=== PATIENT | male | born 1965 | race American Indian/Alaskan Native ===

== ENCOUNTER 2017-05-16 19:00 | Emergency (ER) | payer BC ==
[2017-05-16 19:01] VITALS: BMI 47.3
[2017-05-16 19:25] VITALS: BP 198/90; PULSE 51; RESP 18; TEMP 98.1; O2SAT 95
== END 2017-05-16 21:31 | disposition left against medical advice (07) ==
LOC: ED 19:00
DX: Z02.89 Encounter for other administrative examinations (principal); M79.89 Other specified soft tissue disorders

== ENCOUNTER 2017-12-20 15:19 | Inpatient (IN) | payer BC ==
[2017-12-20 15:20] VITALS: BMI 53.8
[2017-12-20 17:00] LABS: BASO # 0.01 K/mm3 (0.0-2.0); BASO % 0.2 % (0.0-3.0); EOS # 0.1 (0.0-0.7); EOS % 1.3 % (1.5-5.0); GRAN # 2.2 (1.4-6.5); GRAN % 41.6 % (50.0-68.0); HEMOGLOBIN 11.4 g/dL (14.0-18.0); LYMPH # 2.4 (1.2-3.4); LYMPH % 44.8 % (22.0-35.0); MEAN CELL VOLUME 97.9 fl (80.0-105.0); MEAN CORPUSCULAR HGB CONC 34.8 g/dl (31.0-37.0); MEAN PLATELET VOLUME 10.1 fl (7.0-11.0); MONO # 0.6 (0.1-0.6); MONO % 12.1 % (1.0-6.0); RBC 3.35 10^6/uL (3.5-6.1); RED CELL DISTRIBUTION WIDTH 12.7 % (11.5-14.5); WHITE BLOOD COUNT 5.3 10^3/ul (4.5-11.0)
[2017-12-20 17:11] LABS: INR 1.09 (0.93-1.08); PARTIAL THROMBOPLASTIN TIME 33.5 Seconds (25.1-36.5); PROTHROMBIN TIME 12.4 SECONDS (9.4-12.5)
[2017-12-20 18:01] LABS: ALB/GLOB RATIO 0.9 (1.1-1.8); ALBUMIN 3.5 g/dL (3.0-4.8); CALCIUM 9.6 mg/dL (8.4-10.5)
[2017-12-20 18:11] LABS: TROPONIN I 0.06 ng/mL
[2017-12-20 18:13] LABS: CK-MB 1.8 ng/mL (0.0-3.6)
--- NOTE | 2017-12-20 18:35 | RAD ---
HISTORY: Shortness of breath. COMPARISON: 04/19/2016 FINDINGS: LUNGS: No active pulmonary disease. PLEURA: No significant pleural effusion identified, no pneumothorax apparent. CARDIOVASCULAR: Cardiomegaly. No evidence of acute, significant cardiovascular disease. OSSEOUS STRUCTURES: No significant abnormalities. VISUALIZED UPPER ABDOMEN: Normal. OTHER FINDINGS: None. IMPRESSION: No active pulmonary disease. Cardiomegaly a new finding compared to the prior study.
--- NOTE | 2017-12-20 18:40 | ED PDOC ---
Arrival/HPI - General Chief Complaint: Shortness Of Breath Time Seen by Provider: 12/20/17 15:55 Historian: Patient - History of Present Illness Narrative History of Present Illness (Text): 12/20/17 19:44 Patient is a 52 yo male past medical history of DM, htn, cad, presents to ED from PMD office with history of dsypnea with exertion, swelling to legs and abdomen for the past 2-3 weeks. Patient reports several weeks ago developing cough, congestion, sore throat. State he was treated for "strep throat" but still has congestion and cough, now with increased swelling to legs and abdomen. Patient sent from Dr. Falcon office for evaluation and admission. Symptom Onset: Gradual Past Medical History - Infectious Disease Hx of Infectious Diseases: None - Tetanus Immunization Tetanus Immunization: Unknown - Cardiac Hx Congestive Heart Failure: Yes Hx AR: Yes Hx Hypertension: Yes - Pulmonary Hx Respiratory Disorders: Yes Hx Respiratory Tract Infection: Yes - Neurological Hx Alzheimer's Disease: No HX Cerebrovascular Accident: No Hx Dementia: No Hx Dizziness: No Hx Meningitis: No Hx Parkinson's Disease: No Hx Seizures: No Hx Transient Ischemic Attacks (TIA): No - HEENT Hx HEENT Disorder: Yes (reading glasses) Hx Cataracts: No Hx Difficulty Chewing: No Hx Epistaxis: No Hx Glaucoma: No Hx Macular Degeneration: No - Renal Hx Renal Disorder: No Hx Dialysis: No Hx Kidney Stones: No Hx Neurogenic Bladder: No Hx Renal Cancer: No - Endocrine/Metabolic Hx Endocrine Disorders: Yes Hx Diabetes Mellitus Type 2: Yes - Hematological/Oncological Hx Blood Transfusions: Yes Hx Blood Transfusion Reaction: No - Integumentary Hx Dermatological Disorder: No Hx Basal Cell Carcinoma: No Hx Eczema: No Hx Melanoma: No Hx Psoriasis: No Hx Squamous Cell Carcinoma: No Other/Comment: scar r knee and from welding accidents on arms legs and torso - Musculoskeletal/Rheumatological Hx Falls: No - Gastrointestinal Hx Gastrointestinal Disorders: Yes (obese) Hx Colostomy: No Hx Crohn's Disease: No Hx Diverticulitis: No Hx Gall Bladder Disease: No Hx Gastroesophageal Reflux: No Hx Pancreatitis: No - Genitourinary/Gynecological Hx Genitourinary Disorders: No Hx Hematuria: No Hx Incontinence: No Hx Prostate Problems: No Hx Sexually Transmitted Diseases: No Hx Urinary Tract Infection: No - Psychiatric Hx Emotional Abuse: No Hx Physical Abuse: No Hx Substance Use: No - Surgical History Hx Cardiac Catheterization: Yes Hx Coronary Stent: Yes (X1) Hx Orthopedic Surgery: Yes (right knee replacement) - Anesthesia Hx Anesthesia Reactions: No Hx Malignant Hyperthermia: No - Suicidal Assessment Feels Threatened In Home Enviroment: No Family/Social History Family/Social History: Unknown Family HX Smoking Status: Never Smoked Hx Alcohol Use: No Hx Substance Use: No Hx Substance Use Treatment: No Allergies/Home Meds Allergies/Adverse Reactions: Allergies aspirin Allergy (Verified 12/20/17 15:35) ANAPHYLAXIS Home Medications: Home Meds Medication Instructions Recorded Confirmed Clonidine HCl [Catapres] 0.1 mg PO DAILY 01/10/16 12/14/17 Clopidogrel [Plavix] 75 mg PO DAILY 01/10/16 12/14/17 Colchicine 0.6 mg PO TID PRN 01/10/16 12/14/17 Febuxostat [Uloric] 40 mg PO DAILY 01/10/16 12/14/17 Furosemide [Lasix] 40 mg PO BID 01/10/16 12/14/17 Insulin Aspart [Novolog] 30 units SC TID 01/10/16 12/14/17 Insulin Detemir [Levemir Flextouch] 60 units SC BID 01/10/16 12/14/17 Multivit-Min/FA/Lycopen/Lutein 1 tab PO DAILY 01/10/16 12/14/17 [Centrum Silver Tablet] Nebivolol [Bystolic] 10 mg PO DAILY 01/10/16 12/14/17 [place]y-3/Dha/Epa/Fish Oil [Fish Oil 1 cap PO DAILY 01/10/16 12/14/17 [place]y-3 Softgel] Potassium Chloride [Klor-Con 10] 10 meq PO DAILY 01/10/16 12/14/17 Pramlintide Acetate [Symlinpen 60] 60 units SC DAILY 01/10/16 12/14/17 metOLazone [Zaroxolyn] 5 mg PO DAILY 01/10/16 12/14/17 Review of Systems - Review of Systems Constitutional: Fatigue. absent: Fevers Eyes: absent: Vision Changes ENT: absent: Hearing Changes Respiratory: SOB, Cough. absent: Sputum, Wheezing Cardiovascular: Edema, PORTILLO. absent: Chest Pain, Palpitations, Calf Pain, Orthopnea, Syncope Gastrointestinal: Appetite Changes. absent: Abdominal Pain, Nausea, Hematochezia, Hematemesis Genitourinary Male: absent: Dysuria, Frequency Musculoskeletal: absent: Back Pain Skin: absent: Rash Neurological: absent: Headache, Focal Weakness Endocrine: absent: Polyuria Physical Exam Vital Signs Reviewed: Yes Vital Signs Temp Pulse Resp BP Pulse Ox 12/20/17 22:00 83 12/20/17 21:02 62 162/105 H 12/20/17 18:41 75 18 196/90 H 97 12/20/17 18:00 18 12/20/17 15:35 97.4 F L 71 18 197/98 H 96 Temperature: Afebrile Blood Pressure: Hypertensive Appearance: Positive for: Uncomfortable Pain Distress: Mild Mental Status: Positive for: Alert and Oriented X 3 Finger Stick Blood Glucose: 77 - Systems Exam Head: Present: Atraumatic Pupils: Present: PERRL Mouth: Present: Moist Mucous Membranes Pharnyx: No: ERYTHEMA Nose (Internal): Present: Normal Inspection Neck: Present: Normal Range of Motion, JVD Respiratory/Chest: Present: Clear to Auscultation. No: Respiratory Distress, Wheezes, Tachypneic Cardiovascular: Present: Regular Rate and Rhythm, Murmurs Abdomen: Present: Distention. No: Peritoneal Signs Rectal: No: Gross Blood Back: No: CVA Tenderness Upper Extremity: No: Cyanosis Lower Extremity: Present: Edema, Neurovascularly Intact. No: CALF TENDERNESS Neurological: Present: Motor Func Grossly Intact, Normal Sensory Function Skin: Present: Warm Psychiatric: Present: Alert, Normal Insight, Normal Concentration Medical Decision Making ED Course and Treatment: Patient sent from PMD office noted to have leg edema, sob with exertion. EKG with no acute changes. Report Date : 12/20/2017 18:33:27 Procedure: Chest xray Dictator : Ángel Botello MD IMPRESSION: No active pulmonary disease. Cardiomegaly a new finding compared to the prior study. Patient took extra lasix prior to arrival. Seen by nurse clinical Dr. Spring in ED. On re-exam, at rest, he is breathing comfortably, denies abdominal or chest pain. Eats without difficulty, no nausea or vomiting. Clonidine ordered for HTN. Dr. Falcon updated with patient's status. Patient to be admitted to Dr. Vick Vallecillo's service as hospitalist service capped at this point. Reassessment Condition: Re-examined - Lab Interpretations Lab Results: 12/20/17 16:55 12/20/17 17:00 Lab Results 12/20/17 17:15: Influenza Typ A,B (EIA) Negative for flu a/b 12/20/17 17:00: Sodium 140, Potassium 3.6, Chloride 99, Carbon Dioxide 33, Anion Gap 12, BUN 54 H, Creatinine 1.8 H, Est GFR ( Amer) 48, Est GFR ( Non-Af Amer) 40, Random Glucose 75, Calcium 9.6, Total Bilirubin 0.7, AST 56, ALT 40, Alkaline Phosphatase 91, Lactate Dehydrogenase 795 H, Total Creatine Kinase 271 H, CK-MB (CK-2) 1.8, CK-MB (CK-2) % Cancelled, Troponin I 0.06, NT- Pro-B Natriuret Pep 1460 H, Total Protein 7.3, Albumin 3.5, Globulin 3.8, Albumin/Globulin Ratio 0.9 L 12/20/17 17:00: PT 12.4, INR 1.09 H, APTT 33.5 12/20/17 16:55: WBC 5.3, RBC 3.35 L, Hgb 11.4 L, Hct 32.8 L, MCV 97.9, MCH 34.0 , MCHC 34.8, RDW 12.7, Plt Count 197, MPV 10.1, Gran % 41.6 L, Lymph % (Auto) 44.8 H, [place] % (Auto) 12.1 H, Eos % (Auto) 1.3 L, Baso % (Auto) 0.2, Gran # 2.20 , Lymph # 2.4, [place] # 0.6, Eos # 0.1, Baso # 0.01 12/20/17 16:20: POC Glucose (mg/dL) 77 - RAD Interpretation Radiology Orders: 12/20/17 16:13 CHEST PORTABLE [RAD] Stat - EKG Interpretation EKG Interpretation (Text): 12/20/17 19:53 EKG at 16:09 normal sinus rhythm rate of [address] elevations Interpreted by ED Physician: Yes Type: 12 lead EKG - Medication Orders Current Medication Orders: Clonidine HCl (Catapres) 0.1 mg PO BID DANNY Clopidogrel Bisulfate (Plavix) 75 mg PO DAILY DANNY Furosemide (Lasix) 40 mg IVP DAILY DANNY Insulin Human Regular (Humulin R High) 0 units SC ACHS DANNY PRN Reason: Protocol Last Admin: 12/20/17 21:57 Dose: Not Given Non-Admin Reason: Blood Sugar Parameter Nebivolol [Bystolic] (10 Mg) 10 mg PO DAILY DANNY Potassium Chloride (Klor-Con 10) 10 meq PO DAILY DNANY Discontinued Medications Clonidine HCl (Catapres) 0.1 mg PO ONCE STA Stop: 12/20/17 19:28 Last Admin: 12/20/17 21:02 Dose: 0.1 mg MAR Pulse and Blood Pressure Document 12/20/17 21:02 HI (Rec: 12/20/17 21:02 [place] [id number]) Pulse Pulse Rate (60-90) 62 Blood Pressure Blood Pressure (100/60-150/90) 162/105 Furosemide (Lasix) 40 mg IVP ONCE ONE Stop: 12/20/17 20:00 Last Admin: 12/20/17 21:02 Dose: 40 mg MAR Blood Pressure Document 12/20/17 21:02 HI (Rec: 12/20/17 21:03 [place] [id number]) Blood Pressure Blood Pressure (100/60-150/90) 162/105 IVP Administration Document 12/20/17 21:02 HI (Rec: 12/20/17 21:03 [id number] Charges for Administration # of IVP Administrations 1 Disposition/Present on Arrival - Present on Arrival Any Indicators Present on Arrival: Yes History of DVT/PE: No History of Uncontrolled Diabetes: Yes Urinary Catheter: No History of Decub. Ulcer: No History Surgical Site Infection Following: None - Disposition Have Diagnosis and Disposition been Completed?: Yes Diagnosis: Edema, CHF (congestive heart failure) Disposition: HOSPITALIZED Disposition Time: 19:00 Patient Plan: Admission, Telemetry Patient Problems: Current Active Problems Problem Status Onset CHF (congestive heart failure) Acute Edema Acute Condition: FAIR
[2017-12-20] MEDS ORDERED: Insulin Reg-HIGH-Coverage SC SCH (22:00)
--- NOTE | 2017-12-20 23:40 | CARD ---
APPROVED REPORT EKG Measurement Heart [id number] <Conclusion> Normal sinus rhythm Possible Anterior infarct, age undetermined Abnormal ECG
--- NOTE | 2017-12-21 00:07 | CON ---
CARDIOLOGY CONSULTATION DATE: 12/20/2017 HISTORY: The patient is a 52-year-old male who was sent here from his PMD's office for progressive pedal edema. PAST MEDICAL HISTORY: The patient's past medical history is notable for hypertension, diabetes mellitus, obesity, and hypercholesterolemia. He has a history of a cardiomyopathy, which on recent cardiac evaluation is improved. His ejection fraction went from 40% up to 50%. His last stress test and echocardiogram confirmed, which was performed a few days ago. SOCIAL HISTORY: The patient does not smoke. REVIEW OF SYSTEMS: A 14-point review of systems is reviewed in detail. He does complain of shortness of breath. Negative angina. Review of his diet, the patient has cut down on his calories; however, his salt intake is still high. PHYSICAL EXAMINATION: VITAL SIGNS: Blood pressure is 190 systolic and heart rate in the 70s. NECK: Negative JVD. LUNGS: Decreased breath sounds bilaterally. HEART: Reveal S1 and S2. EXTREMITIES: 1 to 2+ edema. DIAGNOSTIC DATA: EKG shows no acute changes. LABORATORY DATE: The creatinine is pending. Chest x-ray shows no CHF. IMPRESSION: 1. Accelerated hypertension. 2. History of cardiomyopathy, which is improved. 3. Diabetes mellitus. 4. Hypertension. 5. Hypercholesterolemia. 6. Obesity. 7. Pedal edema. 8. Likely renal insufficiency. PLAN: Given these findings, we will start the patient on low-salt diet. I have discussed with him about low-salt intake. Awaiting for his BUN and creatinine to come back. We will begin IV Lasix. Tarik Spring MD
[2017-12-21] MEDS ORDERED: Potassium Chloride 10 mEq ER Tab PO SCH (10:00)
[2017-12-21] MEDS: Insulin Reg-HIGH-Coverage SC SCH ×3 (12:58→22:30)
--- NOTE | 2017-12-21 13:33 | US ---
PROCEDURE: Ultrasound of the Kidneys HISTORY: SUSAN COMPARISON: 03/03/2013 abdominal ultrasound. TECHNIQUE: Sonogram of the kidneys. FINDINGS: RIGHT KIDNEY: Measures: 6.8 x 11.1 cm. Normal in size, contour and echogenicity. No stone, solid mass lesion or hydronephrosis visualized. LEFT KIDNEY: Measures: 7.8 x 12.3 cm. Normal in size, contour and echogenicity. No stone, solid mass lesion or hydronephrosis visualized. OTHER FINDINGS: None. IMPRESSION: Unremarkable renal sonogram.
--- NOTE | 2017-12-21 13:34 | US ---
PROCEDURE: Urinary bladder ultrasound HISTORY: SUSAN COMPARISON: 03/03/2013 ultrasound urinary bladder TECHNIQUE: Standard protocol for this study/examination. FINDINGS: Urinary bladder assessment: Prevoid volume: 1286 ml Postvoid residual: 67.3 rib ml Intrinsic, mural, perivesical abnormalities: None Ureteral jets: Not visualized bilaterally. Incidental finding(s): Small volume prostate. Transabdominal measurements correspond to a prostate volume 6.1 mL. IMPRESSION: Large capacitance bladder, small postvoid residual. No focal abnormalities.
--- NOTE | 2017-12-21 14:45 | CP.PCM.CON ---
History of Present Illness - History of Present Illness History of Present Illness: Initial Nephrology Consultation: Assessment: Stable Acute Kidney Injury (N17.9) ? etiology Diabetic chronic Kidney Disease (E11.22)/Hypertensive Chronic Kidney Disease ( I12.9) Chronic Kidney Disease (N18.2) Stage 2 with ? mg proteinuria (R80.9) possibly due to AKIs Anemia (D64.9), HTN (I12.9) morbid obesity, fluid overload moderate pulm HTN large capacitance urinary bladder Plan No acute need for renal replacement therapy at this time. Hypertension control with meds as ordered. Patient not on ACEI/ARB due to SUSAN Monitor Input/Output, daily weights and renal function with basic metabolic panel continue with lasix as per cardiology supplement electrolytes Check urine analysis, spot protein/creatinine and albumin/creatinine ratio, done renal/bladder sonogram. further work up depending upon urine studies Dose meds/antibiotics for reduced GFR. Avoid fleets enema/magnesium based laxatives. Avoid nephrotoxins/NSAIDs/ iodinated contrast (unless needed emergently) Glycemic control Further work up/management as per primary team weight loss Thanks for allowing me to participate in care of your patient. Will follow patient with you. Please call if any Qs Dr Miquel Vega Office: [phone] Chief Complaint; legs swelling HPI: Pt is a 52 M with hx of diabetes Mellitus (10 years), hypertension (many years) morbid obesity, episodes of SUSAN since 2002 with peaked cr 2.0 and baseline close to 1.1 presented with complaints of worsening leg swelling and abdomen distension over last few weeks. pt reports it over last few months. not aware about kidney issues in past Denies OTC/herbal meds or NSAIDs No recent iodinated contrast exposure. No obvious episodes of low BP. ROS: Cardiovascular: No chest pain. Pulmonary: No shortness of breath at present Gastrointestinal: denies abdominal pain No nausea. No vomiting. but c/o abdomen distension Genitourinary: No pain while urinating. Denies blood in urine. no symptoms of BPH All other negative Physical Examination: General Appearance: Comfortable, in no acute respiratory distress, co-operative . morbid obesity Vitals reviewed and noted as below Head; Atraumatic, normocephalic ENT: no ulcers no thrush. Tongue is midline. Oropharynx: no rash or ulcers. EYES: Pupils are equal, round and reactive to light accommodation. Eye muscles and extraocular movement intact. Sclera is anicteric. Neck; supple no lymphadenopathy, no thyromegaly or bruit Lungs: Normal respiratory rate/effort. Breath sounds bilateral equal and clear Heart: Normal rate. s1s2 normal. No rub or gallop. Extremities: 2-3+ edema. No varicose veins Neurological: Patient is alert, awake and oriented to person, place and time. No focal deficit. Strength bilateral appropriate and equal Skin: Warm and dry. Normal turgor. No rash. Palpitation: Normal elasticity for age Abdomen: Abdomen is soft. Bowel sounds +. There is no abdominal tenderness, no guarding/rigidity no organomegaly. abdomen wall edema + very distended hence exam limited Psych: normal insight and normal affect/mood MSK: no joint tenderness or swelling. Digits and nails normal, no deformity : kidney or bladder not palpable but exam limited due to obesity Labs/imaging reviewed. Past medical history, past surgical history, family history, social history, allergy reviewed and noted as below Family hx: no hx of CKD. Rest non-contributory echo moderate pulm HTN CPK 271 BNP 1400 renal sono WNL. bladder sono 1286 mL PVR minimal: large capacitance bladder Past Patient History - Infectious Disease Hx of Infectious Diseases: None - Tetanus Immunizations Tetanus Immunization: Unknown - Past Medical History & Family History Past Medical History?: Yes - Past Social History Smoking Status: Never Smoked - CARDIAC Hx Cardiac Disorders: Yes Hx Hypertension: Yes - PULMONARY Hx Respiratory Disorders: No - NEUROLOGICAL Hx Neurological Disorder: No - HEENT Hx HEENT Problems: No - RENAL Hx Chronic Kidney Disease: No - ENDOCRINE/METABOLIC Hx Endocrine Disorders: Yes Hx Diabetes Mellitus Type 2: Yes - HEMATOLOGICAL/ONCOLOGICAL Hx Blood Disorders: No - INTEGUMENTARY Hx Dermatological Problems: No - MUSCULOSKELETAL/RHEUMATOLOGICAL Hx Musculoskeletal Disorders: Yes Hx Arthritis: Yes Hx Falls: No - GASTROINTESTINAL Hx Gastrointestinal Disorders: No - GENITOURINARY/GYNECOLOGICAL Hx Genitourinary Disorders: No - PSYCHIATRIC Hx Psychophysiologic Disorder: No Hx Substance Use: No - SURGICAL HISTORY Hx Surgeries: Yes Hx Coronary Stent: Yes Other/Comment: Right knee replacement - ANESTHESIA Hx Anesthesia Reactions: No Hx Malignant Hyperthermia: No Meds Allergies/Adverse Reactions: Allergies Allergy/AdvReac Type Severity Reaction Status Date / Time aspirin Allergy ANAPHYLAXIS Verified 12/20/17 15:35 - Medications Medications: Current Medications Clonidine HCl (Catapres) 0.1 mg PO BID [facility] Last Admin: 12/21/17 10:37 Dose: 0.1 mg Clopidogrel Bisulfate (Plavix) 75 mg PO DAILY [facility] Last Admin: 12/21/17 10:38 Dose: 75 mg Furosemide (Lasix) 40 mg IVP BID [facility] Insulin Human Regular (Humulin R High) 0 units SC ACHS [facility] PRN Reason: Protocol Last Admin: 12/21/17 12:58 Dose: 7 units Nebivolol [Bystolic] (10 Mg) 10 mg PO DAILY [facility] Last Admin: 12/21/17 10:39 Dose: Not Given Potassium Chloride (Klor-Con 10) 10 meq PO DAILY [facility] Last Admin: 12/21/17 10:38 Dose: 10 meq Results - Vital Signs Recent Vital Signs: Last Vital Signs Temp 97.9 F 12/21/17 06:00 Pulse 69 12/21/17 10:37 Resp 20 12/21/17 06:00 BP 156/83 H 12/21/17 10:39 Pulse Ox 95 12/21/17 06:00 - Labs Result Diagrams: 12/20/17 16:55 12/20/17 17:00 Labs: Laboratory Results - last 24 hr 12/20/17 21:55 POC Glucose (mg/dL) 181 H
--- NOTE | 2017-12-21 15:07 | HP ---
HISTORY OF PRESENT ILLNESS: I was called to put him on my service from the emergency room. 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 He was treated for strep throat on an outpatient basis as well as congestion and cough, increasing swelling in the legs and he was sent to the emergency room by the physician with failed outpatient treatment. He has a past medical history of diabetes, hypertension,CAD. He is morbidly obese. He has respiratory infection, respiratory disorders. He wears reading glasses. Diabetes. He had blood transfusions in the past. He had scar of the right knee from a welding accident on arms, legs, and torso. He is morbidly obese. He had cardiac catheterization with coronary stent, right knee replacement. Hypertension in the family. SOCIAL HISTORY: Never smoked. No alcohol, no drugs. ALLERGIES: HE IS ALLERGIC TO ASPIRIN. MEDICATIONS: He take Catapres, Plavix, colchicine for gout, Uloric, Lasix, NovoLog for diabetes, Levemir, multivitamin, Bystolic for hypertension, omega-3 fatty oil, potassium, SymlinPen and Zaroxolyn. REVIEW OF SYSTEMS: He is fairly comfortable at this time. No apparent fevers, a little bit tired, no changes in vision or changes in hearing. He is a little short of breath, coughing. No wheezing. He has shortness of breath. He has dyspnea on exertion. He has edema of the legs. He has appetite changes, not hungry. No problems with urinating, no back pain, no apparent rashes or ulcers that are new. No headache or focal weakness. No problems with urinating. PHYSICAL EXAMINATION VITAL SIGNS: He has 97.4 temperature, 71 pulse, 18 respiratory rate, blood pressure 197/98, and O2 sat is 96% on room air. HEENT: Head is atraumatic, normocephalic. Extraocular muscles are intact. Pupils equally reactive to light. Throat is moist. NECK: Supple. HEART: Regular rate. LUNGS: Decreased breath sounds bilaterally, but clear to auscultation. ABDOMEN: Soft. Morbidly obese, nontender. Positive bowel sounds. No guarding, no rebound, no CVA tenderness. RECTAL: Was done in the ER, no gross blood. No CVA tenderness. EXTREMITIES: He has +4/4 pitting edema bilaterally the legs. NEUROLOGIC: Cranial nerves II through XII are grossly intact. Motor function is grossly intact. Alert and oriented x3. LYMPHATICS: Thyroid is difficult to palpate. He is very obese. LABORATORY DATA: He has 5.3 white count, 11.4 hemoglobin, 32.8 hematocrit with 197,000 platelets and 1.19 INR. He has 140 sodium, potassium 3.6, BUN 54, creatinine 1.8. elevated BUN and creatinine. Sugar is 181, calcium is 9.6. Total bilirubin is 0.7. AST is 56, ALT is 40, alkaline phosphatase is 91, and lactate dehydrogenase is 795. Troponin I 0.06. BNP was high was at 1460, and total protein is 7.3. Negative for the flu. He had a chest x-ray, which showed cardiomegaly, new findings compared to prior study. He has consult with Dr. Spring I called Renal to evaluate his kidney function. He is back on his medications, will be diuresed. Hopefully, get out of bed to chair. I will check his insulin and his labs and will continue with aggressive treatment and care for CHF. I also discussed weight loss reckoning he is morbidly obese and he is a diabetic, so we discussed the diet. acute CHF, edema, and dyspnea on exertion. Ángel Vallecillo DO MTD
[2017-12-21 17:07] LABS: URINE BILIRUBIN NEGATIVE (NEGATIVE); URINE BLOOD SMALL (NEGATIVE); URINE GLUCOSE (UA) 250 mg/dL (NEGATIVE); URINE LEUKOCYTE ESTERASE NEGATIVE Leu/uL (NEGATIVE); URINE NITRATE NEGATIVE (NEGATIVE); URINE PROTEIN 100 mg/dL (<30 mg/dL); URINE UROBILINOGEN 0.2 E.U./dL (<1 E.U./dL)
[2017-12-21 17:16] LABS: URINE APPEARANCE SL CLOUDY (CLEAR); URINE COLOR YELLOW (YELLOW)
[2017-12-21 17:34] LABS: CREATININE,RANDOM URINE 53 mg/dL; TOTAL PROTEIN,RANDOM URINE 252 mg/L
[2017-12-21 17:35] LABS: URINE EPITHELIAL CELLS 0 - 2 /hpf (0-5); URINE WBC 0 - 2 /hpf (0-6)
--- NOTE | 2017-12-21 19:08 | PN ---
DATE: 12/21/2017 CARDIOLOGY FOLLOWUP NOTE SUBJECTIVE: The patient's edema is slightly better with IV Lasix. OBJECTIVE: VITAL SIGNS: Blood pressure is 156/83, the heart rate is in the 60s. NECK: Negative JVD. LUNGS: Decreased breath sounds without rales. HEART: Reveals S1 and S2. EXTREMITIES: 1+ edema. LABORATORY: Hemoglobin is 11.4. Chemistries, BUN and creatinine are 54 and 1.8 with a GFR of 48. IMPRESSION: 1. Morbid obesity. 2. . 3. . 4. . 5. Hypertension. 6. Renal insufficiency. Given these findings, I have discussed with the patient about weight loss program. The patient wants to know about bariatric surgery. Tarik Spring MD
[2017-12-22 06:50] VITALS: BP 150/75; RESP 20; TEMP 97.7; O2SAT 93
[2017-12-22 07:10] LABS: HEMOGLOBIN 10.5 g/dL (14.0-18.0); MEAN CELL VOLUME 97.8 fl (80.0-105.0); MEAN CORPUSCULAR HEMOGLOBIN 32.5 pg (25.0-35.0); MEAN CORPUSCULAR HGB CONC 33.2 g/dl (31.0-37.0); MEAN PLATELET VOLUME 10.5 fl (7.0-11.0); RBC 3.23 10^6/uL (3.5-6.1); RED CELL DISTRIBUTION WIDTH 12.5 % (11.5-14.5); WHITE BLOOD COUNT 3.9 10^3/ul (4.5-11.0)
[2017-12-22 07:51] LABS: ALB/GLOB RATIO 0.9 (1.1-1.8); ALBUMIN 3.1 g/dL (3.0-4.8); CALCIUM 9.3 mg/dL (8.4-10.5)
[2017-12-22] MEDS: Insulin Reg-HIGH-Coverage SC SCH (08:16)
[2017-12-22] MEDS ORDERED: Potassium Chloride 20 mEq ER Tab PO SCH (09:55)
--- NOTE | 2017-12-22 10:15 | PN ---
DATE: SUBJECTIVE: I saw him walking in his room. He is still having swollen legs. He is morbidly obese. He is eating well. Dr. Spring bumped up the Lasix to 40 mg twice a day. PHYSICAL EXAMINATION: VITAL SIGNS: He has a 97.7 temp, 72 pulse, 150/75 blood pressure, 20 respiratory rate, 93% O2 sat on room air. HEENT: His head is atraumatic, normocephalic. HEART: His heart is regular rate. LUNGS: Decreased breath sounds, but clear. ABDOMEN: Soft, morbidly obese. EXTREMITIES: +2/4 pitting edema. Maybe some improvement with the Lasix; hopefully it will improve with twice a day. MEDICATIONS: He is currently on Catapres, insulin, potassium, Lasix twice a day, Bystolic and Plavix. LABORATORY DATA: He has a 138 sodium, potassium 3.6. BUN is down to 45, creatinine is down to 1.5, improving. GFR is 49, blood sugar is 191, calcium is 9.3, total bili is 0.7, AST is 43, ALT is 39, alk phos 77, total protein 6.6. White count 3.9, hemoglobin 10.5, hematocrit 31.6, platelets of 187. ASSESSMENT AND PLAN: He is improving. He probably needs another day of IV diuresis. As per Dr. Spring, his kidney functions are improving. He is here for diabetes, coronary artery disease, congestive heart failure with edema, hypertension, renal insufficiency, obesity. We will check his labs tomorrow, diurese him as per Dr. Spring and Dr. Vega. Ángel Vallecillo DO
[2017-12-22 11:17] VITALS: PULSE 68
--- NOTE | 2017-12-22 15:06 | CP.PCM.PN ---
Subjective - Date & Time of Evaluation Date of Evaluation: 12/22/17 Time of Evaluation: 10:00 - Subjective Subjective: Follow up Nephrology Consultation: Assessment: Stable Acute Kidney Injury (N17.9) ? etiology Diabetic chronic Kidney Disease (E11.22)/Hypertensive Chronic Kidney Disease ( I12.9) Chronic Kidney Disease (N18.2) Stage 2 with ? mg proteinuria (R80.9) possibly due to AKIs Anemia (D64.9), HTN (I12.9) morbid obesity, fluid overload moderate pulm HTN large capacitance urinary bladder Plan No acute need for renal replacement therapy at this time. Hypertension control with meds as ordered. Patient not on ACEI/ARB due to SUSAN Monitor Input/Output, daily weights and renal function with basic metabolic panel continue with lasix as per cardiology supplement electrolytes Dose meds/antibiotics for reduced GFR. Avoid fleets enema/magnesium based laxatives. Avoid nephrotoxins/NSAIDs/ iodinated contrast (unless needed emergently) Glycemic control Further work up/management as per primary team weight loss Thanks for allowing me to participate in care of your patient. Will follow patient with you. Please call if any Qs Dr Miquel Vega Office: [phone] Chief Complaint; legs swelling HPI: Pt is a 52 M with hx of diabetes Mellitus (10 years), hypertension (many years) morbid obesity, episodes of SUSAN since 2002 with peaked cr 2.0 and baseline close to 1.1 presented with complaints of worsening leg swelling and abdomen distension over last few weeks. pt reports it over last few months. not aware about kidney issues in past Denies OTC/herbal meds or NSAIDs No recent iodinated contrast exposure. No obvious episodes of low BP. ROS: Cardiovascular: No chest pain. Pulmonary: No shortness of breath at present Gastrointestinal: denies abdominal pain No nausea. No vomiting. but c/o abdomen distension Genitourinary: No pain while urinating. Denies blood in urine. no symptoms of BPH All other negative Physical Examination: General Appearance: Comfortable, in no acute respiratory distress, co-operative . morbid obesity Vitals reviewed and noted as below Head; Atraumatic, normocephalic ENT: no ulcers no thrush. Tongue is midline. Oropharynx: no rash or ulcers. EYES: Pupils are equal, round and reactive to light accommodation. Eye muscles and extraocular movement intact. Sclera is anicteric. Neck; supple no lymphadenopathy, no thyromegaly or bruit Lungs: Normal respiratory rate/effort. Breath sounds bilateral equal and clear Heart: Normal rate. s1s2 normal. No rub or gallop. Extremities: 2-3+ edema. No varicose veins Neurological: Patient is alert, awake and oriented to person, place and time. No focal deficit. Strength bilateral appropriate and equal Skin: Warm and dry. Normal turgor. No rash. Palpitation: Normal elasticity for age Abdomen: Abdomen is soft. Bowel sounds +. There is no abdominal tenderness, no guarding/rigidity no organomegaly. abdomen wall edema + very distended hence exam limited Psych: normal insight and normal affect/mood MSK: no joint tenderness or swelling. Digits and nails normal, no deformity : kidney or bladder not palpable but exam limited due to obesity Labs/imaging reviewed. Past medical history, past surgical history, family history, social history, allergy reviewed and noted as below Family hx: no hx of CKD. Rest non-contributory echo moderate pulm HTN CPK 271 BNP 1400 renal sono WNL. bladder sono 1286 mL PVR minimal: large capacitance bladder Objective - Vital Signs/Intake and Output Vital Signs (last 24 hours): Temp Pulse Resp BP Pulse Ox 97.7 F 68 20 150/75 93 L 12/22/17 06:00 12/22/17 10:00 12/22/17 06:00 12/22/17 06:00 12/22/17 06:00 Intake and Output: 12/22/17 12/22/17 06:59 18:59 Intake Total 980 Balance 980 - Labs Labs: 12/22/17 06:45 12/22/17 06:45 PT 12.4 SECONDS (9.4-12.5) 12/20/17 17:00 INR 1.09 (0.93-1.08) H 12/20/17 17:00 APTT 33.5 Seconds (25.1-36.5) 12/20/17 17:00
--- NOTE | 2017-12-22 16:17 | PN ---
CARDIOLOGY FOLLOWUP DATE OF SERVICE: 12/22/2017 SUBJECTIVE: The patient's breathing is improved. He is ambulating without symptoms. OBJECTIVE: VITAL SIGNS: On physical exam, blood pressure is 150/75, heart rate is in the 70s. NECK: Negative JVD. LUNGS: Without rales. HEART: With S1 and S2. EXTREMITIES: Marked decreased edema. LABORATORY DATA: BUN and creatinine are 45 and 1.5. The hemoglobin is 10.5. Glucose is 215. IMPRESSION: 1. Accelerated hypertension which is improved on low-salt diet and clonidine. 2. Improved cardiomyopathy. 3. Pedal edema, improved with low-salt diet and intravenous Lasix. 4. Anemia. 5. Morbid obesity. PLAN: Given these findings, I have discussed in detail with the patient and his about the need to reduce salt intake. I have discussed the need for weight loss which may include evaluation of Bariatric Surgery which the patient is agreeable to. The patient is discharged today with instructions and medications. Tarik Spring MD
--- NOTE | 2017-12-23 04:28 | DS ---
SUBJECTIVE: He is doing better. He is walking around. Dr. Spring has him on Lasix 40 mg b.i.d., also his clonidine will be increased to 0.1 mg b.i.d. He will be on iron, potassium, Bystolic, Plavix, and multivitamins. He understands that I was there and I gave instructions. PHYSICAL EXAMINATION: VITAL SIGNS: Temperature 97.7, pulse 72, blood pressure 150/75, respiratory rate 29, 92% O2 sat on room air. HEENT: Head atraumatic, normocephalic. HEART: Regular rate. LUNGS: Clear to auscultation. ABDOMEN: Morbidly obese, soft, nontender. EXTREMITIES: +2/4 pitting edema. LABORATORY DATA: White count 3.9, hemoglobin 10.5, hematocrit 31.6, platelets 187. Sodium 138, potassium of 3.6, BUN 45, creatinine 1.5, GFR is 49, blood sugar was 215, calcium is 9.3, total bili is 0.7, AST is 43, ALT is 39, alkaline phosphatase 77, total protein 6.6. PLAN: The plan is to discharge him. Watch a low-salt, low-sugar diet. He will follow up with Dr. Spring. He will be on Lasix 40 twice a day and clonidine twice a day. He understands that. Ángel Vallecillo DO
[2017-12-23] MEDS ORDERED: Multivitamin Therapeutic Tab PO SCH (08:00)
[2017-12-23 12:59] LABS: ALBUMIN (PEP) 2.8 g/dL (3.8-4.8); ALPHA-1-GLOBULIN (PEP) 0.3 g/dL (0.2-0.3)
== END 2017-12-22 13:36 | disposition home or self-care (01) | DRG 292 ==
LOC: ED 15:19 → ERH 20:11 → 3RSO 22:13 → ERH 22:26 → 3RSO 22:58
PROVIDERS: ADMIT Family Medicine; ATTEND Family Medicine
DX: I13.0 Hypertensive heart and chronic kidney disease with heart failure and stage 1 through stage 4 chronic kidney disease, or unspecified chronic kidney disease (principal); I50.9 Heart failure, unspecified; Z68.43 Body mass index [BMI] 50.0-59.9, adult; E11.22 Type 2 diabetes mellitus with diabetic chronic kidney disease; I27.20 Pulmonary hypertension, unspecified; E66.01 Morbid (severe) obesity due to excess calories; N18.2 Chronic kidney disease, stage 2 (mild); I25.10 Atherosclerotic heart disease of native coronary artery without angina pectoris; I42.9 Cardiomyopathy, unspecified; E78.00 Pure hypercholesterolemia, unspecified; D64.9 Anemia, unspecified; Z79.02 Long term (current) use of antithrombotics/antiplatelets; Z95.5 Presence of coronary angioplasty implant and graft; Z96.651 Presence of right artificial knee joint; Z88.6 Allergy status to analgesic agent

== ENCOUNTER 2018-03-09 06:50 | Inpatient (IN) | payer BC ==
[2018-03-09 06:59] VITALS: BMI 65.7
--- NOTE | 2018-03-09 07:29 | ED PDOC ---
Arrival/HPI - General Chief Complaint: Abnormal Skin Integrity Time Seen by Provider: 03/09/18 07:08 Historian: Patient - History of Present Illness Narrative History of Present Illness (Text): 03/09/18 07:22 A 52 year old male, whose past medical history includes diabetes, CHF, kidney insufficiency and frequent UTIs, presents to the emergency department complaining of a mass to his right lower abdomen. Patient reports the mass has been present for years but has been increasing in size over the past 4 months. Patient was seen by PMD and prescribed antibiotics to treat possible abdominal wall infection. Patient notes associated shortness of breath, decrease appetite and difficulty moving his bowels. Patient denies any fever, chills, nausea, vomiting, chest pain or any other complaints. PMD: Dr. Falcon Time/Duration: Other (4 months) Symptom Course: Worsening Past Medical History - Provider Review Nursing Documentation Reviewed: Yes - Infectious Disease Hx of Infectious Diseases: None - Tetanus Immunization Tetanus Immunization: Unknown - Cardiac Hx Cardiac Disorders: Yes Hx Hypertension: Yes - Pulmonary Hx Respiratory Disorders: No - Neurological Hx Neurological Disorder: No - HEENT Hx HEENT Disorder: No - Renal Hx Renal Disorder: No - Endocrine/Metabolic Hx Endocrine Disorders: Yes Hx Diabetes Mellitus Type 2: Yes - Hematological/Oncological Hx Blood Disorders: No - Integumentary Hx Dermatological Disorder: No - Musculoskeletal/Rheumatological Hx Musculoskeletal Disorders: Yes Hx Arthritis: Yes Hx Falls: No - Gastrointestinal Hx Gastrointestinal Disorders: No - Genitourinary/Gynecological Hx Genitourinary Disorders: No - Psychiatric Hx Psychophysiologic Disorder: No Hx Substance Use: No - Surgical History Hx Coronary Stent: Yes Other/Comment: Right knee replacement - Anesthesia Hx Anesthesia Reactions: No Hx Malignant Hyperthermia: No - Suicidal Assessment Feels Threatened In Home Enviroment: No Family/Social History - Physician Review Nursing Documentation Reviewed: Yes Family/Social History: No Known Family HX Smoking Status: Never Smoked Hx Alcohol Use: No Hx Substance Use: No Hx Substance Use Treatment: No Allergies/Home Meds Allergies/Adverse Reactions: Allergies aspirin Allergy (Verified 12/20/17 15:35) ANAPHYLAXIS Home Medications: Home Meds Medication Instructions Recorded Confirmed Clonidine HCl [Catapres] 0.1 mg PO BID 01/10/16 03/09/18 Clopidogrel [Plavix] 75 mg PO DAILY 01/10/16 03/09/18 Colchicine 0.6 mg PO TID PRN 01/10/16 03/09/18 Febuxostat [Uloric] 80 mg PO DAILY 01/10/16 03/09/18 Furosemide [Lasix] 40 mg PO BID 01/10/16 03/09/18 Insulin Aspart [Novolog] 48 units SC TID 01/10/16 03/09/18 Insulin Detemir [Levemir Flextouch] 80 units SC BID 01/10/16 03/09/18 Multivit-Min/FA/Lycopen/Lutein 1 tab PO DAILY 01/10/16 03/09/18 [Centrum Silver Tablet] Nebivolol [Bystolic] 10 mg PO DAILY 01/10/16 03/09/18 Jackson-3/Dha/Epa/Fish Oil [Fish Oil 1 cap PO DAILY 01/10/16 03/09/18 Jackson-3 Softgel] Potassium Chloride [Klor-Con 10] 10 meq PO DAILY 01/10/16 03/09/18 Pramlintide Acetate [Symlinpen 60] 60 units SC BID 01/10/16 03/09/18 metOLazone [Zaroxolyn] 5 mg PO DAILY 01/10/16 03/09/18 Cholecalciferol (Vitamin D3) 1,000 unit PO DAILY 03/09/18 03/09/18 [Vitamin D3] Review of Systems - Physician Review All systems were reviewed & negative as marked: Yes - Review of Systems Constitutional: absent: Fevers, Night Sweats Respiratory: SOB Cardiovascular: absent: Chest Pain Gastrointestinal: Appetite Changes, Other (right lower abdominal mass, difficulty moving bowels). absent: Nausea, Vomiting Physical Exam Vital Signs Reviewed: Yes Vital Signs Temp Pulse Resp BP Pulse Ox 03/09/18 14:42 98.6 F 68 18 132/80 98 03/09/18 14:30 98.2 F 76 18 163/73 H 97 03/09/18 13:00 162/92 H 03/09/18 11:14 97.7 F 68 18 168/93 H 98 03/09/18 09:00 72 18 161/98 H 98 03/09/18 06:59 98.2 F 68 18 158/91 H 96 Temperature: Afebrile Blood Pressure: Hypertensive Pulse: Regular Respiratory Rate: Normal Appearance: Positive for: Well-Appearing, Non-Toxic, Comfortable, Other ( Morbidly obese male) Pain Distress: None Mental Status: Positive for: Alert and Oriented X 3 - Systems Exam Head: Present: Atraumatic, Normocephalic Pupils: Present: PERRL Extroacular Muscles: Present: EOMI Conjunctiva: Present: Normal Mouth: Present: Moist Mucous Membranes Neck: Present: Normal Range of Motion Respiratory/Chest: Present: Clear to Auscultation, Good Air Exchange. No: Respiratory Distress, Accessory Muscle Use Cardiovascular: Present: Regular Rate and Rhythm, Normal S1, S2. No: Murmurs Abdomen: Present: Mass/Organomegaly (to right lower quadrant). No: Tenderness, Distention, Peritoneal Signs Back: Present: Normal Inspection Upper Extremity: Present: Normal Inspection. No: Cyanosis, Edema Lower Extremity: Present: Normal Inspection. No: Edema Neurological: Present: GCS=15, CN II-XII Intact, Speech Normal Skin: Present: Warm, Dry, Normal Color. No: Rashes Psychiatric: Present: Alert, Oriented x 3, Normal Insight, Normal Concentration Medical Decision Making ED Course and Treatment: 03/09/18 07:22 Impression: A 52 year old male with an enlarging mass to right lower abdomen over 4 months. Patient notes shortness of breath, decrease appetite and difficulty moving his bowels. Plan: -- Abdomen and pelvis CT -- Chest xray -- EKG -- Labs -- Blood and Urine culture -- Urinalysis -- Reassess and disposition Progress Notes: vice president of contracts paged, awaiting call back. 03/09/18 07:41 EKG shows NSR at [address]-segment elevations, normal intervals, normal axis. Interpreted by me. Report Date : 03/09/2018 08:02:54 Procedure: Chest xray Dictator : Preston Conn MD IMPRESSION: Mild cardiomegaly. Mild vascular congestion 03/09/18 08:28 Case discussed with the plant operations vice president, states he will evaluate patient at bedside. Report Date : 03/09/2018 11:20:12 PROCEDURE: CT Abdomen and Pelvis without intravenous contrast Dictator : Preston Conn MD IMPRESSION: No acute intra-abdominal findings - Lab Interpretations Microbiology Results: Microbiology Results 03/09/18 07:30 Blood-Venous Blood Culture - Preliminary NO GROWTH AFTER 4 DAYS 03/09/18 07:30 Blood-Venous Blood Culture - Preliminary NO GROWTH AFTER 4 DAYS Lab Results: 03/09/18 07:30 03/09/18 07:30 Lab Results 03/09/18 07:30: Sodium 143, Chloride 99, Potassium 3.2 L, Carbon Dioxide 40 H, Anion Gap 8 L, BUN 55 H, Creatinine 1.8 H, Est GFR ( Amer) 48, Est GFR ( Non-Af Amer) 40, Random Glucose 79, Calcium 9.7, Total Bilirubin 0.5, AST 39, ALT 33, Alkaline Phosphatase 86, Lactate Dehydrogenase 709 H, Total Creatine Kinase 193, Troponin I 0.06, NT-Pro-B Natriuret Pep 2260 H, Total Protein 7.3, Albumin 3.4, Globulin 3.8, Albumin/Globulin Ratio 0.9 L, Lipase 97 03/09/18 07:30: pO2 33, VBG pH 7.37, VBG pCO2 74.0 H*, VBG HCO3 42.8 H, VBG Total CO2 45.1 H, VBG O2 Sat (Calc) 75.5 H, VBG Base Excess 13.9 H, VBG Potassium 3.2 L, Sodium 143.0, Chloride 105.0, Glucose 79, Lactate 1.0, FiO2 21.0, Venous Blood Potassium 3.2 L 03/09/18 07:30: PT 14.0 H, INR 1.21 H 03/09/18 07:30: WBC 4.5, RBC 3.15 L, Hgb 10.5 L, Hct 30.3 L, MCV 96.2, MCH 33.3 , MCHC 34.7, RDW 12.9, Plt Count 205, MPV 10.2, Gran % 50.4, Lymph % (Auto) 38.5 H, [place]gett % (Auto) 9.8 H, Eos % (Auto) 1.3 L, Baso % (Auto) 0.0, Gran # 2.25 , Lymph # (Auto) 1.7, Daggett # (Auto) 0.4, Eos # (Auto) 0.1, Baso # (Auto) 0.00 I have reviewed the lab results: Yes - RAD Interpretation Radiology Orders: 03/09/18 07:22 ABD & PELVIS PO CONTRAST ONLY [CT] Stat CHEST PORTABLE [RAD] Stat - Medication Orders Current Medication Orders: Discontinued Medications Cholecalciferol (Vitamin D) 1,000 intlu PO DAILY [facility] Last Admin: 03/11/18 11:21 Dose: 1,000 intlu Clonidine HCl (Catapres) 0.1 mg PO BID [facility] Last Admin: 03/11/18 11:23 Dose: 0.1 mg MAR Pulse and Blood Pressure Document 03/11/18 11:23 JW (Rec: 03/11/18 11:23 JW [id number]) Pulse Pulse Rate (60-90) 67 Blood Pressure Blood Pressure (100/60-150/90) 172/91 Clopidogrel Bisulfate (Plavix) 75 mg PO DAILY [facility] Last Admin: 03/11/18 11:20 Dose: 75 mg Colchicine (Colocrys) 0.6 mg PO TID PRN PRN Reason: Pain, Mild (1-3) Docusate Sodium (Colace) 100 mg PO BID [facility] Last Admin: 03/11/18 11:19 Dose: 100 mg Enoxaparin Sodium (Lovenox) 40 mg SC DAILY [facility] PRN Reason: Protocol Last Admin: 03/10/18 09:31 Dose: 40 mg Subcutaneous Administrations Document 03/10/18 09:31 KE (Rec: 03/10/18 09:31 KE [id number]) Charges for Administration # of Subcutaneous Administrations 1 Furosemide (Lasix) 40 mg IVP STAT STA Stop: 03/09/18 12:33 Last Admin: 03/09/18 13:00 Dose: 40 mg MAR Blood Pressure Document 03/09/18 13:00 Ayse (Rec: 03/09/18 13:00 SHAWN [id number]) Blood Pressure Blood Pressure (100/60-150/90) 162/92 IVP Administration Document 03/09/18 13:00 SHAWN (Rec: 03/09/18 13:00 SHAWN [id number]) Charges for Administration # of IVP Administrations 1 Furosemide (Lasix) 40 mg IVP Q12 [facility] Last Admin: 03/10/18 02:10 Dose: Not Given Non-Admin Reason: Patient Refused Furosemide (Lasix) 40 mg PO BID [facility] Last Admin: 03/11/18 11:22 Dose: 40 mg MAR Blood Pressure Document 03/11/18 11:22 JW (Rec: 03/11/18 11:22 JW [id number]) Blood Pressure Blood Pressure (100/60-150/90) 172/91 Furosemide (Lasix) 40 mg IVP Q12 [facility] Furosemide (Lasix) 40 mg IVP 0600,1800 [facility] Last Admin: 03/11/18 06:37 Dose: Not Given Non-Admin Reason: BP Parameters Not Met MAR Blood Pressure Document 03/11/18 06:37 RM (Rec: 03/11/18 06:37 RM [facility] [place]-2AW) Blood Pressure Blood Pressure (100/60-150/90) 107/64 Heparin Sodium (Porcine) (Heparin) 5,000 units SC Q8 [facility] PRN Reason: Protocol Last Admin: 03/11/18 14:17 Dose: Insulin Detemir (Levemir) 70 unit SC BID [facility] Last Admin: 03/11/18 11:20 Dose: 70 unit [facility] Blood Glucose Document 03/11/18 11:20 (Rec: 03/11/18 11:20 [id number]-2AW) Blood Glucose Finger Stick Blood Glucose (70-120) 70 Subcutaneous Administrations Document 03/11/18 11:20 (Rec: 03/11/18 11:20 [facility]-2A) Charges for Administration # of Subcutaneous Administrations 1 Insulin Human Lispro (Humalog Low) 0 units SC ACHS [facility] PRN Reason: Protocol Last Admin: 03/11/18 14:17 Dose: Not Given Non-Admin Reason: Blood Sugar Parameter Insulin Human Lispro (Humalog) 30 units SC AC [facility] Last Admin: 03/11/18 11:07 Dose: Metolazone (Zaroxolyn) 5 mg PO DAILY [facility] Last Admin: 03/11/18 11:21 Dose: 5 mg Metoprolol Succinate (Toprol Xl) 100 mg PO BRK [facility] Last Admin: 03/11/18 11:22 Dose: 100 mg MAR Pulse and Blood Pressure Document 03/11/18 11:22 (Rec: 03/11/18 11:23 [facility]-2AW) Pulse Pulse Rate (60-90) 67 Blood Pressure Blood Pressure (100/60-150/90) 172/91 Multivitamins/Minerals (Therapeutic-M Tab) 1 tab PO 0800 [facility] Last Admin: 03/11/18 11:21 Dose: 1 tab Non-Formulary Medication (Febuxostat [Uloric]) 80 mg PO DAILY [facility] Last Admin: 03/11/18 11:07 Dose: Non-Formulary Medication (Multivit-Min/Fa/Lycopen/Lutein [Centrum Silver Tablet] ) 1 tab PO DAILY [facility] Last Admin: 03/11/18 11:07 Dose: Non-Formulary Medication (Jackson-3/Dha/Epa/Fish Oil [Fish Oil Jackson-3 Softgel]) 1 cap PO DAILY [facility] Last Admin: 03/11/18 11:07 Dose: Pantoprazole Sodium (Protonix Ec Tab) 40 mg PO 0600 [facility] Last Admin: 03/11/18 06:36 Dose: 40 mg Polyethylene Glycol (Miralax) 17 gm PO BID [facility] Last Admin: 03/11/18 11:20 Dose: 17 gm Potassium Chloride (K-Dur 20 Meq Er Tab) 40 meq PO STAT STA Stop: 03/09/18 12:59 Last Admin: 03/09/18 13:04 Dose: 40 meq Potassium Chloride (Klor-Con 10) 10 meq PO DAILY [facility] Last Admin: 03/11/18 11:20 Dose: 10 meq - Scribe Statement The provider has reviewed the documentation as recorded by the William Bernard Provider Scribe Attestation: All medical record entries made by the Maverickibchapis were at my direction and personally dictated by me. I have reviewed the chart and agree that the record accurately reflects my personal performance of the history, physical exam, medical decision making, and the department course for this patient. I have also personally directed, reviewed, and agree with the discharge instructions and disposition. Disposition/Present on Arrival - Present on Arrival Any Indicators Present on Arrival: No History of DVT/PE: No History of Uncontrolled Diabetes: No Urinary Catheter: No History of Decub. Ulcer: No History Surgical Site Infection Following: None - Disposition Have Diagnosis and Disposition been Completed?: Yes Diagnosis: Abdominal pain, CHF (congestive heart failure) Disposition: HOSPITALIZED Disposition Time: 03:00 Patient Plan: Admission Condition: STABLE
[2018-03-09] MEDS ORDERED: Iohexol 240 (50 ml) ONE (07:33)
--- NOTE | 2018-03-09 08:04 | RAD ---
HISTORY: ? CHF COMPARISON: 12/20/2017 FINDINGS: LUNGS: No active pulmonary disease. PLEURA: No significant pleural effusion identified, no pneumothorax apparent. CARDIOVASCULAR: Mild cardiomegaly. Mild vascular congestion OSSEOUS STRUCTURES: No significant abnormalities. VISUALIZED UPPER ABDOMEN: Normal. OTHER FINDINGS: None. IMPRESSION: Mild cardiomegaly. Mild vascular congestion
[2018-03-09 08:07] LABS: VENOUS BLOOD GAS BASE EXCESS 13.9 mmol/L (0.0-2.0); VENOUS BLOOD GAS PO2 33 mm/Hg (30-55); VENOUS BLOOD PH 7.37 (7.32-7.43)
[2018-03-09 08:11] LABS: EOS # 0.1 (0.0-0.7); EOS % 1.3 % (1.5-5.0); GRAN # 2.25 (1.4-6.5); GRAN % 50.4 % (50.0-68.0); HEMOGLOBIN 10.5 g/dL (14.0-18.0); LYMPH # 1.7 (1.2-3.4); LYMPH % 38.5 % (22.0-35.0); MEAN CELL VOLUME 96.2 fl (80.0-105.0); MEAN CORPUSCULAR HEMOGLOBIN 33.3 pg (25.0-35.0); MEAN CORPUSCULAR HGB CONC 34.7 g/dl (31.0-37.0); MEAN PLATELET VOLUME 10.2 fl (7.0-11.0); MONO # 0.4 (0.1-0.6); MONO % 9.8 % (1.0-6.0); RBC 3.15 10^6/uL (3.5-6.1); RED CELL DISTRIBUTION WIDTH 12.9 % (11.5-14.5); WHITE BLOOD COUNT 4.5 10^3/ul (4.5-11.0)
[2018-03-09 08:16] LABS: ALB/GLOB RATIO 0.9 (1.1-1.8); ALBUMIN 3.4 g/dL (3.0-4.8); CALCIUM 9.7 mg/dL (8.4-10.5)
[2018-03-09 08:19] LABS: INR 1.21 (0.93-1.08)
[2018-03-09 08:27] LABS: TROPONIN I 0.06 ng/mL
--- NOTE | 2018-03-09 09:28 | CP.PCM.CON ---
History of Present Illness - History of Present Illness History of Present Illness: Surgery Consult 49 yo man with PMHx CHF, CAD, DM, KENDALL, and gout, presents with complaints of abdominal discomfort and distension for 3 months. The pt states that he has developed R-sided abdominal distension and discomfort over the course of three months. It has gotten progressively worse. he describes some pressure and aching when he lies on his R side. There is some associated pain in his R inguinal region. He endorses some constipation and stool changes starting 3 mos ago as well. His stools are light-colored, yellow, and associated with some constipation and tenesmus. He has had fatigue and a poor appetite for 3 months. Denies hematemesis, nausea, vomiting, diarrhea, hematochezia, fever, chest pain. Denies h/o abd surgery. Pt take plavix for h/o cardiac stent. Pt reports drinking a bottle of liquor every weekend. Last colonoscopy was in [address] King and significant for two polyps. EGD also at that time demonstrated mild gastritis, after which pt was started on PPI. PMHx: CAD s/p stent placement, CAD, DM, KENDALL (not on CPAP), gout, osteoarthritis. Last Echo was Nov 2017. Last colonoscopy and EGD 2016. ALL: aspirin PSHx: R knee arthroplasty, L temporal a. bx (negative) FHx: father when pt was very young from cancer (unknown), mother has DM, sister has DM Meds: as per record. Pt takes Plavix and Lasix. Very rare NSAID/Tylenol use. Uses lidoderm patches for arthritis pain. Soc: drinks socially Fri through Sun (1 bottle of [employer]), no smoking or other drugs. Has not had alcohol in last 2 weeks. 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 Review of Systems - Constitutional Constitutional: Anorexia, Daytime Sleepiness, Fatigue, Weight Gain. absent: Chills, Excessive Sweating, Fever, Increased Appetite, Weight Loss - Cardiovascular Cardiovascular: Leg Edema. absent: Chest Pain, Dyspnea - Respiratory Respiratory: absent: Cough, Dyspnea - Gastrointestinal Gastrointestinal: Abdominal Pain, Bloating, Change in Bowel Habits, Constipation , Temesmus. absent: Diarrhea, Hematochezia, Melena, Nausea, Vomiting - Genitourinary Genitourinary: absent: Difficulty Urinating, Dysuria, Flank Pain, Urinary Frequency Past Patient History - Infectious Disease Hx of Infectious Diseases: None - Tetanus Immunizations Tetanus Immunization: Unknown - Past Medical History & Family History Past Medical History?: Yes - Past Social History Smoking Status: Never Smoked - CARDIAC Hx Cardiac Disorders: Yes Hx Hypertension: Yes - PULMONARY Hx Respiratory Disorders: No - NEUROLOGICAL Hx Neurological Disorder: No - HEENT Hx HEENT Problems: No - RENAL Hx Chronic Kidney Disease: No - ENDOCRINE/METABOLIC Hx Endocrine Disorders: Yes Hx Diabetes Mellitus Type 2: Yes - HEMATOLOGICAL/ONCOLOGICAL Hx Blood Disorders: No - INTEGUMENTARY Hx Dermatological Problems: No - MUSCULOSKELETAL/RHEUMATOLOGICAL Hx Musculoskeletal Disorders: Yes Hx Arthritis: Yes Hx Falls: No - GASTROINTESTINAL Hx Gastrointestinal Disorders: No - GENITOURINARY/GYNECOLOGICAL Hx Genitourinary Disorders: No - PSYCHIATRIC Hx Psychophysiologic Disorder: No Hx Substance Use: No - SURGICAL HISTORY Hx Coronary Stent: Yes Other/Comment: Right knee replacement - ANESTHESIA Hx Anesthesia Reactions: No Hx Malignant Hyperthermia: No Meds Allergies/Adverse Reactions: Allergies Allergy/AdvReac Type Severity Reaction Status Date / Time aspirin Allergy ANAPHYLAXIS Verified 12/20/17 15:35 Physical Exam - Constitutional Appears: No Acute Distress - Head Exam Head Exam: ATRAUMATIC, NORMAL INSPECTION, NORMOCEPHALIC - Eye Exam Eye Exam: Normal appearance, PERRL. absent: Scleral icterus Additional comments: No conjunctival palor - ENT Exam ENT Exam: Mucous Membranes Moist Additional comments: No sublingual jaundice. - Neck Exam Neck exam: Positive for: Normal Inspection. Negative for: Lymphadenopathy - Respiratory Exam Respiratory Exam: Clear to Auscultation Bilateral, NORMAL BREATHING PATTERN - Cardiovascular Exam Cardiovascular Exam: REGULAR RHYTHM, Systolic Murmur Additional comments: 3/6 systolic ejection murmur. - GI/Abdominal Exam Additional comments: Obese abdomen with striae. Abdomen is distended and asymmetrical, with umbilicus is L of midline. Absent bowel sounds over R abdomen. Bowel sounds present over L abdomen. No fluid wave. Abdomen soft, nontender, nondistended. No focal tenderness to palpation. No masses or abdominal wall defects noted. No splinting. Spleen and liver not palpable. - Rectal Exam Rectal Exam: NORMAL INSPECTION. absent: Black Stool, Bloody Stool, Hemorrhoids , Fecal Impaction Additional comments: No hemorrhoids or mass palpated. - Extremities Exam Additional comments: 2+ pitting edema over LEs bilaterally to the level of the knee. Compression hose in place. - Neurological Exam Neurological exam: Alert, Oriented x3 - Psychiatric Exam Psychiatric exam: Normal Affect, Normal Mood - Skin Skin Exam: Dry, Intact, Normal Color, Warm Results - Vital Signs Recent Vital Signs: Last Vital Signs Temp 98.2 F 03/09/18 06:59 Pulse 68 03/09/18 06:59 Resp 18 03/09/18 06:59 BP 158/91 H 03/09/18 06:59 Pulse Ox 96 03/09/18 06:59 - Labs Result Diagrams: 03/09/18 07:30 03/09/18 07:30 Labs: Laboratory Results - last 24 hr 03/09/18 03/09/18 03/09/18 07:30 07:30 07:30 WBC 4.5 RBC 3.15 L Hgb 10.5 L Hct 30.3 L MCV 96.2 MCH 33.3 MCHC 34.7 RDW 12.9 Plt Count 205 MPV 10.2 Gran % 50.4 Lymph % (Auto) 38.5 H Sherman % (Auto) 9.8 H Eos % (Auto) 1.3 L Baso % (Auto) 0.0 Gran # 2.25 Lymph # (Auto) 1.7 Sherman # (Auto) 0.4 Eos # (Auto) 0.1 Baso # (Auto) 0.00 PT 14.0 H INR 1.21 H pO2 33 VBG pH 7.37 VBG pCO2 74.0 H* VBG HCO3 42.8 H VBG Total CO2 45.1 H VBG O2 Sat (Calc) 75.5 H VBG Base Excess 13.9 H VBG Potassium 3.2 L Sodium 143.0 Chloride 105.0 Glucose 79 Lactate 1.0 FiO2 21.0 Potassium Carbon Dioxide Anion Gap BUN Creatinine Est GFR ( Amer) Est GFR (Non-Af Amer) Random Glucose Calcium Total Bilirubin AST ALT Alkaline Phosphatase Lactate Dehydrogenase Total Creatine Kinase Troponin I NT-Pro-B Natriuret Pep Total Protein Albumin Globulin Albumin/Globulin Ratio Lipase Venous Blood Potassium 3.2 L 03/09/18 07:30 WBC RBC Hgb Hct MCV MCH MCHC RDW Plt Count MPV Gran % Lymph % (Auto) Sherman % (Auto) Eos % (Auto) Baso % (Auto) Gran # Lymph # (Auto) Sherman # (Auto) Eos # (Auto) Baso # (Auto) PT INR pO2 VBG pH VBG pCO2 VBG HCO3 VBG Total CO2 VBG O2 Sat (Calc) VBG Base Excess VBG Potassium Sodium 143 Chloride 99 Glucose Lactate FiO2 Potassium 3.2 L Carbon Dioxide 40 H Anion Gap 8 L BUN 55 H Creatinine 1.8 H Est GFR ( Amer) 48 Est GFR (Non-Af Amer) 40 Random Glucose 79 Calcium 9.7 Total Bilirubin 0.5 AST 39 ALT 33 Alkaline Phosphatase 86 Lactate Dehydrogenase 709 H Total Creatine Kinase 193 Troponin I 0.06 NT-Pro-B Natriuret Pep 2260 H Total Protein 7.3 Albumin 3.4 Globulin 3.8 Albumin/Globulin Ratio 0.9 L Lipase 97 Venous Blood Potassium Assessment & Plan - Assessment and Plan (Free Text) Assessment: 52 yo man w PMHx CAD and DM presents with 3 month hx of R-sided abdominal pain, acholic stools, constipation, fatigue, and reduced appetite in setting of acute kidney injury, leg swelling, and hypokalemia. Symptoms possibly related to chronic constipation and swelling 2/2 CHF. No jaundice, fluid wave, or elevation of LFTs suggestive of liver etiology. No abdominal wall defect or findings suggesting ventral hernia. Recent screening colonoscopy and EGD revealed no malignancy. CT shows no acute findings. Plan: NO acute surgical intervention at this time Surgical Attending to see today REgular diet Cardiac elijah Herbert
--- NOTE | 2018-03-09 11:21 | CT ---
PROCEDURE: CT Abdomen and Pelvis without intravenous contrast HISTORY: Right Sided Abdominal Pain COMPARISON: None. TECHNIQUE: Without contrast. Contrast Dose: Radiation dose: Total exam DLP = Total exam DLP = 1083 mGy-cm. This CT exam was performed using one or more of the following dose reduction techniques: Automated exposure control, adjustment of the mA and/or kV according to patient size, and/or use of iterative reconstruction technique. FINDINGS: LOWER THORAX: Unremarkable. LIVER: Unremarkable. No gross lesion or ductal dilatation. GALLBLADDER AND BILE DUCTS: Unremarkable. PANCREAS: Unremarkable. No gross lesion or ductal dilatation. SPLEEN: Unremarkable. ADRENALS: Unremarkable. No mass. KIDNEYS AND URETERS: Unremarkable. No hydronephrosis. No solid mass. VASCULATURE: Unremarkable. No aortic aneurysm. BOWEL: Unremarkable. No obstruction. No gross mural thickening. APPENDIX: Unremarkable. Normal appendix. PERITONEUM: Unremarkable. No free fluid. No free air. LYMPH NODES: Unremarkable. No enlarged lymph nodes. Mildly enlarged inguinal lymph nodes BLADDER: Unremarkable. REPRODUCTIVE: Unremarkable. BONES: No acute fracture. OTHER FINDINGS: None. IMPRESSION: No acute intra-abdominal findings
[2018-03-09] MEDS ORDERED: Potassium Chloride 20 mEq ER Tab PO STA (12:58)
--- NOTE | 2018-03-09 13:27 | CP.PCM.HP ---
<Sri Cuellar - Last Filed: 03/09/18 14:58> History of Present Illness - History of Present Illness History of Present Illness: This patient is a 52 year old male with a PMHx of CHF, CKD (Stage III), recurrent UTI's, CAD s/p stent placement, DM, KENDALL (not on CPAP), gout and osteoarthritis. Patient was sent by his Supervisor [employer] (Dr. Spring) for evaluation of right lateral pain/discomfort. Patient states he has had these symptoms since November. He is unable to describe the quality of the pain but rates it a 8.5-9/10 and states that it is non-radiating. The pain is worsened by torso sidebending and hip flexion. It is also worsened with laying on the right side. Patient does complain of being constipated. Patient last bowel movement was yesterday which he describes as normal in consistency but light in color. He denies any urinary symptoms. Patient also complains of dyspnea on exertion which he states has been getting progressively worse since November of this year. He also states his b/l leg edema has also been getting progressively worse. He is compliant with his medications but not his CPAP. ROS: Positives: R-sided abdominal distension, swelling, pain and discomfort. Right lateral torso pain, fatigue, reduced appetite, 2-pillow orthopnea, dyspnea on exertion. Negatives: Fever, chills, chest pain, palpitations, nausea, vomiting, diarrhea, urinary symptoms, CVA tenderness. PMHx: CAD s/p stent placement, CAD, DM, KENDALL (not on CPAP), gout, osteoarthritis. Last Echo was Nov 2017. Last colonoscopy and EGD 2016. ALL: aspirin PSHx: R knee arthroplasty, L temporal a. bx (negative) FHx: father when pt was very young from cancer (unknown), mother has DM, sister has DM Meds: Reviewed Soc: drinks socially Fri through Sun (1 bottle of [employer]), no smoking or other drugs. Has not had alcohol in last 2 weeks. 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 PMD: Dr. Falcon Supervisor [employer]: Dr. Spring. Present on Admission - Present on Admission Any Indicators Present on Admission: No Review of Systems - Review of Systems All systems: reviewed and no additional remarkable complaints except Review of Systems: As per HPI Past Patient History - Infectious Disease Hx of Infectious Diseases: None - Tetanus Immunizations Tetanus Immunization: Unknown - Past Medical History & Family History Past Medical History?: Yes - Past Social History Smoking Status: Never Smoked - CARDIAC Hx Cardiac Disorders: Yes Hx Hypertension: Yes - PULMONARY Hx Respiratory Disorders: No - NEUROLOGICAL Hx Neurological Disorder: No - HEENT Hx HEENT Problems: No - RENAL Hx Chronic Kidney Disease: No - ENDOCRINE/METABOLIC Hx Endocrine Disorders: Yes Hx Diabetes Mellitus Type 2: Yes - HEMATOLOGICAL/ONCOLOGICAL Hx Blood Disorders: No - INTEGUMENTARY Hx Dermatological Problems: No - MUSCULOSKELETAL/RHEUMATOLOGICAL Hx Musculoskeletal Disorders: Yes Hx Arthritis: Yes Hx Falls: No - GASTROINTESTINAL Hx Gastrointestinal Disorders: No - GENITOURINARY/GYNECOLOGICAL Hx Genitourinary Disorders: No - PSYCHIATRIC Hx Psychophysiologic Disorder: No Hx Substance Use: No - SURGICAL HISTORY Hx Coronary Stent: Yes Other/Comment: Right knee replacement - ANESTHESIA Hx Anesthesia Reactions: No Hx Malignant Hyperthermia: No Meds Allergies/Adverse Reactions: Allergies Allergy/AdvReac Type Severity Reaction Status Date / Time aspirin Allergy ANAPHYLAXIS Verified 12/20/17 15:35 Physical Exam - Constitutional Appears: Non-toxic, No Acute Distress - Head Exam Head Exam: ATRAUMATIC, NORMAL INSPECTION, NORMOCEPHALIC - Eye Exam Eye Exam: EOMI, Normal appearance - ENT Exam ENT Exam: Mucous Membranes Moist - Neck Exam Neck exam: Positive for: Normal Inspection - Respiratory Exam Respiratory Exam: Decreased Breath Sounds, Clear to Auscultation Bilateral. absent: Rales Additional comments: Conversational dyspnea - Cardiovascular Exam Cardiovascular Exam: RRR, +S1, +S2. absent: Diastolic murmur, Systolic Murmur Additional comments: faint heart sounds (likely due to body habitus) - GI/Abdominal Exam GI & Abdominal Exam: Distended, Firm, Hypoactive Bowel Sounds, Tenderness (RUQ/ RLQ). absent: Bruit, Guarding, Hernia, Organomegaly, Pulsatile Mass (R>L ), Rebound Additional comments: Obese abdomen with striae. Abdomen is distended and asymmetrical, with umbilicus is L of midline. No fluid wave. Abdomen soft, nontender, nondistended. No masses or abdominal wall defects noted. No splinting. Spleen and liver not palpable. - Extremities Exam Extremities exam: Positive for: pedal edema (+2 B/L ) - Back Exam Back exam: absent: CVA tenderness (L), CVA tenderness (R) - Neurological Exam Neurological exam: Alert, Oriented x3 - Psychiatric Exam Psychiatric exam: Normal Affect, Normal Mood - Skin Skin Exam: Dry, Intact, Normal Color, Warm Results - Vital Signs Recent Vital Signs: Last Vital Signs Temp 97.7 F 03/09/18 11:14 Pulse 68 03/09/18 11:14 Resp 18 03/09/18 11:14 BP 162/92 H 03/09/18 13:00 Pulse Ox 98 03/09/18 11:14 - Labs Result Diagrams: 03/09/18 07:30 03/09/18 07:30 - EKG Data EKG shows normal: Sinus rhythm Rate: Normal Assessment & Plan - Assessment and Plan (Free Text) Assessment: 52 year old male with a PMHx of CHF, CKD (Stage III), recurrent UTI's, CAD s/p stent placement, DM, KENDALL (not on CPAP), gout and osteoarthritis presents for evaluation and treatment of of Right sided abdominal/torso pain/discomfort. Patient also found to be in CHF exacerbation with elevated BNP, mild pulmonary congestion, and b/l leg edema. Plan: Right Torso/Abdominal Pain/Discomfort Colonoscopy 2017 - two polyps EGD 2017 - Mild Gastritis DDx: Constipation 2/2 to diabetic gastroparesis vs fat distribution vs mixed presentation CT Abd/Pelvis (Adm): NEGATIVE for any acute intraadboinal pathology. On review mild ascites and mild pericardial effusion cannot be ruled out. Miralax 17 BID Colace 100 BID Consider GI Consult. CHF Exacerbation : Revieved Stat dose of Lasix 40 IV in ED ECHO (11/2017): EF-50%, LVH, mild hypokenisis, mild dilated LA/RA, mild TR, Mod. Pulm HTN. Stress Test (11/2017) - Normal Patient states he has been compliant with his Lasix 40 BID We will start Lasix 40 IV BID while monitoring kidney function. Hypokalemia Potassium 3.2 on Admission Replaced with 40meQ KCL in ED Proteinuria Urine Cr Urine Alb Consider Nephro Consult. Hx of CAD Cont. Home Meds Home Plavix 75 Hx of CKD (Stage III) Cr 1.8 on Admission Continue home Meds: Vitamin D 1000 Daily Febuxostat Uloric (Not in formulary) Hx of HTN Home Nebivolol (Not in formulary) Replace with 100mg Toprol Daily Metolazone 5mg PO Daily Clonidine HCL 0.1mg BID DANNY Hx of Diabetes Home meds not in formulary Start: Levemir 70 BID, Humalog 30 USC AC, Low ISS Hx of Gout Colchicine PRN DVT Proph: Lovenox 40mg GI Proph: Protonix 40 Daily Multivitamins/Multiminerals Patient discussed with Attending Sri Cuellar - PGY1 <Viola Bolton B - Last Filed: 03/11/18 15:58> Results - Vital Signs Recent Vital Signs: Last Vital Signs Temp 97.9 F 03/11/18 00:01 Pulse 67 03/11/18 11:23 Resp 18 03/11/18 06:00 BP 172/91 H 03/11/18 11:23 Pulse Ox 94 L 03/11/18 06:00 - Labs Result Diagrams: 03/11/18 06:00 03/11/18 06:00 Labs: Laboratory Results - last 24 hr 03/10/18 03/11/18 03/11/18 21:09 06:00 06:00 WBC 4.5 RBC 3.18 L Hgb 10.3 L Hct 30.5 L MCV 95.9 MCH 32.4 MCHC 33.8 RDW 12.7 Plt Count 206 MPV 10.4 Gran % 44.3 L Lymph % (Auto) 41.0 H Henderson % (Auto) 12.9 H Eos % (Auto) 1.6 Baso % (Auto) 0.2 Gran # 2.00 Lymph # (Auto) 1.9 Henderson # (Auto) 0.6 Eos # (Auto) 0.1 Baso # (Auto) 0.01 Sodium 139 Potassium 4.0 Chloride 95 L Carbon Dioxide 39 H Anion Gap 9 L BUN 54 H Creatinine 1.7 H Est GFR ( Amer) 51 Est GFR (Non-Af Amer) 42 POC Glucose (mg/dL) 121 H Random Glucose 71 Calcium 8.7 Total Bilirubin 0.9 AST 45 ALT 27 Alkaline Phosphatase 65 Total Protein 7.0 Albumin 3.2 Globulin 3.9 Albumin/Globulin Ratio 0.8 L 03/11/18 03/11/18 09:04 12:04 WBC RBC Hgb Hct MCV MCH MCHC RDW Plt Count MPV Gran % Lymph % (Auto) Henderson % (Auto) Eos % (Auto) Baso % (Auto) Gran # Lymph # (Auto) Henderson # (Auto) Eos # (Auto) Baso # (Auto) Sodium Potassium Chloride Carbon Dioxide Anion Gap BUN Creatinine Est GFR ( Amer) Est GFR (Non-Af Amer) POC Glucose (mg/dL) 214 H 155 H Random Glucose Calcium Total Bilirubin AST ALT Alkaline Phosphatase Total Protein Albumin Globulin Albumin/Globulin Ratio Attending/Attestation - Attestation I have personally seen and examined this patient.: Yes I have fully participated in the care of the patient.: Yes I have reviewed all pertinent clinical information: Yes Notes (Text): I have seen and examined the patient at bedside. Agree with the above note dictated by the resident. Vitals, labs and imaging reviewed personally by me. Discussed the plan in detail with the patient and the resident. All questions answered. Upon discharge patient will follow up with Dr Trent. Dr Viola Bolton
[2018-03-09 15:08] LABS: URINE BILIRUBIN NEGATIVE (NEGATIVE); URINE BLOOD SMALL (NEGATIVE); URINE GLUCOSE (UA) NEGATIVE (NEGATIVE); URINE LEUKOCYTE ESTERASE NEGATIVE Leu/uL (NEGATIVE); URINE PROTEIN 100 mg/dL (<30 mg/dL); URINE UROBILINOGEN 0.2 E.U./dL (<1 E.U./dL)
[2018-03-09 15:09] LABS: URINE APPEARANCE CLEAR (CLEAR); URINE COLOR YELLOW (YELLOW)
[2018-03-09 15:17] LABS: URINE BACTERIA NEG (NEG); URINE EPITHELIAL CELLS 0 - 2 /hpf (0-5); URINE WBC 0 - 2 /hpf (0-6)
[2018-03-09] MEDS ORDERED: Pneumococcal 23-Valent Vaccine IM ONE (16:31)
--- NOTE | 2018-03-09 16:37 | CARD ---
APPROVED REPORT EKG Measurement Heart [id number] <Conclusion> Normal sinus rhythm PRWP NSSTW changes Prolonged QTc Artifact present.
[2018-03-09] MEDS: Insulin Lispro (humaLOG) LOW Coverage SC SCH ×2 (17:30→22:07)
[2018-03-09] MEDS: Insulin Lispro 1 UNITS/0.01 ML SC SCH (17:30)
[2018-03-09] MEDS: Insulin Detemir 100 units/ml Vial (Levemir) SC SCH (17:39)
[2018-03-09] MEDS: POLYETHYLENE GLYCOL 3350 17 GM/Dose PACKET PO SCH (17:51)
[2018-03-09] MEDS ORDERED: INSULIN DETEMIR 70 UNIT SC SCH (18:00)
[2018-03-09 20:28] LABS: CREATININE,RANDOM URINE 53 mg/dL; TOTAL PROTEIN,RANDOM URINE 340 mg/L
[2018-03-10] MEDS: Pantoprazole 40 mg EC Tab PO SCH (05:17)
[2018-03-10 07:00] LABS: BASO # 0.02 K/mm3 (0.0-2.0); BASO % 0.4 % (0.0-3.0); EOS # 0.1 (0.0-0.7); EOS % 1.3 % (1.5-5.0); GRAN # 1.99 (1.4-6.5); GRAN % 44.5 % (50.0-68.0); HEMOGLOBIN 10.9 g/dL (14.0-18.0); MEAN CELL VOLUME 96.4 fl (80.0-105.0); MEAN CORPUSCULAR HEMOGLOBIN 32.5 pg (25.0-35.0); MEAN CORPUSCULAR HGB CONC 33.7 g/dl (31.0-37.0); MEAN PLATELET VOLUME 10.4 fl (7.0-11.0); MONO # 0.4 (0.1-0.6); MONO % 9.8 % (1.0-6.0); RBC 3.35 10^6/uL (3.5-6.1); RED CELL DISTRIBUTION WIDTH 12.9 % (11.5-14.5); WHITE BLOOD COUNT 4.5 10^3/ul (4.5-11.0)
[2018-03-10 07:01] LABS: ALB/GLOB RATIO 0.9 (1.1-1.8); ALBUMIN 3.5 g/dL (3.0-4.8); CALCIUM 9.6 mg/dL (8.4-10.5)
[2018-03-10] MEDS: Insulin Lispro (humaLOG) LOW Coverage SC SCH ×4 (07:44→22:13)
--- NOTE | 2018-03-10 07:44 | CP.PCM.PN ---
<ElanaNampa - Last Filed: 03/10/18 07:51> Subjective - Date & Time of Evaluation Date of Evaluation: 03/10/18 Time of Evaluation: 07:42 - Subjective Subjective: Surgery Progress Note Patient seen and examined at bedside. Per nursing no acute events occurred overnight. Patient continues to reports some abdominal discomfort. Patient denies any chest pain, shortness of breath, fevers, chills, nausea, vomiting, syncopal episodes, or any other complaints. Objective - Vital Signs/Intake and Output Vital Signs (last 24 hours): Temp Pulse Resp BP Pulse Ox 97.6 F 68 20 153/78 H 96 03/10/18 06:00 03/10/18 06:00 03/10/18 06:00 03/10/18 06:00 03/10/18 06:00 Intake and Output: 03/10/18 03/10/18 06:59 18:59 Intake Total 480 Output Total 1000 Balance -520 - Medications Medications: Current Medications Cholecalciferol (Vitamin D) 1,000 intlu PO DAILY [facility] Clonidine HCl (Catapres) 0.1 mg PO BID [facility] Last Admin: 03/09/18 17:50 Dose: 0.1 mg Clopidogrel Bisulfate (Plavix) 75 mg PO DAILY [facility] Colchicine (Colocrys) 0.6 mg PO TID PRN PRN Reason: Pain, Mild (1-3) Docusate Sodium (Colace) 100 mg PO BID [facility] Last Admin: 03/09/18 17:50 Dose: 100 mg Enoxaparin Sodium (Lovenox) 40 mg SC DAILY [facility] PRN Reason: Protocol Furosemide (Lasix) 40 mg PO BID [facility] Furosemide (Lasix) 40 mg IVP 0600,1800 [facility] Last Admin: 03/10/18 05:17 Dose: 40 mg Insulin Detemir (Levemir) 70 unit SC BID [facility] Last Admin: 03/09/18 17:39 Dose: Not Given Insulin Human Lispro (Humalog Low) 0 units SC ACHS [facility] PRN Reason: Protocol Last Admin: 03/09/18 22:07 Dose: Not Given Insulin Human Lispro (Humalog) 30 units SC AC [facility] Last Admin: 03/09/18 17:30 Dose: Not Given Metolazone (Zaroxolyn) 5 mg PO DAILY [facility] Metoprolol Succinate (Toprol Xl) 100 mg PO BRK [facility] Multivitamins/Minerals (Therapeutic-M Tab) 1 tab PO 0800 [facility] Non-Formulary Medication (Febuxostat [Uloric]) 80 mg PO DAILY [facility] Non-Formulary Medication (Multivit-Min/Fa/Lycopen/Lutein [Centrum Silver Tablet] ) 1 tab PO DAILY [facility] Non-Formulary Medication ([place]-3/Dha/Epa/Fish Oil [Fish Oil [place]-3 Softgel]) 1 cap PO DAILY [facility] Pantoprazole Sodium (Protonix Ec Tab) 40 mg PO 0600 [facility] Last Admin: 03/10/18 05:17 Dose: 40 mg Polyethylene Glycol (Miralax) 17 gm PO BID [facility] Last Admin: 03/09/18 17:51 Dose: 17 gm Potassium Chloride (Klor-Con 10) 10 meq PO DAILY [facility] - Labs Labs: 03/10/18 06:00 03/10/18 06:00 PT 14.0 SECONDS (9.4-12.5) H 03/09/18 07:30 INR 1.21 (0.93-1.08) H 03/09/18 07:30 - Head Exam Head Exam: ATRAUMATIC, NORMAL INSPECTION, NORMOCEPHALIC - Eye Exam Eye Exam: EOMI, Normal appearance - ENT Exam ENT Exam: Mucous Membranes Moist - Respiratory Exam Respiratory Exam: Clear to Ausculation Bilateral, NORMAL BREATHING PATTERN - Cardiovascular Exam Cardiovascular Exam: REGULAR RHYTHM - GI/Abdominal Exam GI & Abdominal Exam: Distended, Normal Bowel Sounds. absent: Firm, Guarding - Extremities Exam Extremities Exam: Full ROM, Pedal Edema. absent: Joint Swelling - Back Exam Back Exam: absent: CVA tenderness (R), paraspinal tenderness - Neurological Exam Neurological Exam: Alert, Awake - Psychiatric Exam Psychiatric exam: Normal Affect, Normal Mood - Skin Skin Exam: Dry, Intact Assessment and Plan - Assessment and Plan (Free Text) Assessment: 52 yo man w PMHx CAD and DM presents with 3 month hx of R-sided abdominal pain, acholic stools, constipation, fatigue, and reduced appetite in setting of acute kidney injury, leg swelling, and hypokalemia. Plan: -Ab/ct negative. Upon review, possible ascites cannot be ruled out -Continue Miralax -Continue Colace -Will discuss with Dr. Herbert <Analilia Narayanan - Last Filed: 03/10/18 08:47> Objective - Vital Signs/Intake and Output Vital Signs (last 24 hours): Temp Pulse Resp BP Pulse Ox 97.6 F 69 20 153/78 H 96 03/10/18 06:00 03/10/18 08:03 03/10/18 06:00 03/10/18 08:03 03/10/18 06:00 Intake and Output: 03/10/18 03/10/18 06:59 18:59 Intake Total 480 Output Total 1000 Balance -520 - Medications Medications: Current Medications Cholecalciferol (Vitamin D) 1,000 intlu PO DAILY [facility] Clonidine HCl (Catapres) 0.1 mg PO BID [facility] Last Admin: 03/09/18 17:50 Dose: 0.1 mg Clopidogrel Bisulfate (Plavix) 75 mg PO DAILY [facility] Colchicine (Colocrys) 0.6 mg PO TID PRN PRN Reason: Pain, Mild (1-3) Docusate Sodium (Colace) 100 mg PO BID [facility] Last Admin: 03/09/18 17:50 Dose: 100 mg Enoxaparin Sodium (Lovenox) 40 mg SC DAILY [facility] PRN Reason: Protocol Furosemide (Lasix) 40 mg PO BID [facility] Furosemide (Lasix) 40 mg IVP 0600,1800 [facility] Last Admin: 03/10/18 05:17 Dose: 40 mg Insulin Detemir (Levemir) 70 unit SC BID [facility] Last Admin: 03/09/18 17:39 Dose: Not Given Insulin Human Lispro (Humalog Low) 0 units SC ACHS [facility] PRN Reason: Protocol Last Admin: 03/10/18 07:44 Dose: Not Given Insulin Human Lispro (Humalog) 30 units SC AC [facility] Last Admin: 03/10/18 08:04 Dose: 30 units Metolazone (Zaroxolyn) 5 mg PO DAILY [facility] Metoprolol Succinate (Toprol Xl) 100 mg PO BRK [facility] Last Admin: 03/10/18 08:03 Dose: 100 mg Multivitamins/Minerals (Therapeutic-M Tab) 1 tab PO 0800 [facility] Last Admin: 03/10/18 08:04 Dose: 1 tab Non-Formulary Medication (Febuxostat [Uloric]) 80 mg PO DAILY [facility] Non-Formulary Medication (Multivit-Min/Fa/Lycopen/Lutein [Centrum Silver Tablet] ) 1 tab PO DAILY [facility] Non-Formulary Medication ([place]-3/Dha/Epa/Fish Oil [Fish Oil [place]-3 Softgel]) 1 cap PO DAILY [facility] Pantoprazole Sodium (Protonix Ec Tab) 40 mg PO 0600 [facility] Last Admin: 03/10/18 05:17 Dose: 40 mg Polyethylene Glycol (Miralax) 17 gm PO BID [facility] Last Admin: 03/09/18 17:51 Dose: 17 gm Potassium Chloride (Klor-Con 10) 10 meq PO DAILY [facility] - Labs Labs: 03/10/18 06:00 03/10/18 06:00 PT 14.0 SECONDS (9.4-12.5) H 03/09/18 07:30 INR 1.21 (0.93-1.08) H 03/09/18 07:30 Assessment and Plan - Assessment and Plan (Free Text) Plan: CT: no acute findings. -No emergent surgical intervention needed at this time. -Abdominal wall swelling possibly 2/2 fluid retention 2/2 CHF -Recommend weight loss and exercise -We will sign off. VIRIDIANA Herbert
[2018-03-10] MEDS: Metoprolol Succinate 100 mg XL Tab PO SCH (08:03)
[2018-03-10] MEDS: Multivitamin With Minerals Tab PO SCH (08:04)
[2018-03-10] MEDS: Insulin Lispro 1 UNITS/0.01 ML SC SCH ×3 (08:04→16:34)
[2018-03-10] MEDS: metOLazone 5 MG TAB PO SCH (09:30)
[2018-03-10] MEDS: Cholecalciferol 1,000 INTLU TAB PO SCH (09:30)
[2018-03-10] MEDS: Potassium Chloride 10 mEq ER Tab PO SCH (09:30)
[2018-03-10] MEDS: POLYETHYLENE GLYCOL 3350 17 GM/Dose PACKET PO SCH ×2 (09:31→17:22)
[2018-03-10] MEDS: Insulin Detemir 100 units/ml Vial (Levemir) SC SCH ×2 (09:31→17:22)
[2018-03-10] MEDS: Non Formulary Medication (Multivit-Min/Fa/Lycopen/Lutein [Centrum Silver Tablet] 1 TAB) PO SCH (09:34)
[2018-03-10] MEDS: DHA PO SCH (09:35)
[2018-03-10] MEDS: EPA PO SCH (09:35)
[2018-03-10] MEDS: FISH OIL PO SCH (09:35)
[2018-03-10] MEDS: OMEGA PO SCH (09:35)
[2018-03-10] MEDS ORDERED: Enoxaparin 40 mg Syringe SC SCH (10:00)
[2018-03-10] MEDS ORDERED: Non Formulary Medication (Cholecalciferol (Vitamin D3) [Vitamin D3] 1,000 UNIT) PO SCH (10:00)
--- NOTE | 2018-03-10 15:55 | CP.PCM.PN ---
<Thomas Sim - Last Filed: 03/10/18 15:45> Subjective - Date & Time of Evaluation Date of Evaluation: 03/10/18 Time of Evaluation: 09:30 - Subjective Subjective: IM Progress Note for Hospitalist Service Patient seen and examined at bedside. No acute issues overnight. Reports still has discomfort associated with abdominal fullness/sensation of fluid. Denies nausea, emesis, chest pain, shortness of breath at rest. Does report last BM was yesterday morning (03/09/18). Still making copious urine with BID Lasix. Objective - Vital Signs/Intake and Output Vital Signs (last 24 hours): Temp Pulse Resp BP Pulse Ox 98 F 61 18 158/79 H 96 03/10/18 12:00 03/10/18 12:00 03/10/18 12:00 03/10/18 12:00 03/10/18 06:00 Intake and Output: 03/10/18 03/10/18 06:59 18:59 Intake Total 480 840 Output Total 1000 Balance -520 840 - Medications Medications: Current Medications Cholecalciferol (Vitamin D) 1,000 intlu PO DAILY [facility] Last Admin: 03/10/18 09:30 Dose: 1,000 intlu Clonidine HCl (Catapres) 0.1 mg PO BID [facility] Last Admin: 03/10/18 09:30 Dose: 0.1 mg Clopidogrel Bisulfate (Plavix) 75 mg PO DAILY [facility] Last Admin: 03/10/18 09:30 Dose: 75 mg Colchicine (Colocrys) 0.6 mg PO TID PRN PRN Reason: Pain, Mild (1-3) Docusate Sodium (Colace) 100 mg PO BID [facility] Last Admin: 03/10/18 09:30 Dose: 100 mg Enoxaparin Sodium (Lovenox) 40 mg SC DAILY [facility] PRN Reason: Protocol Last Admin: 03/10/18 09:31 Dose: 40 mg Furosemide (Lasix) 40 mg PO BID [facility] Furosemide (Lasix) 40 mg IVP 0600,1800 [facility] Last Admin: 03/10/18 05:17 Dose: 40 mg Insulin Detemir (Levemir) 70 unit SC BID [facility] Last Admin: 03/10/18 09:31 Dose: 70 unit Insulin Human Lispro (Humalog Low) 0 units SC ACHS [facility] PRN Reason: Protocol Last Admin: 03/10/18 11:31 Dose: Not Given Insulin Human Lispro (Humalog) 30 units SC AC [facility] Last Admin: 03/10/18 12:30 Dose: Not Given Metolazone (Zaroxolyn) 5 mg PO DAILY [facility] Last Admin: 03/10/18 09:30 Dose: 5 mg Metoprolol Succinate (Toprol Xl) 100 mg PO BRK [facility] Last Admin: 03/10/18 08:03 Dose: 100 mg Multivitamins/Minerals (Therapeutic-M Tab) 1 tab PO 0800 [facility] Last Admin: 03/10/18 08:04 Dose: 1 tab Non-Formulary Medication (Febuxostat [Uloric]) 80 mg PO DAILY [facility] Last Admin: 03/10/18 09:34 Dose: Not Given Non-Formulary Medication (Multivit-Min/Fa/Lycopen/Lutein [Centrum Silver Tablet] ) 1 tab PO DAILY [facility] Last Admin: 03/10/18 09:34 Dose: Not Given Non-Formulary Medication ([place]-3/Dha/Epa/Fish Oil [Fish Oil [place]-3 Softgel]) 1 cap PO DAILY [facility] Last Admin: 03/10/18 09:35 Dose: Not Given Pantoprazole Sodium (Protonix Ec Tab) 40 mg PO 0600 [facility] Last Admin: 03/10/18 05:17 Dose: 40 mg Polyethylene Glycol (Miralax) 17 gm PO BID [facility] Last Admin: 03/10/18 09:31 Dose: 17 gm Potassium Chloride (Klor-Con 10) 10 meq PO DAILY [facility] Last Admin: 03/10/18 09:30 Dose: 10 meq - Labs Labs: 03/10/18 06:00 03/10/18 06:00 PT 14.0 SECONDS (9.4-12.5) H 03/09/18 07:30 INR 1.21 (0.93-1.08) H 03/09/18 07:30 - Additional Findings Additional findings: - Constitutional Appears: Non-toxic, No Acute Distress - Head Exam Head Exam: ATRAUMATIC, NORMAL INSPECTION, NORMOCEPHALIC - Eye Exam Eye Exam: EOMI, Normal appearance. Absent: Scleral icterus, Conjunctival injection - ENT Exam ENT Exam: Mucous Membranes Moist - Neck Exam Neck exam: Positive for: Normal Inspection, Bull neck - Respiratory Exam Respiratory Exam: Decreased Breath Sounds (likely 2/2 habitus), but otherwise Clear to Auscultation Bilateral. absent: Rales/Ronchi/Wheezes - Cardiovascular Exam Cardiovascular Exam: RRR, +S1, +S2. absent: Diastolic murmur, Systolic Murmur, JVD - GI/Abdominal Exam GI & Abdominal Exam: Distended, Firm but not Rigid, Hypoactive Bowel Sounds. absent: Guarding, Hernia, Rebound Additional comments: Less asymmetrical, with umbilicus mildly L of midline. +fluid wave. unable to assess for organomegaly or pulsatile masses due to abd distension, palpation results in pitting indentations similar to those from pitting edema in an extremity Skin changes around epigastric region, appear chronic Dilated vessels along lower aspect of abdomen, not consistent in appearance with caput medusae - Extremities Exam Extremities exam: Positive for: pedal edema (+1-2 B/L from foot to bottom 2/3rd of [place]), surgical scar running vertically along R knee - Back Exam Back exam: absent: CVA tenderness (L), CVA tenderness (R) - Neurological Exam Neurological exam: Alert, Oriented x4, following all commands, moving all extremities spontaneously - Psychiatric Exam Psychiatric exam: Normal Affect, Normal Mood - Skin Skin Exam: Dry, Intact (except as documented in extremities exam), Normal Color , Warm Assessment and Plan - Assessment and Plan (Free Text) Assessment: 52 year old male with a PMHx of CHF, CKD (Stage III), recurrent UTI's, CAD s/p stent placement, DM, KENDALL (not on CPAP), gout and osteoarthritis presents for evaluation and treatment of of Right sided abdominal/torso pain/discomfort. Plan: 1) Right Torso/Abdominal Pain/Discomfort -ascites vs abdominal wall edema vs abdominal abscess vs constipation -Colonoscopy 2017 - two polyps, EGD 2017 - Mild Gastritis, -CT Abd/Pelvis (Adm): NEGATIVE for any acute intra-adbominal pathology, no abscess noted, mild ascites and mild pericardial effusion cannot be ruled out. -continue Miralax 17 BID, Colace 100 BID -GI consuted (Dr. Hodge), appreciate all recs -Liver/spleen scan to rule out cirrhosis missed on CT 2) Suspected CHF Exacerbation -elevated BNP at 2260, but no rales appreciated on exam -Revieved Stat dose of Lasix 40 IV in ED, continue IV 40mg BID Lasix -ECHO (11/2017): EF-50%, LVH, mild hypokenisis, mild dilated LA/RA, mild TR, Mod. Pulm HTN with RVSP 48 -Stress Test (11/2017) - Normal -As per Cardio, not CHF, more likely abdominal wall edema vs abscess from med injections into abdomen 3) Hypokalemia -resolved -Potassium 3.2 on Admission, 3.9 today 4) Hx of CAD -Cont Home Meds, home Plavix 5) Hx of CKD (Stage III) -Cr 1.8 on Admission, unchanged today -Proteinuria on admission, likely 2/2 CKD (DM vs HTN, possible multifactorial) -Continue home Vitamin D, Febuxostat Uloric 6) Hx of HTN -continue home metolazone and clonidine, toprol to cover for home nebivolol 7) Hx of Diabetes -continue Levemir 70 BID, Humalog 30 [facility] AC, Low ISS 8) Hx of Gout Colchicine PRN Dispo: Tele, pending GI consult, pending Liver/spleen scan, continuing IV diuresis BID FEN: HHD Access: Peripheral IV Consults: Cardio, GI Ppx: Protonix for GI, Heparin for DVT Pt seen, reviewed, and discussed with attending, Dr. Bolton. <Viola Bolton - Last Filed: 03/11/18 16:00> Objective - Vital Signs/Intake and Output Vital Signs (last 24 hours): Temp Pulse Resp BP Pulse Ox 97.9 F 67 18 172/91 H 94 L 03/11/18 00:01 03/11/18 11:23 03/11/18 06:00 03/11/18 11:23 03/11/18 06:00 - Medications Medications: Current Medications Cholecalciferol (Vitamin D) 1,000 intlu PO DAILY [facility] Last Admin: 03/11/18 11:21 Dose: 1,000 intlu Clonidine HCl (Catapres) 0.1 mg PO BID [facility] Last Admin: 03/11/18 11:23 Dose: 0.1 mg Clopidogrel Bisulfate (Plavix) 75 mg PO DAILY [facility] Last Admin: 03/11/18 11:20 Dose: 75 mg Colchicine (Colocrys) 0.6 mg PO TID PRN PRN Reason: Pain, Mild (1-3) Docusate Sodium (Colace) 100 mg PO BID [facility] Last Admin: 03/11/18 11:19 Dose: 100 mg Furosemide (Lasix) 40 mg PO BID [facility] Last Admin: 03/11/18 11:22 Dose: 40 mg Heparin Sodium (Porcine) (Heparin) 5,000 units SC Q8 [facility] PRN Reason: Protocol Last Admin: 03/11/18 14:17 Dose: Not Given Insulin Detemir (Levemir) 70 unit SC BID [facility] Last Admin: 03/11/18 11:20 Dose: 70 unit Insulin Human Lispro (Humalog Low) 0 units SC ACHS [facility] PRN Reason: Protocol Last Admin: 03/11/18 14:17 Dose: Not Given Insulin Human Lispro (Humalog) 30 units SC AC [facility] Last Admin: 03/11/18 11:07 Dose: Not Given Metolazone (Zaroxolyn) 5 mg PO DAILY [facility] Last Admin: 03/11/18 11:21 Dose: 5 mg Metoprolol Succinate (Toprol Xl) 100 mg PO BRK [facility] Last Admin: 03/11/18 11:22 Dose: 100 mg Multivitamins/Minerals (Therapeutic-M Tab) 1 tab PO 0800 [facility] Last Admin: 03/11/18 11:21 Dose: 1 tab Non-Formulary Medication (Febuxostat [Uloric]) 80 mg PO DAILY [facility] Last Admin: 03/11/18 11:07 Dose: Not Given Non-Formulary Medication (Multivit-Min/Fa/Lycopen/Lutein [Centrum Silver Tablet] ) 1 tab PO DAILY [facility] Last Admin: 03/11/18 11:07 Dose: Not Given Non-Formulary Medication ([place]-3/Dha/Epa/Fish Oil [Fish Oil [place]-3 Softgel]) 1 cap PO DAILY [facility] Last Admin: 03/11/18 11:07 Dose: Not Given Pantoprazole Sodium (Protonix Ec Tab) 40 mg PO 0600 [facility] Last Admin: 03/11/18 06:36 Dose: 40 mg Polyethylene Glycol (Miralax) 17 gm PO BID [facility] Last Admin: 03/11/18 11:20 Dose: 17 gm Potassium Chloride (Klor-Con 10) 10 meq PO DAILY [facility] Last Admin: 03/11/18 11:20 Dose: 10 meq - Labs Labs: 03/11/18 06:00 03/11/18 06:00 PT 14.0 SECONDS (9.4-12.5) H 03/09/18 07:30 INR 1.21 (0.93-1.08) H 03/09/18 07:30 Attending/Attestation - Attestation I have personally seen and examined this patient.: Yes I have fully participated in the care of the patient.: Yes I have reviewed all pertinent clinical information, including history, physical exam and plan: Yes Notes (Text): I have seen and examined the patient at bedside. Agree with the above note dictated by the resident. Vitals, labs and imaging reviewed personally by me. Discussed the plan in detail with the patient and the resident. All questions answered. CKD is stable. Continue home meds. Upon discharge patient will follow up with Dr Trent. Dr Viola Bolton
--- NOTE | 2018-03-10 20:55 | CON ---
DATE: 03/10/2018 HISTORY OF PRESENT ILLNESS: The patient is a 52-year-old morbidly obese patient with diabetes mellitus, hypertension, and documented pulmonary hypertension with complaint of induration of the right abdominal wall. In addition, he suffers from pedal edema as well as with dyspnea. No chest pain noted. These symptoms are chronic. PHYSICAL EXAMINATION: VITAL SIGNS: Stable. NECK: Negative JVD. LUNGS: Without rales. HEART: Reveals S1, S2. EXTREMITIES: 1+ edema. EKG is unremarkable. LABORATORY DATA: Hemoglobin is 10.9. Chemistries: BUN and creatinine 52 and 1.8. IMPRESSION: 1. Pulmonary retention. 2. No evidence for abscess in the abdominal wall. 3. Mild left ventricular hypokinesis. 4. Diabetes mellitus. 5. Hypertension. 6. Morbid obesity. PLAN: Given these findings, we will continue the patient on Lasix. If no abscess, no antibiotics will be necessary. We will follow as an outpatient. <Tarik Spring MD>
[2018-03-11 00:54] VITALS: TEMP 97.9
[2018-03-11] MEDS: Pantoprazole 40 mg EC Tab PO SCH (06:36)
[2018-03-11 07:10] LABS: BASO # 0.01 K/mm3 (0.0-2.0); BASO % 0.2 % (0.0-3.0); EOS # 0.1 (0.0-0.7); EOS % 1.6 % (1.5-5.0); GRAN % 44.3 % (50.0-68.0); HEMOGLOBIN 10.3 g/dL (14.0-18.0); LYMPH # 1.9 (1.2-3.4); MEAN CELL VOLUME 95.9 fl (80.0-105.0); MEAN CORPUSCULAR HEMOGLOBIN 32.4 pg (25.0-35.0); MEAN CORPUSCULAR HGB CONC 33.8 g/dl (31.0-37.0); MEAN PLATELET VOLUME 10.4 fl (7.0-11.0); MONO # 0.6 (0.1-0.6); MONO % 12.9 % (1.0-6.0); RBC 3.18 10^6/uL (3.5-6.1); RED CELL DISTRIBUTION WIDTH 12.7 % (11.5-14.5); WHITE BLOOD COUNT 4.5 10^3/ul (4.5-11.0)
[2018-03-11 08:03] LABS: ALB/GLOB RATIO 0.8 (1.1-1.8); ALBUMIN 3.2 g/dL (3.0-4.8); CALCIUM 8.7 mg/dL (8.4-10.5)
[2018-03-11 09:07] VITALS: PULSE 67; RESP 18; O2SAT 94
[2018-03-11] MEDS: Non Formulary Medication (Multivit-Min/Fa/Lycopen/Lutein [Centrum Silver Tablet] 1 TAB) PO SCH (11:07)
[2018-03-11] MEDS: FISH OIL PO SCH (11:07)
[2018-03-11] MEDS: Insulin Lispro (humaLOG) LOW Coverage SC SCH ×2 (11:07→14:17)
[2018-03-11] MEDS: Insulin Lispro 1 UNITS/0.01 ML SC SCH (11:07)
[2018-03-11] MEDS: DHA PO SCH (11:07)
[2018-03-11] MEDS: EPA PO SCH (11:07)
[2018-03-11] MEDS: OMEGA PO SCH (11:07)
[2018-03-11] MEDS: POLYETHYLENE GLYCOL 3350 17 GM/Dose PACKET PO SCH (11:20)
[2018-03-11] MEDS: Potassium Chloride 10 mEq ER Tab PO SCH (11:20)
[2018-03-11] MEDS: Insulin Detemir 100 units/ml Vial (Levemir) SC SCH (11:20)
[2018-03-11] MEDS: metOLazone 5 MG TAB PO SCH (11:21)
[2018-03-11] MEDS: Multivitamin With Minerals Tab PO SCH (11:21)
[2018-03-11] MEDS: Cholecalciferol 1,000 INTLU TAB PO SCH (11:21)
--- NOTE | 2018-03-11 11:21 | PN ---
DATE: 03/11/2018 SUBJECTIVE: SUBJECTIVE: The patient is asymptomatic. PHYSICAL EXAMINATION: VITAL SIGNS: Blood pressure 107/64, heart rate is in the 60s. NECK: Negative JVD. LUNGS: Without rales. HEART: S1 and S2. EXTREMITIES: Chronic edema. LABORATORY DATA: Hemoglobin is 10.3, BUN and creatinine is 64 and 1.7, glucose 214. IMPRESSION: 1. Pulmonary hypertension. 2. Mild left ventricular hypokinesis. 3. Diabetes mellitus. 4. Hypertension. 5. Morbid obesity. Given these findings, his CT scan was negative for any abdominal pathology. The patient is for liver and spleen scan. If negative, the patient can be discharged. Tarik Spring MD
[2018-03-11] MEDS: Metoprolol Succinate 100 mg XL Tab PO SCH (11:22)
[2018-03-11 11:24] VITALS: BP 172/91
--- NOTE | 2018-03-11 17:25 | NM ---
PROCEDURE: Liver-spleen scan with/vascular flow HISTORY: assess for cirrhosis COMPARISON: Comparison is made to the previous CT dated 03/09/2018. TECHNIQUE: 5 millicurie of technetium 99 sulfur colloid was injected intravenously. AP, posterior, bilateral anterior oblique and bilateral lateral views of the abdomen were obtained. FINDINGS: The liver is normal in size demonstrate homogeneous radiotracer uptake. The uptake of the spleen in the posterior view is less than the liver. There is no scintigraphic evidence of colloid shaft. IMPRESSION: No scintigraphic evidence of advanced cirrhosis or evidence of significant portal hypertension or significant colloid shift.
--- NOTE | 2018-03-11 18:06 | CP.PCM.DIS ---
<Sri Cuellar - Last Filed: 03/11/18 17:57> Provider - Provider Date of Admission: 03/09/18 12:33 Attending physician: Viola Bolton MD Primary care physician: Ravindra Falcon MD Consults: Surgery - Dr. Herbert Cardiology - Dr. Spring GI - Dr. Hodge Time Spent in preparation of Discharge (in minutes): 45 Diagnosis - Discharge Diagnosis (1) Abdominal pain Status: Acute (2) Hip pain Status: Acute Hospital Course - Lab Results Lab Results: Micro Results 03/09/18 14:45 Urine,Clean Catch Urine Culture - Final No Growth (<1,000 CFU/ML) Most Recent Lab Values WBC 4.5 10^3/ul (4.5-11.0) 03/11/18 06:00 RBC 3.18 10^6/uL (3.5-6.1) L 03/11/18 06:00 Hgb 10.3 g/dL (14.0-18.0) L 03/11/18 06:00 Hct 30.5 % (42.0-52.0) L 03/11/18 06:00 MCV 95.9 fl (80.0-105.0) 03/11/18 06:00 MCH 32.4 pg (25.0-35.0) 03/11/18 06:00 MCHC 33.8 g/dl (31.0-37.0) 03/11/18 06:00 RDW 12.7 % (11.5-14.5) 03/11/18 06:00 Plt Count 206 10^3/uL (120.0-450.0) 03/11/18 06:00 MPV 10.4 fl (7.0-11.0) 03/11/18 06:00 Gran % 44.3 % (50.0-68.0) L 03/11/18 06:00 Lymph % (Auto) 41.0 % (22.0-35.0) H 03/11/18 06:00 [place] % (Auto) 12.9 % (1.0-6.0) H 03/11/18 06:00 Eos % (Auto) 1.6 % (1.5-5.0) 03/11/18 06:00 Baso % (Auto) 0.2 % (0.0-3.0) 03/11/18 06:00 Gran # 2.00 (1.4-6.5) 03/11/18 06:00 Lymph # (Auto) 1.9 (1.2-3.4) 03/11/18 06:00 [place] # (Auto) 0.6 (0.1-0.6) 03/11/18 06:00 Eos # (Auto) 0.1 (0.0-0.7) 03/11/18 06:00 Baso # (Auto) 0.01 K/mm3 (0.0-2.0) 03/11/18 06:00 PT 14.0 SECONDS (9.4-12.5) H 03/09/18 07:30 INR 1.21 (0.93-1.08) H 03/09/18 07:30 pO2 33 mm/Hg (30-55) 03/09/18 07:30 VBG pH 7.37 (7.32-7.43) 03/09/18 07:30 VBG pCO2 74.0 (40-60) H* 03/09/18 07:30 VBG HCO3 42.8 mmol/l (21-28) H 03/09/18 07:30 VBG Total CO2 45.1 mmol.L (22-28) H 03/09/18 07:30 VBG O2 Sat (Calc) 75.5 % (40-65) H 03/09/18 07:30 VBG Base Excess 13.9 mmol/L (0.0-2.0) H 03/09/18 07:30 VBG Potassium 3.2 mmol/L (3.6-5.2) L 03/09/18 07:30 Sodium 143.0 mmol/L (132-148) 03/09/18 07:30 Chloride 105.0 mmol/L (98-107) 03/09/18 07:30 Glucose 79 mg/dl (75-110) 03/09/18 07:30 Lactate 1.0 mmol/L (0.7-2.1) 03/09/18 07:30 FiO2 21.0 % 03/09/18 07:30 Sodium 139 mmol/L (132-148) 03/11/18 06:00 Potassium 4.0 mmol/L (3.6-5.0) 03/11/18 06:00 Chloride 95 mmol/L (98-107) L 03/11/18 06:00 Carbon Dioxide 39 mmol/L (21-33) H 03/11/18 06:00 Anion Gap 9 (10-20) L 03/11/18 06:00 BUN 54 mg/dL (7-21) H 03/11/18 06:00 Creatinine 1.7 mg/dl (0.8-1.5) H 03/11/18 06:00 Est GFR ( Amer) 51 03/11/18 06:00 Est GFR (Non-Af Amer) 42 03/11/18 06:00 POC Glucose (mg/dL) 155 mg/dL (65-110) H 03/11/18 12:04 Random Glucose 71 mg/dL (70-110) 03/11/18 06:00 Calcium 8.7 mg/dL (8.4-10.5) 03/11/18 06:00 Magnesium 2.1 mg/dL (1.7-2.2) 03/09/18 14:00 Total Bilirubin 0.9 mg/dL (0.2-1.3) 03/11/18 06:00 AST 45 U/L (17-59) 03/11/18 06:00 ALT 27 U/L (7-56) 03/11/18 06:00 Alkaline Phosphatase 65 U/L (38-126) 03/11/18 06:00 Lactate Dehydrogenase 709 U/L (333-699) H 03/09/18 07:30 Total Creatine Kinase 193 U/L (35-230) 03/09/18 07:30 Troponin I 0.06 ng/mL 03/09/18 07:30 NT-Pro-B Natriuret Pep 2260 pg/mL (0-450) H 03/09/18 07:30 Total Protein 7.0 g/dL (5.8-8.3) 03/11/18 06:00 Albumin 3.2 g/dL (3.0-4.8) 03/11/18 06:00 Globulin 3.9 gm/dL 03/11/18 06:00 Albumin/Globulin Ratio 0.8 (1.1-1.8) L 03/11/18 06:00 Lipase 97 U/L (23-300) 03/09/18 07:30 Venous Blood Potassium 3.2 mmol/L (3.6-5.2) L 03/09/18 07:30 Urine Color Yellow (YELLOW) 03/09/18 14:45 Urine Appearance Clear (CLEAR) 03/09/18 14:45 Urine pH 6.0 (4.7-8.0) 03/09/18 14:45 Ur Specific [place] 1.020 (1.005-1.035) 03/09/18 14:45 Urine Protein 100 mg/dL (<30 mg/dL) H 03/09/18 14:45 Urine Glucose (UA) Negative mg/dL (NEGATIVE) 03/09/18 14:45 Urine Ketones Negative mg/dL (NEGATIVE) 03/09/18 14:45 Urine Blood Small (NEGATIVE) H 03/09/18 14:45 Urine Nitrate Negative (NEGATIVE) 03/09/18 14:45 Urine Bilirubin Negative (NEGATIVE) 03/09/18 14:45 Urine Urobilinogen 0.2 E.U./dL (<1 E.U./dL) 03/09/18 14:45 Ur Leukocyte Esterase Negative Mir[place]/uL (NEGATIVE) 03/09/18 14:45 Urine RBC 1 - 3 /hpf (0-2) 03/09/18 14:45 Urine WBC 0 - 2 /hpf (0-6) 03/09/18 14:45 Ur Epithelial Cells 0 - 2 /hpf (0-5) 03/09/18 14:45 Urine Bacteria Neg (NEG) 03/09/18 14:45 Ur Random Creatinine 53 mg/dL 03/09/18 19:47 U Random Total Protein 340 mg/L 03/09/18 19:47 - Hospital Course Hospital Course: This patient is a 52 year old male with a PMHx of CHF, CKD (Stage III), recurrent UTI's, CAD s/p stent placement, DM, KENDALL (not on CPAP), gout and osteoarthritis. Patient was sent by his Work Manager (Dr. Spring) for evaluation of right lateral torso/abdomen pain/discomfort. Patient states he has had these symptoms since November. CT scan on admission was negative for any acute intrabdominal pathology. UA showed 100 Protein and small blood likely 2/2 DM vs HTN vs multifactorial. Surgery was consulted on the case. Patient also presented with dyspnea on exertion and elevated BNP. Patient was diuresed. Cardiology was consulted on the case and stated that patient was not likely in CHF exacerbation. Symptoms were most likely from adbominal wall edema vs abscess from med injection site into the abdomen. GI was also consulted on the case. Liver/Spleen scan returned negative. Hospital course complicated by hypokalemia which was replenished. Patient is to follow up with his PMD, Work Manager, and GI Physician (Dr. King) at his scheduled appointments. Patient is agreeable to plan. Patient discussed with Attending Sri Cuellar, PGY-1 Discharge Exam - Head Exam Head Exam: ATRAUMATIC, NORMAL INSPECTION, NORMOCEPHALIC - Additional Findings Additional findings: - Constitutional Appears: Non-toxic, No Acute Distress - Head Exam Head Exam: ATRAUMATIC, NORMAL INSPECTION, NORMOCEPHALIC - Eye Exam Eye Exam: EOMI, Normal appearance. Absent: Scleral icterus, Conjunctival injection - ENT Exam ENT Exam: Mucous Membranes Moist - Neck Exam Neck exam: Positive for: Normal Inspection, Bull neck - Respiratory Exam Respiratory Exam: Decreased Breath Sounds (likely 2/2 habitus), but otherwise Clear to Auscultation Bilateral. absent: Rales/Ronchi/Wheezes - Cardiovascular Exam Cardiovascular Exam: RRR, +S1, +S2. absent: Diastolic murmur, Systolic Murmur, JVD - GI/Abdominal Exam GI & Abdominal Exam: Distended, Firm but not Rigid, Hypoactive Bowel Sounds. absent: Guarding, Hernia, Rebound Additional comments: Less asymmetrical, with umbilicus mildly L of midline. +fluid wave. unable to assess for organomegaly or pulsatile masses due to abd distension, palpation results in pitting indentations similar to those from pitting edema in an extremity Skin changes around epigastric region, appear chronic Dilated vessels along lower aspect of abdomen, not consistent in appearance with caput medusae - Extremities Exam Extremities exam: Positive for: pedal edema (+1-2 B/L from foot to bottom 2/3rd of [place]), surgical scar running vertically along R knee - Back Exam Back exam: absent: CVA tenderness (L), CVA tenderness (R) - Neurological Exam Neurological exam: Alert, Oriented x4, following all commands, moving all extremities spontaneously - Psychiatric Exam Psychiatric exam: Normal Affect, Normal Mood - Skin Skin Exam: Dry, Intact (except as documented in extremities exam), Normal Color , Warm Discharge Plan - Follow Up Plan Condition: STABLE Disposition: HOME/ ROUTINE Instructions: Heart Failure, Adult (DC) Additional Instructions: Please follow up with your primary medical physician Please follow up with Work Manager (Dr. Spring) Please follow up with Dr. King at your scheduled appointment day. If symptoms return or worsen, please return to the [facility] Referrals: Ravindra Falcon MD [Primary Care Provider] - Sunday King MD [Staff Provider] - Tarik Spring MD [Staff Provider] - <Viola Bolton - Last Filed: 03/12/18 14:05> Provider - Provider Date of Admission: 03/09/18 12:33 Attending physician: Viola Bolton MD Primary care physician: Ravindra Falcon MD Hospital Course - Lab Results Lab Results: Micro Results 03/09/18 14:45 Urine,Clean Catch Urine Culture - Final No Growth (<1,000 CFU/ML) Most Recent Lab Values WBC 4.5 10^3/ul (4.5-11.0) 03/11/18 06:00 RBC 3.18 10^6/uL (3.5-6.1) L 03/11/18 06:00 Hgb 10.3 g/dL (14.0-18.0) L 03/11/18 06:00 Hct 30.5 % (42.0-52.0) L 03/11/18 06:00 MCV 95.9 fl (80.0-105.0) 03/11/18 06:00 MCH 32.4 pg (25.0-35.0) 03/11/18 06:00 MCHC 33.8 g/dl (31.0-37.0) 03/11/18 06:00 RDW 12.7 % (11.5-14.5) 03/11/18 06:00 Plt Count 206 10^3/uL (120.0-450.0) 03/11/18 06:00 MPV 10.4 fl (7.0-11.0) 03/11/18 06:00 Gran % 44.3 % (50.0-68.0) L 03/11/18 06:00 Lymph % (Auto) 41.0 % (22.0-35.0) H 03/11/18 06:00 [place] % (Auto) 12.9 % (1.0-6.0) H 03/11/18 06:00 Eos % (Auto) 1.6 % (1.5-5.0) 03/11/18 06:00 Baso % (Auto) 0.2 % (0.0-3.0) 03/11/18 06:00 Gran # 2.00 (1.4-6.5) 03/11/18 06:00 Lymph # (Auto) 1.9 (1.2-3.4) 03/11/18 06:00 [place] # (Auto) 0.6 (0.1-0.6) 03/11/18 06:00 Eos # (Auto) 0.1 (0.0-0.7) 03/11/18 06:00 Baso # (Auto) 0.01 K/mm3 (0.0-2.0) 03/11/18 06:00 PT 14.0 SECONDS (9.4-12.5) H 03/09/18 07:30 INR 1.21 (0.93-1.08) H 03/09/18 07:30 pO2 33 mm/Hg (30-55) 03/09/18 07:30 VBG pH 7.37 (7.32-7.43) 03/09/18 07:30 VBG pCO2 74.0 (40-60) H* 03/09/18 07:30 VBG HCO3 42.8 mmol/l (21-28) H 03/09/18 07:30 VBG Total CO2 45.1 mmol.L (22-28) H 03/09/18 07:30 VBG O2 Sat (Calc) 75.5 % (40-65) H 03/09/18 07:30 VBG Base Excess 13.9 mmol/L (0.0-2.0) H 03/09/18 07:30 VBG Potassium 3.2 mmol/L (3.6-5.2) L 03/09/18 07:30 Sodium 143.0 mmol/L (132-148) 03/09/18 07:30 Chloride 105.0 mmol/L (98-107) 03/09/18 07:30 Glucose 79 mg/dl (75-110) 03/09/18 07:30 Lactate 1.0 mmol/L (0.7-2.1) 03/09/18 07:30 FiO2 21.0 % 03/09/18 07:30 Sodium 139 mmol/L (132-148) 03/11/18 06:00 Potassium 4.0 mmol/L (3.6-5.0) 03/11/18 06:00 Chloride 95 mmol/L (98-107) L 03/11/18 06:00 Carbon Dioxide 39 mmol/L (21-33) H 03/11/18 06:00 Anion Gap 9 (10-20) L 03/11/18 06:00 BUN 54 mg/dL (7-21) H 03/11/18 06:00 Creatinine 1.7 mg/dl (0.8-1.5) H 03/11/18 06:00 Est GFR ( Amer) 51 03/11/18 06:00 Est GFR (Non-Af Amer) 42 03/11/18 06:00 POC Glucose (mg/dL) 155 mg/dL (65-110) H 03/11/18 12:04 Random Glucose 71 mg/dL (70-110) 03/11/18 06:00 Calcium 8.7 mg/dL (8.4-10.5) 03/11/18 06:00 Magnesium 2.1 mg/dL (1.7-2.2) 03/09/18 14:00 Total Bilirubin 0.9 mg/dL (0.2-1.3) 03/11/18 06:00 AST 45 U/L (17-59) 03/11/18 06:00 ALT 27 U/L (7-56) 03/11/18 06:00 Alkaline Phosphatase 65 U/L (38-126) 03/11/18 06:00 Lactate Dehydrogenase 709 U/L (333-699) H 03/09/18 07:30 Total Creatine Kinase 193 U/L (35-230) 03/09/18 07:30 Troponin I 0.06 ng/mL 03/09/18 07:30 NT-Pro-B Natriuret Pep 2260 pg/mL (0-450) H 03/09/18 07:30 Total Protein 7.0 g/dL (5.8-8.3) 03/11/18 06:00 Albumin 3.2 g/dL (3.0-4.8) 03/11/18 06:00 Globulin 3.9 gm/dL 03/11/18 06:00 Albumin/Globulin Ratio 0.8 (1.1-1.8) L 03/11/18 06:00 Lipase 97 U/L (23-300) 03/09/18 07:30 Venous Blood Potassium 3.2 mmol/L (3.6-5.2) L 03/09/18 07:30 Urine Color Yellow (YELLOW) 03/09/18 14:45 Urine Appearance Clear (CLEAR) 03/09/18 14:45 Urine pH 6.0 (4.7-8.0) 03/09/18 14:45 Ur Specific [place] 1.020 (1.005-1.035) 03/09/18 14:45 Urine Protein 100 mg/dL (<30 mg/dL) H 03/09/18 14:45 Urine Glucose (UA) Negative mg/dL (NEGATIVE) 03/09/18 14:45 Urine Ketones Negative mg/dL (NEGATIVE) 03/09/18 14:45 Urine Blood Small (NEGATIVE) H 03/09/18 14:45 Urine Nitrate Negative (NEGATIVE) 03/09/18 14:45 Urine Bilirubin Negative (NEGATIVE) 03/09/18 14:45 Urine Urobilinogen 0.2 E.U./dL (<1 E.U./dL) 03/09/18 14:45 Ur Leukocyte Esterase Negative [place]/uL (NEGATIVE) 03/09/18 14:45 Urine RBC 1 - 3 /hpf (0-2) 03/09/18 14:45 Urine WBC 0 - 2 /hpf (0-6) 03/09/18 14:45 Ur Epithelial Cells 0 - 2 /hpf (0-5) 03/09/18 14:45 Urine Bacteria Neg (NEG) 03/09/18 14:45 Ur Random Creatinine 53 mg/dL 03/09/18 19:47 U Random Total Protein 340 mg/L 03/09/18 19:47 Attending/Attestation - Attestation I have personally seen and examined this patient.: Yes I have fully participated in the care of the patient.: Yes I have reviewed all pertinent clinical information, including history, physical exam and plan: Yes Notes (Text): I have seen and examined the patient at bedside. Agree with the above note dictated by the resident. Vitals, labs and imaging reviewed personally by me. Discussed the plan in detail with the patient and the resident. All questions answered. CKD is stable. Continue home meds. Liver spleen scan normal. Upon discharge patient will follow up with Dr Trent and Dr King. Dr Viola Bolton
== END 2018-03-11 14:30 | disposition home or self-care (01) | DRG 392 ==
LOC: ED 06:50 → ERH 12:33 → 3RSO 14:52 → 3RNO 03-11 01:05
PROVIDERS: ADMIT Internal Medicine; ATTEND Hospitalist
DX: R10.9 Unspecified abdominal pain (principal); I13.0 Hypertensive heart and chronic kidney disease with heart failure and stage 1 through stage 4 chronic kidney disease, or unspecified chronic kidney disease; Z68.44 Body mass index [BMI] 60.0-69.9, adult; M25.559 Pain in unspecified hip; E11.22 Type 2 diabetes mellitus with diabetic chronic kidney disease; I50.9 Heart failure, unspecified; N18.3 Chronic kidney disease, stage 3 (moderate); K29.70 Gastritis, unspecified, without bleeding; E66.01 Morbid (severe) obesity due to excess calories; E87.6 Hypokalemia; G47.33 Obstructive sleep apnea (adult) (pediatric); I25.10 Atherosclerotic heart disease of native coronary artery without angina pectoris; I27.20 Pulmonary hypertension, unspecified; K59.00 Constipation, unspecified; Z79.02 Long term (current) use of antithrombotics/antiplatelets; Z79.4 Long term (current) use of insulin; Z87.440 Personal history of urinary (tract) infections; Z95.5 Presence of coronary angioplasty implant and graft; Z96.651 Presence of right artificial knee joint; M19.90 Unspecified osteoarthritis, unspecified site; Z88.6 Allergy status to analgesic agent; Z87.892 Personal history of anaphylaxis; R40.2412 Glasgow coma scale score 13-15, at arrival to emergency department; Z83.3 Family history of diabetes mellitus; M10.9 Gout, unspecified

== ENCOUNTER 2018-07-13 15:58 | Inpatient (IN) | payer BC ==
--- NOTE | 2018-07-13 16:30 | ED PDOC ---
Arrival/HPI - General Time Seen by Provider: 07/13/18 16:20 Historian: Patient - History of Present Illness Narrative History of Present Illness (Text): 07/13/18 16:22 52 y/o male, pmh including htn/dm/chf/gout, allergic to aspirin but taking plavix now, send in by PMD Dr. Falcon and request Dr. Tarik Spring for routine consult during admission, c/o leg swelling/cough and exertional shortness of breath x 1 week. Pt. stated that he has chronic gouty arthritis, been having it flared up on the lt. upper extremity for the past few days, associated with swelling and feels like his usual gout flared up, no fever or chills, no night sweat. Pt. stated that he has been having leg swelling with pedal edema, exertional shortness of breath and leg swelling, feels like his usual CHF, been consistent with his lasix, no chest pain or palpitation, no numbness or tingling , no other medical or psychological complaints. Past Medical History - Provider Review Nursing Documentation Reviewed: Yes - Infectious Disease Hx of Infectious Diseases: None - Tetanus Immunization Tetanus Immunization: Unknown - Cardiac Hx Cardiac Disorders: Yes Hx Hypertension: Yes - Pulmonary Hx Respiratory Disorders: No - Neurological Hx Neurological Disorder: No - HEENT Hx HEENT Disorder: No - Renal Hx Renal Disorder: No - Endocrine/Metabolic Hx Endocrine Disorders: Yes Hx Diabetes Mellitus Type 2: Yes - Hematological/Oncological Hx Blood Disorders: No - Integumentary Hx Dermatological Disorder: No - Musculoskeletal/Rheumatological Hx Musculoskeletal Disorders: Yes Hx Arthritis: Yes Hx Falls: No - Gastrointestinal Hx Gastrointestinal Disorders: No - Genitourinary/Gynecological Hx Genitourinary Disorders: No - Psychiatric Hx Psychophysiologic Disorder: No Hx Substance Use: No - Surgical History Hx Coronary Stent: Yes Other/Comment: Right knee replacement - Anesthesia Hx Anesthesia Reactions: No Hx Malignant Hyperthermia: No - Suicidal Assessment Feels Threatened In Home Enviroment: No Family/Social History - Physician Review Nursing Documentation Reviewed: Yes Family/Social History: Unknown Family HX Smoking Status: Never Smoked Hx Alcohol Use: No Hx Substance Use: No Hx Substance Use Treatment: No Allergies/Home Meds Allergies/Adverse Reactions: Allergies aspirin Allergy (Verified 12/20/17 15:35) ANAPHYLAXIS Home Medications: Home Meds Medication Instructions Recorded Confirmed Clonidine HCl [Catapres] 0.1 mg PO BID 01/10/16 07/13/18 Clopidogrel [Plavix] 75 mg PO DAILY 01/10/16 07/13/18 Colchicine 0.6 mg PO TID PRN 01/10/16 07/13/18 Febuxostat [Uloric] 80 mg PO DAILY 01/10/16 07/13/18 Furosemide [Lasix] 40 mg PO BID 01/10/16 07/13/18 Insulin Aspart [Novolog] 48 units SC TID 01/10/16 07/13/18 Insulin Detemir [Levemir Flextouch] 80 units SC BID 01/10/16 07/13/18 Multivit-Min/FA/Lycopen/Lutein 1 tab PO DAILY 01/10/16 07/13/18 [Centrum Silver Tablet] Nebivolol [Bystolic] 10 mg PO DAILY 01/10/16 07/13/18 [place]-3/Dha/Epa/Fish Oil [Fish Oil 1 cap PO DAILY 01/10/16 07/13/18 [place]-3 Softgel] Potassium Chloride [Klor-Con 10] 10 meq PO DAILY 01/10/16 07/13/18 Pramlintide Acetate [Symlinpen 60] 60 units SC BID 01/10/16 07/13/18 metOLazone [Zaroxolyn] 5 mg PO DAILY 01/10/16 07/13/18 Cholecalciferol (Vitamin D3) 1,000 unit PO DAILY 03/09/18 07/13/18 [Vitamin D3] Desloratadine [Clarinex] 5 mg PO DAILY 07/13/18 07/13/18 Pramlintide Acetate [Symlinpen] 60 unit SC DAILY 07/13/18 07/13/18 Review of Systems - Review of Systems Constitutional: absent: Fatigue, Fevers Eyes: absent: Vision Changes ENT: absent: Hearing Changes Respiratory: SOB, Cough Cardiovascular: Edema. absent: Chest Pain Gastrointestinal: absent: Abdominal Pain, Nausea, Vomiting Musculoskeletal: Arthralgias. absent: Back Pain, Neck Pain, Joint Swelling, Myalgias Skin: absent: Rash, Pruritis, Skin Lesions Neurological: absent: Headache, Dizziness Psychiatric: absent: Anxiety, Depression, Suicidal Ideation Physical Exam Vital Signs Reviewed: Yes Vital Signs Temp Pulse Resp BP Pulse Ox 07/13/18 18:56 64 18 132/82 98 08/16/18 16:42 18 98 07/13/18 16:37 98 F 62 18 178/78 H 98 Temperature: Afebrile Blood Pressure: Hypertensive Pulse: Regular Respiratory Rate: Normal Appearance: Positive for: Well-Appearing, Non-Toxic, Comfortable Pain Distress: Moderate Mental Status: Positive for: Alert and Oriented X 3 - Systems Exam Head: Present: Atraumatic, Normocephalic Pupils: Present: PERRL Extroacular Muscles: Present: EOMI Conjunctiva: Present: Normal Mouth: Present: Moist Mucous Membranes Neck: Present: Normal Range of Motion Respiratory/Chest: Present: Clear to Auscultation, Good Air Exchange. No: Respiratory Distress, Accessory Muscle Use Cardiovascular: Present: Regular Rate and Rhythm, Normal S1, S2, Other (2+ pedal edema noted on the bilateral lower extremities with no cellulitis or ulcers. ). No: Murmurs Abdomen: No: Tenderness, Distention, Peritoneal Signs Back: Present: Normal Inspection. No: CVA Tenderness, Midline Tenderness Upper Extremity: Present: Normal Inspection, Normal ROM, NORMAL PULSES, Neurovascularly Intact, Capillary Refill < 2s, Other (LUE: mild swelling to the lt. forearm region with no bony tenderness or deformity, FROM without limitation , sensation intact, motor 5/5, +radial pulse, capillary refill< 2 seconds, neurovascular intact. ). No: Cyanosis, Edema, Erythema, Deformity Lower Extremity: Present: Normal Inspection. No: Edema Neurological: Present: GCS=15, CN II-XII Intact, Speech Normal Skin: Present: Warm, Dry, Normal Color. No: Rashes Psychiatric: Present: Alert, Oriented x 3, Normal Insight, Normal Concentration Medical Decision Making ED Course and Treatment: 07/13/18 16:35 Differential: CHF vs. pneumonia vs. DVT vs. Gouty arthiritis -labs/uric acid/troponin/bnp/ua -LUE and bilateral LE venuous doppler -CXR -Percocet/oxygen -Observe and reassess 07/13/18 18:01 -EKG: NSR @ 65 BPM, no ST elevation or depression, no T wave inversion, compared with previous ekg. -Chest xray: +cardiomegally with mild pulmonary congestion, no infiltrate or consolidation -Bilateral LE and LUE Venuous doppler: as per preliminary report, no acute DVT -Labs show no acute findings compared with previous labs including: Hgb 10.8 from 10.3, Potassium 3.5 from 4.0 (potassium chloride 20meq po ordered), BUN 49 from 54, Creatine 2.1 from 1.7, GFR 40 from 51. -Troponin is 0.07 from 0.06, no chest pain and took his plavix earlier -BNP is 6740 from 2260 -All labs and radiology results discussed with the patient, recommend admission with Dr. Spring on routine consult which he agreed. -I discussed the case with Dr. Vick Pop, hospitalist sporting goods salesperson, discussed about the case/labs/radiology results, agreed on the admission and would admit the patient to her service for continue medical care. -Dr. Warren agreed on the treatment and admission plan, he would put in the admission order. - Lab Interpretations Lab Results: 07/14/18 05:20 07/14/18 05:20 Lab Results 07/14/18 10:58: POC Glucose (mg/dL) 158 H 07/14/18 09:54: Urine Osmolality 518, Ur Random Sodium 36 07/14/18 09:54: Urine Color Yellow, Urine Appearance Turbid, Urine pH 5.5, Ur Specific [place] 1.025, Urine Protein >=300 H, Urine Glucose (UA) 100 H, Urine Ketones Negative, Urine Blood Moderate H, Urine Nitrate Negative, Urine Bilirubin Negative, Urine Urobilinogen 0.2, Ur Leukocyte Esterase Negative, Urine RBC 10 - 15, Urine WBC 0 - 2, Hyaline Casts 0 - 2, Fine Granular Casts 0 - 2 07/14/18 08:00: Hemoglobin A1c 9.6 H D 07/14/18 08:00: Complement C3 168.0 H, Complement C4 37.5 07/14/18 08:00: Troponin I 0.09 D 07/14/18 07:28: POC Glucose (mg/dL) 137 H 07/14/18 06:30: Hep Bs Antibody Negative 07/14/18 06:30: Hep Bs Antigen Negative, Hep B Core IgM Ab Negative, Hepatitis C Antibody Reactive 07/14/18 06:30: Iron 47, TIBC 263, % Saturation 18 L, HIV 1&2 Antibody Screen Negative 07/14/18 05:20: Sodium 139, Potassium 3.6, Chloride 98, Carbon Dioxide 35 H, Anion Gap 9 L, BUN 47 H, Creatinine 2.1 H, Est GFR ( Amer) 40, Est GFR ( Non-Af Amer) 33, Random Glucose 130 H, Calcium 9.0, Phosphorus 4.6 H, Magnesium 2.3 H, Total Bilirubin 0.3, AST 34, ALT 28, Alkaline Phosphatase 92, Total Protein 7.0, Albumin 3.3, Globulin 3.7, Albumin/Globulin Ratio 0.9 L 07/14/18 05:20: WBC 5.1, RBC 3.38 L, Hgb 11.1 L, Hct 32.5 L, MCV 96.2, MCH 32.8 , MCHC 34.2, RDW 13.0, Plt Count 278, MPV 10.7, Gran % 54.5, Lymph % (Auto) 32.2 , [place] % (Auto) 12.1 H, Eos % (Auto) 1.0 L, Baso % (Auto) 0.2, Gran # 2.80, Lymph # (Auto) 1.7, [place] # (Auto) 0.6, Eos # (Auto) 0.1, Baso # (Auto) 0.01 07/14/18 01:08: Sodium 138, Potassium 3.8, Chloride 97 L, Carbon Dioxide 36 H, Troponin I 0.07 07/14/18 01:08: Free T4 1.27, TSH 3rd Generation 3.95 07/13/18 21:49: POC Glucose (mg/dL) 73 07/13/18 17:17: Sodium 139, Potassium 3.5 L, Chloride 97 L, Carbon Dioxide 36 H , Anion Gap 10, BUN 49 H, Creatinine 2.1 H, Est GFR ( Amer) 40, Est GFR ( Non-Af Amer) 33, Random Glucose 106, Uric Acid 8.5, Calcium 9.2, Magnesium 2.3 H , Total Bilirubin 0.2, AST 32, ALT 22, Alkaline Phosphatase 103, Lactate Dehydrogenase 671, Total Creatine Kinase 198, Troponin I 0.07, NT-Pro-B Natriuret Pep 6740 H, Total Protein 7.2, Albumin 3.4, Globulin 3.8, Albumin/ Globulin Ratio 0.9 L 07/13/18 17:17: WBC 6.1 D, RBC 3.24 L, Hgb 10.8 L, Hct 30.9 L, MCV 95.4, MCH 33.3, MCHC 35.0, RDW 12.8, Plt Count 268, MPV 10.5, Gran % 58.6, Lymph % (Auto) 29.5, [place] % (Auto) 10.4 H, Eos % (Auto) 1.3 L, Baso % (Auto) 0.2, Gran # 3.60, Lymph # (Auto) 1.8, [place] # (Auto) 0.6, Eos # (Auto) 0.1, Baso # (Auto) 0.01 I have reviewed the lab results: Yes - RAD Interpretation Radiology Orders: 07/13/18 16:38 CHEST PORTABLE [RAD] Stat DUPLEX LOWER EXTRM VEIN BILAT [US] Stat DUPLEX UPPER EXTRM VEIN LEFT [US] Stat 07/13/18 19:37 ABDOMEN COMPLETE [US] Stat 07/14/18 05:00 CHEST PORTABLE [RAD] Routine 07/14/18 07:30 RENAL DUPLEX COMPLETE [US] Urgent 07/14/18 10:10 BLADDER ONLY/RESIDUAL URINE [US] Routine Bilateral LE and LUE Venuous doppler: as per preliminary report, no acute DVT Chest xray: no active disease except cardiomegally with pulmonary vascular congestion. Under Baster: Radiologist - EKG Interpretation EKG Interpretation (Text): 07/13/18 16:36 -EKG: NSR @ 65 BPM, no ST elevation or depression, no T wave inversion, compared with previous ekg. Interpreted by ED Physician: Yes Type: 12 lead EKG Comparison: Com.w/previous EKG - Medication Orders Current Medication Orders: Clonidine HCl (Catapres) 0.1 mg PO BID DANNY Last Admin: 07/15/18 09:27 Dose: 0.1 mg MAR Pulse and Blood Pressure Document 07/15/18 09:27 LM (Rec: 07/15/18 09:27 LM [id number]) Pulse Pulse Rate (60-90) 74 Blood Pressure Blood Pressure (100/60-150/90) 138/59 Clopidogrel Bisulfate (Plavix) 75 mg PO DAILY [facility] Last Admin: 07/15/18 09:26 Dose: 75 mg Colchicine (Colocrys) 0.6 mg PO TID PRN PRN Reason: Pain, Mild (1-3) Last Admin: 07/14/18 01:33 Dose: 0.6 mg Dextrose (Dextrose 50% Inj) 0 ml IV STAT PRN; Protocol PRN Reason: Hypoglycemia Protocol Ferrous Gluconate (Fergon) 324 mg PO TID [facility] Last Admin: 07/15/18 09:27 Dose: 324 mg Furosemide (Lasix) 80 mg IVP BID [facility] Last Admin: 07/15/18 09:26 Dose: 80 mg MAR Blood Pressure Document 07/15/18 09:26 LM (Rec: 07/15/18 09:26 LM [id number]) Blood Pressure Blood Pressure (100/60-150/90) 138/59 IVP Administration Document 07/15/18 09:26 LM (Rec: 07/15/18 09:26 LM [id number]) Charges for Administration # of IVP Administrations 1 Dextrose (Dextrose 5% In Water 1000 Ml) 1,000 mls @ 0 mls/hr IV .Q0M PRN; Protocol; Per Protocol PRN Reason: Hypoglycemia Protocol Insulin Detemir (Levemir) 50 unit SC BID [facility] Last Admin: 07/15/18 09:11 Dose: Not Given Non-Admin Reason: Blood Sugar Parameter MAR Blood Glucose Document 07/15/18 09:11 LM (Rec: 07/15/18 09:11 LM [id number]) Blood Glucose Finger Stick Blood Glucose (70-120) 83 Insulin Human Lispro (Humalog High) 0 units SC [facility] PRN Reason: Protocol Last Admin: 07/15/18 08:29 Dose: Not Given Non-Admin Reason: Blood Sugar Parameter MAR Blood Glucose Document 07/15/18 08:29 LM (Rec: 07/15/18 08:29 LM [id number]) Blood Glucose Finger Stick Blood Glucose (70-120) 83 Insulin Human Lispro (Humalog) 20 units SC AC [facility] Last Admin: 07/15/18 08:29 Dose: Not Given Non-Admin Reason: Blood Sugar Parameter MAR Blood Glucose Document 07/15/18 08:29 LM (Rec: 07/15/18 08:29 LM [id number]) Blood Glucose Finger Stick Blood Glucose (70-120) 83 Metolazone (Zaroxolyn) 5 mg PO BID [facility] Stop: 07/17/18 18:01 Last Admin: 07/15/18 09:27 Dose: 5 mg Metoprolol Tartrate (Lopressor) 25 mg PO BID [facility] Last Admin: 07/15/18 09:27 Dose: 25 mg MAR Pulse and Blood Pressure Document 07/15/18 09:27 LM (Rec: 07/15/18 09:27 LM [id number]) Pulse Pulse Rate (60-90) 74 Blood Pressure Blood Pressure (100/60-150/90) 138/59 Non-Formulary Medication (Desloratadine [Clarinex]) 5 mg PO DAILY [facility] Last Admin: 07/15/18 09:28 Dose: Non-Formulary Medication (Febuxostat [Uloric]) 80 mg PO DAILY [facility] Last Admin: 07/15/18 09:28 Dose: Non-Formulary Medication (Nebivolol [Bystolic]) 10 mg PO DAILY [facility] Last Admin: 07/14/18 10:53 Dose: Prednisone (Prednisone Tab) 30 mg PO DAILY [facility] Last Admin: 07/15/18 09:27 Dose: 30 mg Vitamin B Complex/Vit C/Folic Acid (Nephro-Juan) 1 tab PO 0800 [facility] Last Admin: 07/15/18 09:26 Dose: 1 tab Discontinued Medications Furosemide (Lasix) 40 mg IVP STAT STA Stop: 07/13/18 17:53 Last Admin: 07/13/18 18:56 Dose: 40 mg MAR Blood Pressure Document 07/13/18 18:56 [facility] (Rec: 07/13/18 18:56 SHAWN [id number]) Blood Pressure Blood Pressure (100/60-150/90) 132/82 IVP Administration Document 07/13/18 18:56 SHAWN (Rec: 07/13/18 18:56 SHAWN [id number]) Charges for Administration # of IVP Administrations 1 Furosemide (Lasix) 40 mg IVP DAILY [facility] Last Admin: 07/14/18 09:20 Dose: 40 mg MAR Blood Pressure Document 07/14/18 09:20 ROBBK (Rec: 07/14/18 09:21 ROBBK [id number]) Blood Pressure Blood Pressure (100/60-150/90) 142/86 IVP Administration Document 07/14/18 09:20 ROBBK (Rec: 07/14/18 09:21 ROBBK [id number]) Charges for Administration # of IVP Administrations 1 Furosemide (Lasix) 40 mg IVP TID [facility] Last Admin: 07/14/18 13:47 Dose: 40 mg MAR Blood Pressure Document 07/14/18 13:47 ROBBK (Rec: 07/14/18 13:47 ROBBK [id number]) Blood Pressure Blood Pressure (100/60-150/90) 137/83 IVP Administration Document 07/14/18 13:47 ROBBK (Rec: 07/14/18 13:47 ROBBK [id number]) Charges for Administration # of IVP Administrations 1 Insulin Detemir (Levemir) 80 unit SC BID [facility] Last Admin: 07/14/18 10:59 Dose: 80 units Subcutaneous Administrations Document 07/14/18 10:59 ROBBK (Rec: 07/14/18 10:59 ROBBK [facility] [id number]) Injection Site MAR Injection Site Left Abdomen Charges for Administration # of Subcutaneous Administrations 1 Insulin Human Lispro (Humalog) 48 units SC AC [facility] Last Admin: 07/14/18 09:20 Dose: 48 units Subcutaneous Administrations Document 07/14/18 09:20 ROBBK (Rec: 07/14/18 09:20 ROBBK [facility] [id number]) Charges for Administration # of Subcutaneous Administrations 1 Metolazone (Zaroxolyn) 5 mg PO DAILY [facility] Last Admin: 07/14/18 09:20 Dose: 5 mg Oxycodone/Acetaminophen (Percocet 5/325 Mg Tab) 1 tab PO STAT STA Stop: 07/13/18 16:41 Last Admin: 07/13/18 17:06 Dose: 1 tab MAR Pain Assessment Document 07/13/18 17:06 SHAWN (Rec: 07/13/18 17:06 SHAWN [id number]) Pain Reassessment Is this a pain reassessment? No Sleep Is patient sleeping during reassessment? No Presence of Pain Presence of Pain Yes Pain Scale Used Pain Scale Used Numeric Description Description Intermittent Intensity of Pain at present 4 Re-Assess: MALIHA Pain Assessment Document 07/13/18 18:06 SHAWN (Rec: 07/13/18 19:42 MARLYSAyse [id number]) Pain Reassessment Is this a pain reassessment? Yes Sleep Is patient sleeping during reassessment? No Presence of Pain Presence of Pain No Potassium Chloride (K-Dur 20 Meq Er Tab) 20 meq PO STAT STA Stop: 07/13/18 18:47 Last Admin: 07/13/18 18:56 Dose: 20 meq Potassium Chloride (K-Dur 20 Meq Er Tab) 20 meq PO ONCE ONE Stop: 07/14/18 15:22 Last Admin: 07/14/18 15:36 Dose: 20 meq Potassium Chloride (Potassium Chloride Oral Soln) 40 meq PO ONCE ONE Stop: 07/15/18 08:45 Last Admin: 07/15/18 09:26 Dose: 40 meq - PA / INTELLIGENCE AGENT / Resident Statement MD/DO has reviewed & agrees with the documentation as recorded. Disposition/Present on Arrival - Present on Arrival Any Indicators Present on Arrival: No History of DVT/PE: No History of Uncontrolled Diabetes: No Urinary Catheter: No History of Decub. Ulcer: No History Surgical Site Infection Following: None - Disposition Have Diagnosis and Disposition been Completed?: Yes Diagnosis: Chronic anemia, Hypokalemia, CHF (congestive heart failure), Gouty arthritis, CKD (chronic kidney disease) Disposition: HOSPITALIZED Disposition Time: 17:27 Patient Plan: Admission, Observation, Telemetry Patient Problems: Current Active Problems Problem Status Onset CHF (congestive heart failure) Acute CKD (chronic kidney disease) Acute Chronic anemia Acute Gouty arthritis Acute Hypokalemia Acute Condition: STABLE
[2018-07-13] MEDS ORDERED: Oxycodone/Acetaminophen 5/325 mg Tab PO STA (16:40)
[2018-07-13 17:23] LABS: BASO # 0.01 K/mm3 (0.0-2.0); BASO % 0.2 % (0.0-3.0); EOS # 0.1 (0.0-0.7); EOS % 1.3 % (1.5-5.0); GRAN # 3.6 (1.4-6.5); GRAN % 58.6 % (50.0-68.0); HEMOGLOBIN 10.8 g/dL (14.0-18.0); LYMPH # 1.8 (1.2-3.4); LYMPH % 29.5 % (22.0-35.0); MEAN CELL VOLUME 95.4 fl (80.0-105.0); MEAN CORPUSCULAR HEMOGLOBIN 33.3 pg (25.0-35.0); MEAN PLATELET VOLUME 10.5 fl (7.0-11.0); MONO # 0.6 (0.1-0.6); MONO % 10.4 % (1.0-6.0); RBC 3.24 10^6/uL (3.5-6.1); RED CELL DISTRIBUTION WIDTH 12.8 % (11.5-14.5); WHITE BLOOD COUNT 6.1 10^3/ul (4.5-11.0)
[2018-07-13 17:39] LABS: ALB/GLOB RATIO 0.9 (1.1-1.8); ALBUMIN 3.4 g/dL (3.0-4.8); CALCIUM 9.2 mg/dL (8.4-10.5); URIC ACID 8.5 mg/dL (3.5-8.5)
[2018-07-13 17:50] LABS: TROPONIN I 0.07 ng/mL
[2018-07-13] MEDS ORDERED: Potassium Chloride 20 mEq ER Tab PO STA (18:46)
--- NOTE | 2018-07-14 00:08 | CP.PCM.HP ---
<Rivera Ayalae - Last Filed: 07/14/18 06:02> History of Present Illness - History of Present Illness History of Present Illness: Srinath Ayala PGY2 - History and Physical for Dr. Bolton CC: Fluid accumulation, shortness of breath, gout flare of left wrist/hand HPI: 52 year old AA male with past medical history of CHF, CKD (Stage III), recurrent UTI's, CAD s/p stent placement, DM, KENDALL (not on CPAP), gout and osteoarthritis and edema of the lower extremities and abdomen who presents to [facility] via private vehicle from primary care physician's office for perpetual fluid accumulation of his lower extremities and abdomen. Patient indicates that for the past year he has been slowly gaining weight and accumulating fluid in his legs bilaterally and abdomen. He indicates that he has probably gained 40- 50 pounds over the past year. He indicates that he has been evaluated by a sec reporting consultant with an abdominal/pelvis CT which showed no intra abdominal pathology. Patient has also experienced shortness of braeath for at least the past week to two weeks which he accredits to his fluid accumulation. He indicates some chest discomfort with exertion but feels his problems stem from all the fluid he has put on. Patient has previously been evaluated by his Cardioglogist Dr. Spring in 03/10/2018 and found to have pulmonary congestion/ pulmonary hypertension. Patient also expresses issues with his chronic gouty arthritis for which his entire left arm had been swollen 2 days prior to admission. He reports only mild swelling of his left wrist, dorsal of left hand and first joints. He reports pain with movement and warmth to touch. He denies any numbness, tingling, limtied range of motion with his left hand. Patient was evaluated in the ED and found to have elevated BNP and given one dose of lasix 40mg IV. He was also found to have elevated Cr from previous admission. 12 point ROS other than mentioned in HPI is benign. PMHx: CAD s/p stent placement, CAD, DM, KENDALL (not on CPAP), gout, osteoarthritis. Last Echo was Nov 2017. Last colonoscopy and EGD 2016. ALL: aspirin PSHx: R knee arthroplasty, L temporal a. bx (negative), left shoulder surgery FHx: father when pt was very young from cancer (unknown), mother has DM, sister has DM Meds: Reviewed Soc: drinks socially Fri through Sun (1 bottle of Job Avelar), no smoking or other drugs. Has not had alcohol in last 2 weeks. 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 Spring Present on Admission - Present on Admission Any Indicators Present on Admission: No Review of Systems - Review of Systems All systems: reviewed and no additional remarkable complaints except (as mentioned in HPI) Past Patient History - Infectious Disease Hx of Infectious Diseases: None - Tetanus Immunizations Tetanus Immunization: Unknown - Past Medical History & Family History Past Medical History?: Yes - Past Social History Smoking Status: Never Smoked Alcohol: None Drugs: Denies - CARDIAC Hx Cardiac Disorders: Yes Hx Hypertension: Yes - PULMONARY Hx Respiratory Disorders: No - NEUROLOGICAL Hx Neurological Disorder: No - HEENT Hx HEENT Problems: No - RENAL Hx Chronic Kidney Disease: No - ENDOCRINE/METABOLIC Hx Endocrine Disorders: Yes Hx Diabetes Mellitus Type 2: Yes - HEMATOLOGICAL/ONCOLOGICAL Hx Blood Disorders: No - INTEGUMENTARY Hx Dermatological Problems: No - MUSCULOSKELETAL/RHEUMATOLOGICAL Hx Musculoskeletal Disorders: Yes Hx Arthritis: Yes Hx Falls: No - GASTROINTESTINAL Hx Gastrointestinal Disorders: No - GENITOURINARY/GYNECOLOGICAL Hx Genitourinary Disorders: No - PSYCHIATRIC Hx Psychophysiologic Disorder: No Hx Substance Use: No - SURGICAL HISTORY Hx Coronary Stent: Yes Other/Comment: Right knee replacement - ANESTHESIA Hx Anesthesia Reactions: No Hx Malignant Hyperthermia: No Meds Allergies/Adverse Reactions: Allergies Allergy/AdvReac Type Severity Reaction Status Date / Time aspirin Allergy ANAPHYLAXIS Verified 12/20/17 15:35 Physical Exam - Constitutional Appears: No Acute Distress - Head Exam Head Exam: ATRAUMATIC, NORMAL INSPECTION, NORMOCEPHALIC - Eye Exam Eye Exam: EOMI, PERRL - ENT Exam ENT Exam: Mucous Membranes Moist - Neck Exam Neck exam: Positive for: Full Rom - Respiratory Exam Respiratory Exam: Rales (mild at bases bilaterally ), NORMAL BREATHING PATTERN - Cardiovascular Exam Cardiovascular Exam: REGULAR RHYTHM, +S1, +S2 - GI/Abdominal Exam GI & Abdominal Exam: Distended, Firm, Normal Bowel Sounds. absent: Guarding, Hernia, Mass, Rigid - Extremities Exam Extremities exam: Positive for: pedal edema (3+ edema) Additional comments: Left upper extremity showing swelling and warmth to touch at writs and dorsal aspect of hand, range of motion intact, sensory and motor intact - Neurological Exam Neurological exam: Alert, CN II-XII Intact, Normal Gait, Oriented x3 - Psychiatric Exam Psychiatric exam: Normal Affect, Normal Mood - Skin Skin Exam: Dry, Intact Results - Vital Signs Recent Vital Signs: Last Vital Signs Temp 98 F 07/13/18 16:37 Pulse 64 07/13/18 18:56 Resp 18 07/13/18 18:56 BP 132/82 07/13/18 18:56 Pulse Ox 98 07/13/18 18:56 - Labs Result Diagrams: 07/13/18 17:17 07/14/18 01:08 Labs: Laboratory Results - last 24 hr 07/13/18 21:49 POC Glucose (mg/dL) 73 Assessment & Plan - Assessment and Plan (Free Text) Assessment: 52 year old AA male with past medical history of CHF, CKD (Stage III), recurrent UTI's, CAD s/p stent placement, DM, KENDALL (not on CPAP), gout and osteoarthritis who presents with progressively worsening edema of the lower extremities and abdomen over the past 12 months as well as pain associated wtih gouty arthritis flare. Plan: Anasarca - Etiology: CHF vs. venous insufficiency vs. pre-renal syndrome - CXR on admission shows cardiomegaly and pulmonary congestion, interpretted by me - Lasix IV 40mg given in ED - Nephrology consulted, appreciate recs - Urine studies ordered - echocardiogram for evaluation of EF and wall motion abnormalities - Attempt to diuresis patient in setting of CKD stage 3 Gout flare - Etiology: Chronic gout likely secondary to CKD vs. diet - Continue colchicine - Oral prednisone 30mg Daily - Avoiding NSAIDS secondary to CKD status - Monitor Hx of CAD s/p stent placement - Continue home meds - Cardiology consulted DM2 - Continue home insulin regiment - ACHS - Carb consistent diet - Nutrition referral GI/DVT ppx - Protonix - SCDs Case and plan discussed with attending Dr. Che Ayala PGY2 - Date & Time Date: 07/13/18 Time: 20:45 <Patel Bolton - Last Filed: 07/15/18 03:15> Results - Vital Signs Recent Vital Signs: Last Vital Signs Temp 98 F 07/14/18 06:00 Pulse 68 07/14/18 06:00 Resp 19 07/14/18 06:00 BP 137/75 07/14/18 06:00 Pulse Ox 97 07/14/18 06:00 - Labs Result Diagrams: 07/14/18 05:20 07/14/18 05:20 Labs: Laboratory Results - last 24 hr 07/13/18 07/14/18 07/14/18 21:49 01:08 01:08 WBC RBC Hgb Hct MCV MCH MCHC RDW Plt Count MPV Gran % Lymph % (Auto) [place] % (Auto) Eos % (Auto) Baso % (Auto) Gran # Lymph # (Auto) [place] # (Auto) Eos # (Auto) Baso # (Auto) Sodium 138 Potassium 3.8 Chloride 97 L Carbon Dioxide 36 H Anion Gap BUN Creatinine Est GFR ( Amer) Est GFR (Non-Af Amer) POC Glucose (mg/dL) 73 Random Glucose Calcium Phosphorus Magnesium Total Bilirubin AST ALT Alkaline Phosphatase Troponin I 0.07 Total Protein Albumin Globulin Albumin/Globulin Ratio Free T4 1.27 TSH 3rd Generation 3.95 07/14/18 07/14/18 05:20 05:20 WBC 5.1 RBC 3.38 L Hgb 11.1 L Hct 32.5 L MCV 96.2 MCH 32.8 MCHC 34.2 RDW 13.0 Plt Count 278 MPV 10.7 Gran % 54.5 Lymph % (Auto) 32.2 [place] % (Auto) 12.1 H Eos % (Auto) 1.0 L Baso % (Auto) 0.2 Gran # 2.80 Lymph # (Auto) 1.7 [place] # (Auto) 0.6 Eos # (Auto) 0.1 Baso # (Auto) 0.01 Sodium 139 Potassium 3.6 Chloride 98 Carbon Dioxide 35 H Anion Gap 9 L BUN 47 H Creatinine 2.1 H Est GFR ( Amer) 40 Est GFR (Non-Af Amer) 33 POC Glucose (mg/dL) Random Glucose 130 H Calcium 9.0 Phosphorus 4.6 H Magnesium 2.3 H Total Bilirubin 0.3 AST 34 ALT 28 Alkaline Phosphatase 92 Troponin I Total Protein 7.0 Albumin 3.3 Globulin 3.7 Albumin/Globulin Ratio 0.9 L Free T4 TSH 3rd Generation
[2018-07-14 01:51] LABS: TROPONIN I 0.07 ng/mL
[2018-07-14 02:00] LABS: FREE T4 1.27 ng/dL (0.78-2.19)
[2018-07-14 04:02] VITALS: BMI 58.4
[2018-07-14 06:23] LABS: BASO # 0.01 K/mm3 (0.0-2.0); BASO % 0.2 % (0.0-3.0); EOS # 0.1 (0.0-0.7); GRAN # 2.8 (1.4-6.5); GRAN % 54.5 % (50.0-68.0); HEMOGLOBIN 11.1 g/dL (14.0-18.0); LYMPH # 1.7 (1.2-3.4); LYMPH % 32.2 % (22.0-35.0); MEAN CELL VOLUME 96.2 fl (80.0-105.0); MEAN CORPUSCULAR HEMOGLOBIN 32.8 pg (25.0-35.0); MEAN CORPUSCULAR HGB CONC 34.2 g/dl (31.0-37.0); MEAN PLATELET VOLUME 10.7 fl (7.0-11.0); MONO # 0.6 (0.1-0.6); MONO % 12.1 % (1.0-6.0); RBC 3.38 10^6/uL (3.5-6.1); WHITE BLOOD COUNT 5.1 10^3/ul (4.5-11.0)
[2018-07-14 06:33] LABS: ALB/GLOB RATIO 0.9 (1.1-1.8); ALBUMIN 3.3 g/dL (3.0-4.8)
[2018-07-14] MEDS ORDERED: Insulin Lispro 1 UNITS/0.01 ML SC SCH (07:30)
--- NOTE | 2018-07-14 08:24 | CARD ---
APPROVED REPORT Date of service: 07/13/2018 EKG Measurement Heart [id number] <Conclusion> Normal sinus rhythm Low voltage QRS Cannot rule out Anterior infarct, age undetermined Abnormal ECG
--- NOTE | 2018-07-14 09:59 | RAD ---
Date of service: 07/13/2018 HISTORY: Shortness of breath COMPARISON: 03/09/2018 FINDINGS: LUNGS: The lungs are well inflated. There is no focal consolidation. There is mild pulmonary venous congestion PLEURA: No significant pleural effusion identified, no pneumothorax apparent. CARDIOVASCULAR: There is persistent severe cardiomegaly. OSSEOUS STRUCTURES: No significant abnormalities. VISUALIZED UPPER ABDOMEN: Normal. OTHER FINDINGS: None. IMPRESSION: No active pulmonary disease. Severe cardiomegaly and mild pulmonary venous congestion.
[2018-07-14] MEDS ORDERED: metOLazone 5 MG TAB PO SCH (10:00)
[2018-07-14] MEDS ORDERED: Insulin Detemir 100 units/ml Vial (Levemir) SC SCH (10:00)
[2018-07-14 10:04] LABS: PH,URINE 5.5 (4.7-8.0); URINE BILIRUBIN NEGATIVE (NEGATIVE); URINE BLOOD MODERATE (NEGATIVE); URINE GLUCOSE (UA) 100 mg/dL (NEGATIVE); URINE LEUKOCYTE ESTERASE NEGATIVE Leu/uL (NEGATIVE); URINE PROTEIN >=300 mg/dL (<30 mg/dL); URINE UROBILINOGEN 0.2 E.U./dL (<1 E.U./dL)
--- NOTE | 2018-07-14 10:11 | RAD ---
Date of service: 07/14/2018 HISTORY: Follow-up COMPARISON: 07/13/2018. FINDINGS: LUNGS: The lungs are well inflated. There is mild pulmonary venous congestion. PLEURA: No significant pleural effusion identified, no pneumothorax apparent. CARDIOVASCULAR: Persistent moderate cardiomegaly with prominent central vasculature. OSSEOUS STRUCTURES: No significant abnormalities. VISUALIZED UPPER ABDOMEN: Normal. OTHER FINDINGS: None. IMPRESSION: No change in moderate cardiomegaly and mild pulmonary venous congestion. No active pulmonary disease.
[2018-07-14 10:27] LABS: URINE APPEARANCE TURBID (CLEAR); URINE COLOR YELLOW (YELLOW)
[2018-07-14 10:31] LABS: URINE FINE GRANULAR CAST 0 - 2 /hpf (0-2); URINE HYALINE CAST 0 - 2 /hpf; URINE WBC 0 - 2 /hpf (0-6)
[2018-07-14] MEDS: DESLORATADINE 5 MG PO SCH (10:52)
[2018-07-14 10:55] LABS: IRON 47 ug/dL (45-180)
[2018-07-14 11:04] LABS: % IRON SATURATION 18 % (20-55); TOTAL IRON BINDING CAPACITY 263 ug/dL (261-462)
[2018-07-14 11:05] LABS: OSMOLALITY,URINE 518 mosm/kg (300-1000)
[2018-07-14] MEDS ORDERED: Dextrose 50% SYRINGE Inj (50 ml) IV PRN (11:12)
--- NOTE | 2018-07-14 11:19 | CP.PCM.PN ---
<Shan Pop - Last Filed: 07/14/18 15:36> Subjective - Date & Time of Evaluation Date of Evaluation: 07/14/18 Time of Evaluation: 11:16 - Subjective Subjective: Shan Pop DO PGY1 Internal Medicine [employer] - Hospital Progress Note Patient was seen and examined this AM at bedside; No acute events overnight; Patient not voicing any new issues this AM Denies CP, SOB, Abd Pain, N/V/D/C, Urinary issues at this time. Objective - Vital Signs/Intake and Output Vital Signs (last 24 hours): Temp Pulse Resp BP Pulse Ox 98 F 74 19 142/86 97 07/14/18 06:00 07/14/18 10:00 07/14/18 06:00 07/14/18 09:21 07/14/18 06:00 Intake and Output: 07/14/18 07/14/18 06:59 18:59 Intake Total 360 Balance 360 - Medications Medications: Current Medications Clonidine HCl (Catapres) 0.1 mg PO BID [facility] Last Admin: 07/14/18 09:21 Dose: 0.1 mg Clopidogrel Bisulfate (Plavix) 75 mg PO DAILY [facility] Last Admin: 07/14/18 09:21 Dose: 75 mg Colchicine (Colocrys) 0.6 mg PO TID PRN PRN Reason: Pain, Mild (1-3) Last Admin: 07/14/18 01:33 Dose: 0.6 mg Ferrous Gluconate (Fergon) 324 mg PO TID [facility] Furosemide (Lasix) 40 mg IVP TID [facility] Insulin Detemir (Levemir) 80 unit SC BID [facility] Last Admin: 07/14/18 10:59 Dose: 80 units Insulin Human Lispro (Humalog) 48 units SC AC [facility] Last Admin: 07/14/18 09:20 Dose: 48 units Metolazone (Zaroxolyn) 5 mg PO DAILY [facility] Last Admin: 07/14/18 09:20 Dose: 5 mg Non-Formulary Medication (Desloratadine [Clarinex]) 5 mg PO DAILY [facility] Last Admin: 07/14/18 10:52 Dose: Not Given Non-Formulary Medication (Febuxostat [Uloric]) 80 mg PO DAILY [facility] Last Admin: 07/14/18 10:52 Dose: Not Given Non-Formulary Medication (Nebivolol [Bystolic]) 10 mg PO DAILY [facility] Last Admin: 07/14/18 10:53 Dose: Not Given Prednisone (Prednisone Tab) 30 mg PO DAILY [facility] Last Admin: 07/14/18 09:20 Dose: 30 mg Vitamin B Complex/Vit C/Folic Acid (Nephro-Juan) 1 tab PO 0800 [facility] - Labs Labs: 07/14/18 05:20 07/14/18 05:20 Physical Exam - Constitutional Appears: No Acute Distress - Head Exam Head Exam: ATRAUMATIC, NORMAL INSPECTION, NORMOCEPHALIC - Eye Exam Eye Exam: EOMI, PERRL - ENT Exam ENT Exam: Mucous Membranes Moist - Neck Exam Neck exam: Positive for: Full Rom - Respiratory Exam Respiratory Exam: Rales (mild at bases bilaterally ), NORMAL BREATHING PATTERN - Cardiovascular Exam Cardiovascular Exam: REGULAR RHYTHM, +S1, +S2 - GI/Abdominal Exam GI & Abdominal Exam: Distended, Firm, Normal Bowel Sounds. absent: Guarding, Hernia, Mass, Rigid - Extremities Exam Extremities exam: Positive for: pedal edema (3+ edema) Additional comments: Left upper extremity showing swelling and warmth to touch at writs and dorsal aspect of hand, range of motion intact, sensory and motor intact - Neurological Exam Neurological exam: Alert, CN II-XII Intact, Normal Gait, Oriented x3 - Psychiatric Exam Psychiatric exam: Normal Affect, Normal Mood - Skin Skin Exam: Dry, Intact Assessment and Plan - Assessment and Plan (Free Text) Assessment: 52 year old AA male with past medical history of CHF, CKD (Stage III), recurrent UTI's, CAD s/p stent placement, DM, KENDALL (not on CPAP), gout and osteoarthritis who presents with progressively worsening edema of the lower extremities and abdomen over the past 12 months as well as pain associated wtih gouty arthritis flare. Plan: Anasarca - Etiologies include: Nephrotic syndrome vs CHF exacerbation vs Venous insufficiency vs hepatic etiologies - CXR w/ no change in cardiomegaly; pulmonary congestion - Started Lasix IV 40mg IVP TID; Will attempt diuresis in setting of CKD3 - Started Metalozone 5mg QD - UA - proteinuria - Urine studies ordered; will follow up - Echocardiogram for evaluation of EF and wall motion abnormalities - Strict IO + Daily weight - Abdominal US - mild hepatomegaly, possible hepatic steatosis; inflammatory/ infectious etiologies cannot be excluded; - UE/LE US pending - Troponin equivocal at this time - Cardiology Consulted - Dr. Spring - Nephrology Consulted - Dr. Vega SUSAN in setting of CKD III - Pre-renal SUSAN - Baseline Cr 1.6; BUN/ Cr 47/ 2.1 this AM - Proteinuria, Glucosuria, and Moderate blood in UA - Estimated Urinary Protein Excretion: 5.7g/day - Continue monitoring Cr - Renal ultrasound pending - Bladder ultrasound wnl - Nephrology Following - Dr. Vega Gout flare - Etiology: Chronic gout likely secondary to CKD vs. diet - Continue colchicine - Continue febuxostat - Oral prednisone 30mg Daily - Avoiding NSAIDS secondary to CKD status - Forearm xray - Forearm swelling; no osseous abnormality - Hand xray - Soft tissue swelling w/o osseous abnormality; punctate foreign bodies within soft tissues - Possible steroid injection ortho consulted - Ortho consulted - Dr. Harding Hx of CAD s/p stent placement - Plavix 75 QD - Cardiology consulted DM2 - Levamir 50 BID - Humalog 20 AC - ISS High protocol - Accucheck ACHS - A1C 9.6 - Carb consistent diet - Nutrition referral Hx Hypertension - Clonidine - 0.1 BID - Bystolic - 10mg QD GI/DVT ppx - Protonix - SCDs Dispo: Patient to be inpatient for medical management and workup of anasarca, SUSAN, Acute gout flare, and other chronic conditions Patient was seen, eamined, and discussed at bedside w/ Attending physician Dr. Lorena Pop DO PGY1 Internal Medicine [employer] - Pager [phone] <Dread Carrillo - Last Filed: 07/14/18 16:32> Objective - Vital Signs/Intake and Output Vital Signs (last 24 hours): Temp Pulse Resp BP Pulse Ox 97.5 F L 73 20 137/83 97 07/14/18 12:00 07/14/18 14:00 07/14/18 12:00 07/14/18 13:47 07/14/18 06:00 - Medications Medications: Current Medications Clonidine HCl (Catapres) 0.1 mg PO BID [facility] Last Admin: 07/14/18 09:21 Dose: 0.1 mg Clopidogrel Bisulfate (Plavix) 75 mg PO DAILY [facility] Last Admin: 07/14/18 09:21 Dose: 75 mg Colchicine (Colocrys) 0.6 mg PO TID PRN PRN Reason: Pain, Mild (1-3) Last Admin: 07/14/18 01:33 Dose: 0.6 mg Dextrose (Dextrose 50% Inj) 0 ml IV STAT PRN; Protocol PRN Reason: Hypoglycemia Protocol Ferrous Gluconate (Fergon) 324 mg PO TID [facility] [place] Last Admin: 07/14/18 13:45 Dose: 324 mg Furosemide (Lasix) 40 mg IVP TID [facility] Last Admin: 07/14/18 13:47 Dose: 40 mg Dextrose (Dextrose 5% In Water 1000 Ml) 1,000 mls @ 0 mls/hr IV .Q0M PRN; Protocol; Per Protocol PRN Reason: Hypoglycemia Protocol Insulin Detemir (Levemir) 50 unit SC BID [facility] Insulin Human Lispro (Humalog High) 0 units SC ACHS [facility] PRN Reason: Protocol Last Admin: 07/14/18 13:45 Dose: 2 units Insulin Human Lispro (Humalog) 20 units SC AC [facility] Last Admin: 07/14/18 13:46 Dose: 20 units Metolazone (Zaroxolyn) 5 mg PO DAILY [facility] [place] Last Admin: 07/14/18 09:20 Dose: 5 mg Metoprolol Tartrate (Lopressor) 25 mg PO BID [facility] Non-Formulary Medication (Desloratadine [Clarinex]) 5 mg PO DAILY [facility] Last Admin: 07/14/18 10:52 Dose: Not Given Non-Formulary Medication (Febuxostat [Uloric]) 80 mg PO DAILY [facility] Last Admin: 07/14/18 10:52 Dose: Not Given Non-Formulary Medication (Nebivolol [Bystolic]) 10 mg PO DAILY [facility] Last Admin: 07/14/18 10:53 Dose: Not Given Prednisone (Prednisone Tab) 30 mg PO DAILY [facility] Last Admin: 07/14/18 09:20 Dose: 30 mg Vitamin B Complex/Vit C/Folic Acid (Nephro-Juan) 1 tab PO 0800 [facility] Attending/Attestation - Attestation I have personally seen and examined this patient.: Yes I have fully participated in the care of the patient.: Yes I have reviewed all pertinent clinical information, including history, physical exam and plan: Yes Notes (Text): 07/14/18 16:18 52 year old male with past medical history of CHF, CKD, CAD s/p stent, diabetes and gout who presents with worsening generalized edema (lower extremity, abdomen , left > right upper extremity). Pbnp is elevated. Cardiomegaly and mild congestion on CXR. He is started on IV lasix. He is on metolazone and metoprolol. Cardiology evaluation was appreciated. Echocardiogram is ordered. Dopplers were negative for DVT. Nephrology evaluation was requested as well for acute on chronic renal failure. Renal / bladder / abdominal ultrasounds were reviewed. Will monitor kidney function closely while on diuretics and follow up with nephrology recommendations. He is on colchichine and prednisone for acute gout flare up of his left hand. Xrays were reviewed. Orthopedics evaluation was appreciated. He is on levemir, humalog and insulin ss for diabetes. A1c level was 9.6. Dread Carrillo MD Hospitalist.
--- NOTE | 2018-07-14 11:37 | US ---
Date of service: 07/13/2018 HISTORY: abdominal distention, edema COMPARISON: None. TECHNIQUE: Grayscale imaging was performed. FINDINGS: LIVER: Measures 20.4 cm. There is diffuse increased echogenicity of the liver parenchyma. No mass. No intrahepatic bile duct dilatation. GALLBLADDER: There are no gallstones, wall thickening or pericholecystic fluid. The sonographic Hale's sign is negative. COMMON BILE DUCT: Measures 4.7 mm. No stones. No dilatation. PANCREAS: Unremarkable as visualized. No mass. No ductal dilatation. RIGHT KIDNEY: Measures 12.5cm. Normal echogenicity. No calculus, mass, or hydronephrosis. LEFT KIDNEY: Measures 12.1cm. Normal echogenicity. No calculus, mass, or hydronephrosis. SPLEEN: Normal in size and contour. No mass. AORTA: No aneurysmal dilatation. IVC: Unremarkable. OTHER FINDINGS: None. IMPRESSION: Examination is technically limited due to opacity. No cholelithiasis or biliary dilatation. Mild hepatomegaly. Diffuse increased echogenicity in the liver may reflect hepatic steatosis however parenchymal infectious/ inflammatory etiologies cannot be entirely excluded. Clinical and laboratory correlation is advised.
--- NOTE | 2018-07-14 12:10 | CON ---
Copied To: Tarik Spring MD Attending MD: Tarik Spring MD DATE: 07/14/2018 CARDIOLOGY CONSULTATION HISTORY: The patient is a 52-year-old male, who presents with shortness of breath and pedal edema. The patient's past medical history is notable for hypertension, diabetes mellitus and obesity. The patient has gained approximately 50 pounds over the past 6 months despite stating that he does not eat much. The patient's previous workup has included hypertension, diabetes mellitus, hypercholesterolemia, metabolic syndrome as well as documented pulmonary hypertension. SOCIAL HISTORY: He denies smoking. REVIEW OF SYSTEMS: Fourteen-point review of systems was reviewed in detail. The patient admits to edema in the lower extremities. Positive progressive shortness of breath. Negative angina. Positive anxiety. PHYSICAL EXAMINATION: VITAL SIGNS: Blood pressure is 142/86, the heart rate is in the 70s. NECK: Negative JVD. LUNGS: Decreased breath sounds bilaterally. HEART: Reveals S1, S2. EXTREMITIES: Positive edema. The knees revealed bilateral scars from knee surgery. EKG shows normal sinus rhythm with poor R-wave progression. LABORATORY DATA: The creatinine has gone up to 2.1, glucose is 130. Hemoglobin is 11.1. IMPRESSION: 1. Morbid obesity with progressive weight gain. 2. Right-sided congestive heart failure with pedal edema. 3. Pulmonary hypertension. 4. Diabetes mellitus. 5. Systemic hypertension. 6. Hypercholesterolemia. 8. Dyspnea. PLAN: Given these findings, we will continue Lasix. The patient is currently getting a renal workup. We will obtain an echocardiogram to evaluate LV function and to see whether his LV has deteriorated. Tarik Spring MD
--- NOTE | 2018-07-14 13:31 | RAD ---
Date of service: 07/14/2018 PROCEDURE: Radiographs of the Left Forearm HISTORY: swelling COMPARISON: None available. TECHNIQUE: Frontal and lateral views obtained. FINDINGS: BONES: No fracture or destructive lesion. JOINT SPACES: Diffuse edematous changes left forearm. OTHER FINDINGS: None. IMPRESSION: Soft tissue swelling without acute articular or osseous abnormality.
--- NOTE | 2018-07-14 13:31 | RAD ---
PROCEDURE: Left Hand Radiographs. HISTORY: swelling COMPARISON: None. FINDINGS: BONES: No visible fracture. JOINTS: Normal. No osteoarthritic changes. SOFT TISSUES: Diffuse soft tissue swelling. Punctate foreign bodies identified within soft tissues adjacent to the proximal phalanx left 2nd digit and the thenar region. OTHER FINDINGS: None. IMPRESSION: Soft tissue swelling without acute articular or osseous abnormality. Punctate foreign bodies within soft tissues.
[2018-07-14] MEDS: Insulin Lispro (HUMAlog) HIGH Coverage SC SCH ×3 (13:45→21:32)
[2018-07-14] MEDS: Insulin Lispro 1 UNITS/0.01 ML SC SCH ×2 (13:46→17:27)
--- NOTE | 2018-07-14 14:41 | CON ---
Copied To: Chris Harding MD Attending MD: Chris Harding MD DATE: 07/14/2018 INPATIENT CONSULT REASON FOR CONSULT: Left upper extremity swelling and gout. HISTORY OF PRESENT ILLNESS: This is a 52-year-old gentleman who presented with a couple day history of left upper extremity swelling and pain. The patient states that he has a history of gout and has had a previous episode in the left upper extremity in the past. Since he was admitted for CHF exacerbation, the patient was started on colchicine and oral prednisone and he states that his hand is feeling better and he is able to move it more. He denies any history of trauma whatsoever. He denies any numbness or tingling. Just pain. PHYSICAL EXAMINATION: GENERAL: This is a morbidly obese gentleman, in no apparent distress. He is awake, alert and oriented x3. EXTREMITIES: Evaluation of the left upper extremity shows he has some mild to moderate swelling about the left forearm and wrist and hand. No areas of fluctuance is appreciated. His skin is intact. He has no significant tenderness to forearm with palpation. He does have some radial-sided tenderness over the wrist to palpation. He is nontender over his hand. On range of motion, he has pain with active forearm pronation and supination. Passively, he does not have any pain. He has no pain with active or passive flexion of the elbow. He has some mild loss of wrist extension secondary to pain and is almost able to fully make a fist. Grossly, he is neurovascularly intact. Good capillary refill in all his fingers. LABORATORY DATA: X-rays of the left forearm and left hand showed no acute fractures or dislocations. No significant degenerative changes are noted. IMPRESSION: Left upper extremity gout exacerbation. PLAN: At this point, given that the patient is on colchicine and prednisone, I recommended that continue this current course for now and let him do his activities as tolerated as his symptoms improve. The patient does state that he is on two maintenance medications, one being Uloric and he does not recall the other one and he is going to be instructed to continue doing so. For now, we will follow. Chris Harding MD [facility] # [id number]
--- NOTE | 2018-07-14 14:54 | US ---
Date of service: 07/14/2018 PROCEDURE: Urinary bladder ultrasound HISTORY: SUSAN. please assess for PVR as well COMPARISON: 12/21/2017. Ultrasound urinary bladder TECHNIQUE: Standard protocol for this study/examination. FINDINGS: Urinary bladder assessment: Prevoid volume: 441.32 ml Postvoid residual: 0.0 ml Intrinsic, mural, perivesical abnormalities: None Ureteral jets: Documented on the left. Not visible on the right. IMPRESSION: Normal capacitance bladder. No bladder wall or intraluminal S abnormalities. No postvoid residual.
[2018-07-14] MEDS ORDERED: Potassium Chloride 20 mEq ER Tab PO ONE (15:21)
[2018-07-14 15:37] LABS: COMPLEMENT C4 37.5 mg/dL (14.0-44.0)
--- NOTE | 2018-07-14 15:50 | US ---
HISTORY: Leg pain and swelling. Evaluate for DVT PHYSICIAN(S): Tarik Cuellar MD. TECHNIQUE: Duplex sonography and color-flow Doppler with graded compression were used to evaluate the deep venous systems of both lower extremities. The exam is very limited by body habitus and edema. The lower femoral veins and tibial veins are not adequately seen. FINDINGS: The visualized deep venous systems of both lower extremities are sonographically normal and compressible. Normal wave forms and augmentation are seen. There is no sonographic evidence for deep venous thrombosis in the visualized segments of both lower extremities. IMPRESSION: No sonographic evidence for deep venous thrombosis in the visualized segments of both lower extremities. Very limited study
--- NOTE | 2018-07-14 15:50 | US ---
PROCEDURE: Upper extremity venous ultrasound HISTORY: Arm pain and swelling. Evaluate for deep venous thrombosis. PHYSICIAN(S): Tarik Cuellar MD. FINDINGS: The exam is limited by body habitus and edema The visualized leftinternal jugular vein is sonographically normal and compressible. No evidence of obstruction or thrombus is seen. The visualized segments of the left subclavian vein are patent with normal waveforms. No sonographic evidence of obstruction or thrombosis is seen. The visualized deep venous system of the proximal leftupper extremity is sonographically normal and compressible. IMPRESSION: 1. No sonographic evidence for deep venous thrombosis in the visualized segments of the left upper extremity. 2. Limited study
[2018-07-14 16:00] LABS: HEPATITIS B SURFACE AG Negative (NEGATIVE)
[2018-07-14 16:05] LABS: HEPATITIS B CORE AB NEGATIVE (NEGATIVE)
--- NOTE | 2018-07-14 16:10 | US ---
PROCEDURE: Bilateral renal vein duplex ultrasound CLINICAL HISTORY: Evaluate for renal vein thrombosis. PHYSICIAN(S): Tarik Cuellar M.D. TECHNIQUE: Duplex sonography and color-flow Doppler was used to evaluate renal veins bilaterally FINDINGS: The exam is extremely limited due to body habitus. The right kidney measures 11.1 cm in length and the left kidney measures 11.7 cm in length No hydronephrosis is appreciated. Limited images of the main renal veins are patent bilaterally. IMPRESSION: 1. Very limited study. 2. The visualized main renal veins are patent bilaterally. 3. No hydronephrosis.
[2018-07-14 16:11] LABS: HIV 1&2 ANTIBODY NEGATIVE (NEGATIVE)
--- NOTE | 2018-07-14 16:35 | CP.PCM.CON ---
History of Present Illness - History of Present Illness History of Present Illness: Nephrology Consultation Note: Assessment: Stable Acute Kidney Injury (N17.9) likely cardio-renal and hemodynamic Diabetic chronic Kidney Disease (E11.22)/Hypertensive Chronic Kidney Disease ( I12.9) Chronic Kidney Disease (N18.2) Stage 3 with ? mg proteinuria (R80.9) Anemia (D64.9), HTN (I12.9) morbid obesity, fluid overload moderate pulm HTN, diastolic CHF KENDALL, chronic respi acidosis with metabolic compensation Plan No acute need for renal replacement therapy at this time. Hypertension control with meds as ordered. Patient not on ACEI/ARB due to SUSAN Monitor Input/Output, daily weights and renal function with basic metabolic panel continue with diuresis with lasix 80 bid and metolazone 5 bid. oral fluid restriction to 1000 mL/day supplement electrolytes as needed started Fe and MVI check ABG to asses acid-base status Check urine analysis, spot protein/creatinine and albumin/creatinine ratio anemia work up, Hep B/C/HIV serology, vit D/PTH/Phos level once off steroids for few weeks, consider checking for hypercortisolism as outpt Dose meds/antibiotics for reduced GFR. Avoid fleets enema/magnesium based laxatives. Avoid nephrotoxins/NSAIDs/ iodinated contrast (unless needed emergently) Glycemic control Further work up/management as per primary team weight loss, lifestyle modifications, diet/exercise needed Thanks for allowing me to participate in care of your patient. Will follow patient with you. Please call if any Qs. had d/w team Dr Miquel Vega Office: [phone] Chief Complaint; legs swelling and abdomen distension reason for consult: SUSAN and CKD HPI: Pt is a 52 M with hx of diabetes Mellitus (10 years) without known retinopathy, hypertension (many years) morbid obesity, episodes of SUSAN since 2002 with peaked cr 2.0 and baseline close to 1.5-2.0 since 2018, CKD 3, KENDALL not on CPAP presented with complaints of worsening leg swelling and abdomen distension over last few weeks. pt also c/o left arm swelling and gout flare says had gained 170 pounds over last 1 month although he is following diet control. Denies OTC/herbal meds or NSAIDs No recent iodinated contrast exposure. No obvious episodes of low BP. ROS: Cardiovascular: No chest pain. Pulmonary: c/o shortness of breath on exertion Gastrointestinal: denies abdominal pain No nausea. No vomiting. but c/o abdomen distension with superficial skin discoloration Genitourinary: No pain while urinating. Denies blood in urine. no symptoms of BPH All other negative Physical Examination: General Appearance: Comfortable, in no acute respiratory distress, co-operative . morbid obesity Vitals reviewed and noted as below Head; Atraumatic, normocephalic ENT: no ulcers no thrush. Tongue is midline. Oropharynx: no rash or ulcers. EYES: Pupils are equal, round and reactive to light accommodation. Eye muscles and extraocular movement intact. Sclera is anicteric. Neck; supple no lymphadenopathy, no thyromegaly or bruit Lungs: Normal respiratory rate/effort. Breath sounds bilateral decreased at bases Heart: Normal rate. s1s2 normal. No rub or gallop. Extremities: 2-3+ edema. No varicose veins Neurological: Patient is alert, awake and oriented to person, place and time. No focal deficit. Strength bilateral appropriate and equal Skin: Warm and dry. Normal turgor. No rash. Palpitation: Normal elasticity for age Abdomen: Abdomen is soft. Bowel sounds +. There is no abdominal tenderness, no guarding/rigidity no organomegaly. abdomen wall edema + very distended hence exam limited Psych: normal insight and normal affect/mood MSK: no joint tenderness or swelling. Digits and nails normal, no deformity : kidney or bladder not palpable but exam limited due to obesity Labs/imaging reviewed. Past medical history, past surgical history, family history, social history, allergy reviewed and noted as below Family hx: no hx of CKD. Rest non-contributory echo moderate pulm HTN renal sono with doppler and bladder sono: WNL kappa/lambda WNL and SPEP/VINCE neg c3/c4 normal Past Patient History - Infectious Disease Hx of Infectious Diseases: None - Tetanus Immunizations Tetanus Immunization: Unknown - Past Medical History & Family History Past Medical History?: Yes - Past Social History Smoking Status: Never Smoked Alcohol: None Drugs: Denies - CARDIAC Hx Cardiac Disorders: Yes Hx Hypertension: Yes - PULMONARY Hx Respiratory Disorders: No - NEUROLOGICAL Hx Neurological Disorder: No - HEENT Hx HEENT Problems: No - RENAL Hx Chronic Kidney Disease: No - ENDOCRINE/METABOLIC Hx Endocrine Disorders: Yes Hx Diabetes Mellitus Type 2: Yes - HEMATOLOGICAL/ONCOLOGICAL Hx Blood Disorders: No - INTEGUMENTARY Hx Dermatological Problems: No - MUSCULOSKELETAL/RHEUMATOLOGICAL Hx Musculoskeletal Disorders: Yes Hx Arthritis: Yes Hx Falls: No - GASTROINTESTINAL Hx Gastrointestinal Disorders: No - GENITOURINARY/GYNECOLOGICAL Hx Genitourinary Disorders: No - PSYCHIATRIC Hx Psychophysiologic Disorder: No Hx Substance Use: No - SURGICAL HISTORY Hx Coronary Stent: Yes Other/Comment: Right knee replacement - ANESTHESIA Hx Anesthesia Reactions: No Hx Malignant Hyperthermia: No Meds Allergies/Adverse Reactions: Allergies Allergy/AdvReac Type Severity Reaction Status Date / Time aspirin Allergy ANAPHYLAXIS Verified 12/20/17 15:35 - Medications Medications: Current Medications Clonidine HCl (Catapres) 0.1 mg PO BID [facility] Last Admin: 07/14/18 09:21 Dose: 0.1 mg Clopidogrel Bisulfate (Plavix) 75 mg PO DAILY [facility] Last Admin: 07/14/18 09:21 Dose: 75 mg Colchicine (Colocrys) 0.6 mg PO TID PRN PRN Reason: Pain, Mild (1-3) Last Admin: 07/14/18 01:33 Dose: 0.6 mg Dextrose (Dextrose 50% Inj) 0 ml IV STAT PRN; Protocol PRN Reason: Hypoglycemia Protocol Ferrous Gluconate (Fergon) 324 mg PO TID [facility] Last Admin: 07/14/18 13:45 Dose: 324 mg Furosemide (Lasix) 40 mg IVP TID [facility] Last Admin: 07/14/18 13:47 Dose: 40 mg Dextrose (Dextrose 5% In Water 1000 Ml) 1,000 mls @ 0 mls/hr IV .Q0M PRN; Protocol; Per Protocol PRN Reason: Hypoglycemia Protocol Insulin Detemir (Levemir) 50 unit SC BID [facility] Insulin Human Lispro (Humalog High) 0 units SC ACHS [facility] PRN Reason: Protocol Last Admin: 07/14/18 13:45 Dose: 2 units Insulin Human Lispro (Humalog) 20 units SC AC [facility] Last Admin: 07/14/18 13:46 Dose: 20 units Metolazone (Zaroxolyn) 5 mg PO DAILY [facility] Last Admin: 07/14/18 09:20 Dose: 5 mg Metoprolol Tartrate (Lopressor) 25 mg PO BID [facility] Non-Formulary Medication (Desloratadine [Clarinex]) 5 mg PO DAILY [facility] Last Admin: 07/14/18 10:52 Dose: Not Given Non-Formulary Medication (Febuxostat [Uloric]) 80 mg PO DAILY [facility] Last Admin: 07/14/18 10:52 Dose: Not Given Non-Formulary Medication (Nebivolol [Bystolic]) 10 mg PO DAILY [facility] Last Admin: 07/14/18 10:53 Dose: Not Given Prednisone (Prednisone Tab) 30 mg PO DAILY [facility] Last Admin: 07/14/18 09:20 Dose: 30 mg Vitamin B Complex/Vit C/Folic Acid (Nephro-Juan) 1 tab PO 0800 [facility] Results - Vital Signs Recent Vital Signs: Last Vital Signs Temp 97.5 F L 07/14/18 12:00 Pulse 73 07/14/18 14:00 Resp 20 07/14/18 12:00 BP 137/83 07/14/18 13:47 Pulse Ox 97 07/14/18 06:00 - Labs Result Diagrams: 07/14/18 05:20 07/14/18 05:20 Labs: Laboratory Results - last 24 hr 07/14/18 16:13 POC Glucose (mg/dL) 77
--- NOTE | 2018-07-14 17:15 | CARD ---
APPROVED REPORT Date of service: 07/14/2018 EXAM: Two-dimensional and M-mode echocardiogram with Doppler and color Doppler. INDICATION EVALUATE LVFX 2D DIMENSIONS Left Atrium (2D)5.7 (1.6-4.0cm)IVSd1.6 (0.7-1.1cm) LVDd4.9 (3.9-5.9cm)PWd1.9 (0.7-1.1cm) LVEF (%)20.0 (>50%) Aortic Valve AoV Peak Cjeizwbg470.0cm/Marian Peak GR.5mmHg Mitral Valve E/A ratio0.0 TDI E/Lateral E'0.0E/Medial E'0.0 Tricuspid Valve TR Peak [id number] [id number] Peak Gr.26mmHg [id number] LEFT VENTRICLE The Left Ventricle is borderline dilated. There is normal left ventricular wall thickness. The systolic function is severely impaired. There is global hypokinesis of the left ventricle. The left ventricular diastolic function is normal. RIGHT VENTRICLE The right ventricle is mildly dilated. There is normal right ventricular wall thickness. RV Systolic function is moderately reduced. ATRIA The left atrium is moderately dilated. The right atrium is mildly dilated. AORTIC VALVE The aortic valve is not well visualized. No aortic regurgitation is present. There is no aortic valvular stenosis. MITRAL VALVE The mitral valve is mildly thickened. Mitral regurgitation is moderate. TRICUSPID VALVE The tricuspid valve is normal in structure. There is mild pulmonary hypertension. There is mild tricuspid regurgitation. PULMONIC VALVE The pulmonary valve is normal in structure. There is mild pulmonic valvular regurgitation. GREAT VESSELS The aortic root is normal in size. PERICARDIAL EFFUSION There is no pericardial effusion. <Conclusion> The Left Ventricle is borderline dilated. There is normal left ventricular wall thickness. The systolic function is severely impaired. There is global hypokinesis of the left ventricle. Mitral regurgitation is moderate. There is mild pulmonary hypertension.
[2018-07-14] MEDS: metOLazone 5 MG TAB PO SCH (18:23)
[2018-07-14] MEDS: Insulin Detemir 100 units/ml Vial (Levemir) SC SCH (18:26)
[2018-07-14 19:22] LABS: HEPATITIS C ANTIBODY REACTIVE (NEGATIVE)
[2018-07-15 07:10] LABS: BASO # 0.01 K/mm3 (0.0-2.0); BASO % 0.2 % (0.0-3.0); EOS # 0.1 (0.0-0.7); EOS % 0.9 % (1.5-5.0); GRAN # 2.51 (1.4-6.5); GRAN % 46.8 % (50.0-68.0); HEMOGLOBIN 10.8 g/dL (14.0-18.0); LYMPH # 2.1 (1.2-3.4); LYMPH % 39.2 % (22.0-35.0); MEAN CELL VOLUME 96.7 fl (80.0-105.0); MEAN CORPUSCULAR HEMOGLOBIN 32.4 pg (25.0-35.0); MEAN CORPUSCULAR HGB CONC 33.5 g/dl (31.0-37.0); MEAN PLATELET VOLUME 10.7 fl (7.0-11.0); MONO # 0.7 (0.1-0.6); MONO % 12.9 % (1.0-6.0); RBC 3.33 10^6/uL (3.5-6.1); RED CELL DISTRIBUTION WIDTH 12.7 % (11.5-14.5); WHITE BLOOD COUNT 5.4 10^3/ul (4.5-11.0)
[2018-07-15 07:27] LABS: ALB/GLOB RATIO 0.8 (1.1-1.8); ALBUMIN 3.2 g/dL (3.0-4.8); CALCIUM 8.9 mg/dL (8.4-10.5)
[2018-07-15] MEDS: Insulin Lispro 1 UNITS/0.01 ML SC SCH ×3 (08:29→17:45)
[2018-07-15] MEDS: Insulin Lispro (HUMAlog) HIGH Coverage SC SCH ×4 (08:29→22:07)
[2018-07-15] MEDS ORDERED: Potassium Chloride 40 mEq/30 ml LIQ UD PO ONE (08:44)
[2018-07-15] MEDS: Insulin Detemir 100 units/ml Vial (Levemir) SC SCH ×2 (09:11→19:23)
[2018-07-15] MEDS: Multivitamin Vitamin B Complex (Nephro-Vite) Tab PO SCH (09:26)
[2018-07-15] MEDS: metOLazone 5 MG TAB PO SCH ×2 (09:27→17:46)
[2018-07-15] MEDS: DESLORATADINE 5 MG PO SCH (09:28)
[2018-07-15] MEDS ORDERED: Potassium Chloride 20 mEq ER Tab PO ONE (10:09)
[2018-07-15] MEDS: Milrinone 20mg/100ml D5W 100 ML IV PRN ×2 (10:58→17:59)
[2018-07-15] MEDS ORDERED: Ergocalciferol 50,000 Intl Units Cap PO SCH (13:15)
--- NOTE | 2018-07-15 13:15 | CP.PCM.PN ---
Subjective - Date & Time of Evaluation Date of Evaluation: 07/15/18 Time of Evaluation: 13:08 - Subjective Subjective: Assessment: Stable Acute Kidney Injury (N17.9) likely cardio-renal and hemodynamic Diabetic chronic Kidney Disease (E11.22)/Hypertensive Chronic Kidney Disease ( I12.9) Chronic Kidney Disease (N18.2) Stage 3 with ? mg proteinuria (R80.9) Anemia (D64.9), HTN (I12.9) morbid obesity, fluid overload moderate pulm HTN, diastolic CHF KENDALL, chronic respi acidosis with metabolic compensation Plan No acute need for renal replacement therapy at this time. Hypertension control with meds as ordered. Patient not on ACEI/ARB due to SUSAN Renal function tolerating diuretics made > 2 L uop. can continue diuretic regimen supplement electrolytes as needed continue iron given elevated bicarb and possible component of chronic CO2 retention - recc check abg to better understand acid base status awaiting UPCR Check urine analysis, spot protein/creatinine and albumin/creatinine ratio will start vitamin d for undetectably low vitamin d recc reduce colcrys 0.6 q day S: seen and examined feels mildly improved Physical Examination: General Appearance: Comfortable, in no acute respiratory distress, co-operative . morbid obesity Vitals reviewed and noted as below Head; Atraumatic, normocephalic ENT: no ulcers no thrush. Tongue is midline. Oropharynx: no rash or ulcers. EYES: Pupils are equal, round and reactive to light accommodation. Eye muscles and extraocular movement intact. Sclera is anicteric. Neck; supple no lymphadenopathy, no thyromegaly or bruit Lungs: Normal respiratory rate/effort. Breath sounds bilateral decreased at bases Heart: Normal rate. s1s2 normal. No rub or gallop. Extremities: 2-3+ edema. No varicose veins Neurological: Patient is alert, awake and oriented to person, place and time. No focal deficit. Strength bilateral appropriate and equal Skin: Warm and dry. Normal turgor. No rash. Palpitation: Normal elasticity for age Abdomen: Abdomen is soft. Bowel sounds +. There is no abdominal tenderness, no guarding/rigidity no organomegaly. abdomen wall edema Psych: normal insight and normal affect/mood MSK: no joint tenderness or swelling. Digits and nails normal, no deformity : kidney or bladder not palpable but exam limited due to obesity Objective - Vital Signs/Intake and Output Vital Signs (last 24 hours): Temp Pulse Resp BP Pulse Ox 98 F 65 18 138/68 99 07/15/18 12:00 07/15/18 12:00 07/15/18 12:00 07/15/18 12:00 07/15/18 06:00 Intake and Output: 07/15/18 07/15/18 06:59 18:59 Intake Total 240 Output Total 1100 Balance -860 - Medications Medications: Current Medications Amiodarone HCl (Cordarone) 200 mg PO DAILY [facility] Last Admin: 07/15/18 10:57 Dose: 200 mg Clonidine HCl (Catapres) 0.1 mg PO BID [facility] Last Admin: 07/15/18 09:27 Dose: 0.1 mg Clopidogrel Bisulfate (Plavix) 75 mg PO DAILY [facility] Last Admin: 07/15/18 09:26 Dose: 75 mg Colchicine (Colocrys) 0.6 mg PO TID PRN PRN Reason: Pain, Mild (1-3) Last Admin: 07/14/18 01:33 Dose: 0.6 mg Dextrose (Dextrose 50% Inj) 0 ml IV STAT PRN; Protocol PRN Reason: Hypoglycemia Protocol Ferrous Gluconate (Fergon) 324 mg PO TID [facility] Last Admin: 07/15/18 09:27 Dose: 324 mg Furosemide (Lasix) 80 mg IVP BID [facility] Last Admin: 07/15/18 09:26 Dose: 80 mg Dextrose (Dextrose 5% In Water 1000 Ml) 1,000 mls @ 0 mls/hr IV .Q0M PRN; Protocol; Per Protocol PRN Reason: Hypoglycemia Protocol Milrinone Lactate/Dextrose (Primacor 20mg/100ml D5w) 100 mls @ 11.539 mls/hr IV .Q8H40M PRN; Protocol; 0.2 MCG/KG/MIN PRN Reason: TITRATE PER MD ORDER Stop: 07/17/18 07:00 Last Admin: 07/15/18 10:58 Dose: 0.2 mcg/kg/min, 11.539 mls/hr Insulin Detemir (Levemir) 50 unit SC BID [facility] Last Admin: 07/15/18 09:11 Dose: Not Given Insulin Human Lispro (Humalog High) 0 units SC ACHS [facility] PRN Reason: Protocol Last Admin: 07/15/18 08:29 Dose: Not Given Insulin Human Lispro (Humalog) 20 units SC [facility] Last Admin: 07/15/18 08:29 Dose: Not Given Metolazone (Zaroxolyn) 5 mg PO BID [facility] Stop: 07/17/18 18:01 Last Admin: 07/15/18 09:27 Dose: 5 mg Metoprolol Tartrate (Lopressor) 25 mg PO BID [facility] Last Admin: 07/15/18 09:27 Dose: 25 mg Non-Formulary Medication (Desloratadine [Clarinex]) 5 mg PO DAILY [facility] Last Admin: 07/15/18 09:28 Dose: Not Given Non-Formulary Medication (Febuxostat [Uloric]) 80 mg PO DAILY [facility] Last Admin: 07/15/18 09:28 Dose: Not Given Non-Formulary Medication (Nebivolol [Bystolic]) 10 mg PO DAILY [facility] Last Admin: 07/14/18 10:53 Dose: Not Given Prednisone (Prednisone Tab) 30 mg PO DAILY [facility] Last Admin: 07/15/18 09:27 Dose: 30 mg Spironolactone (Aldactone) 25 mg PO BID [facility] Last Admin: 07/15/18 10:57 Dose: 25 mg Vitamin B Complex/Vit C/Folic Acid (Nephro-Juan) 1 tab PO 0800 [facility] Last Admin: 07/15/18 09:26 Dose: 1 tab - Labs Labs: 07/15/18 06:00 07/15/18 06:00
--- NOTE | 2018-07-15 13:56 | PN ---
Copied To: Vamshi Ojeda MD Attending MD: Vamshi Ojeda MD DATE: 07/15/2018 REASON FOR THE CONSULTATION AND FOLLOWUP: Acute decompensated congestive heart failure, [id number] systolic dysfunction. REASON FOR DICTATION: Covering Dr. Tarik Spring. SUBJECTIVE: The patient denies any chest pain, shortness of breath, but complaining of gain of more than 100 pounds over a period of 1 year. OBJECTIVE: GENERAL: Mild shortness of breath, sitting on the chair. VITAL SIGNS: Temperature afebrile, heart rate 54, blood pressure 130/59. HEENT: PERRLA, intact. NECK: Supple. No carotid bruit or thyromegaly. CHEST: Clear to auscultation. HEART: S1, S2 regular. ABDOMEN: Soft. EXTREMITIES: Clubbing and cyanosis negative. LABORATORY DATA: Blood workup as follows: WBC 5.5, hemoglobin 10.8, hematocrit 32.2, platelet count 287. Chemistry shows sodium 140, potassium 3.4, chloride 96, carbon dioxide 37, anion gap of 11, BUN 53, creatinine 2.2. Troponin 0.07. IMPRESSION: This is a 52-year-old male with a past medical history significant for coronary artery disease, status post stent to circumflex, status post percutaneous transluminal angioplasty of the circumflex 7 years ago, [address] Spring; history of diabetes; hyperlipidemia;, morbid obesity; gained 50 to 100 pounds of weight over a period of six months to year; right-sided congestive heart failure with pedal edema, pulmonary hypertension, diabetes, hypertension, systemic and dyspnea. The patient had echocardiography done yesterday that revealed left ventricle is function borderline dilated, thickness normal, left ventricular systolic function is severely reduced, global hypokinesis of the left ventricle, mitral regurgitation moderate, mild tricuspid regurgitation, right ventricular systolic pressure of 36. RECOMMENDATIONS: Aggressively supplement potassium as needed, aggressively supplement electrolytes as needed. We will start low dose of Primacor for 48 hours, the patient will get the benefit and get more diuresis, avoid nephrotoxic medications. Lasix has been increased to 50 b.i.d. We will give 1 dose of Zaroxolyn. Zaroxolyn also is started by Dr. Vega. We will follow with you. Because of the decreased left ventricular function, we will start amiodarone as well. Left ventricular function reported by Dr. Camacho severely decreased, calculated ejection fraction 20%. The patient will get the benefit from 24 to 48 hours of Primacor, continue aggressive diuresis, supplement electrolytes. We will add spironolactone as well. We will repeat the blood workup in the morning. We will transfer care to Dr. Spring on Tuesday. We will put amiodarone because of the VT. We will put low dose of Coreg as well. Avoid nephrotoxic medications. The patient is already on beta mt, metoprolol, leave metoprolol on and not on DARWIN inhibitor because of renal insufficiency. We will repeat the blood workup in the morning. Thank you, Dr. Carrillo, for providing us the opportunity in taking care of the patient, Julián Aguilar. Vamshi Ojeda MD
--- NOTE | 2018-07-15 15:13 | CP.PCM.PN ---
<Rasta Weaver - Last Filed: 07/15/18 15:08> Subjective - Date & Time of Evaluation Date of Evaluation: 07/15/18 Time of Evaluation: 15:08 - Subjective Subjective: Rasta Weaver D.O PGY-1, Internal Medicine progress note for Dr. Carrillo Patient was examined at bedside, no acute overnight events. Patient is complaining of left arm pain. Denies fevers, chills, chest pain, shortness of breath, abdominal pain, N/V/D. Objective - Vital Signs/Intake and Output Vital Signs (last 24 hours): Temp Pulse Resp BP Pulse Ox 98 F 65 18 138/68 99 07/15/18 12:00 07/15/18 12:00 07/15/18 12:00 07/15/18 12:00 07/15/18 06:00 Intake and Output: 07/15/18 07/15/18 06:59 18:59 Intake Total 240 Output Total 1100 Balance -860 - Medications Medications: Current Medications Amiodarone HCl (Cordarone) 200 mg PO DAILY [facility] Last Admin: 07/15/18 10:57 Dose: 200 mg Clonidine HCl (Catapres) 0.1 mg PO BID [facility] Last Admin: 07/15/18 09:27 Dose: 0.1 mg Clopidogrel Bisulfate (Plavix) 75 mg PO DAILY [facility] Last Admin: 07/15/18 09:26 Dose: 75 mg Colchicine (Colocrys) 0.6 mg PO TID PRN PRN Reason: Pain, Mild (1-3) Last Admin: 07/14/18 01:33 Dose: 0.6 mg Dextrose (Dextrose 50% Inj) 0 ml IV STAT PRN; Protocol PRN Reason: Hypoglycemia Protocol Ergocalciferol (Drisdol 50,000 Intl Units Cap) 1 cap PO Q7D [facility] Ferrous Gluconate (Fergon) 324 mg PO TID [facility] Last Admin: 07/15/18 09:27 Dose: 324 mg Furosemide (Lasix) 80 mg IVP BID [facility] Last Admin: 07/15/18 09:26 Dose: 80 mg Dextrose (Dextrose 5% In Water 1000 Ml) 1,000 mls @ 0 mls/hr IV .Q0M PRN; Protocol; Per Protocol PRN Reason: Hypoglycemia Protocol Milrinone Lactate/Dextrose (Primacor 20mg/100ml D5w) 100 mls @ 11.539 mls/hr IV .Q8H40M PRN; Protocol; 0.2 MCG/KG/MIN PRN Reason: TITRATE PER MD ORDER Stop: 07/17/18 07:00 Last Admin: 07/15/18 10:58 Dose: 0.2 mcg/kg/min, 11.539 mls/hr Insulin Detemir (Levemir) 50 unit SC BID [facility] Last Admin: 07/15/18 09:11 Dose: Not Given Insulin Human Lispro (Humalog High) 0 units SC ACHS [facility] PRN Reason: Protocol Last Admin: 07/15/18 13:18 Dose: 2 units Insulin Human Lispro (Humalog) 20 units SC AC [facility] Last Admin: 07/15/18 13:17 Dose: 20 units Metolazone (Zaroxolyn) 5 mg PO BID [facility] Stop: 07/17/18 18:01 Last Admin: 07/15/18 09:27 Dose: 5 mg Metoprolol Tartrate (Lopressor) 25 mg PO BID [facility] Last Admin: 07/15/18 09:27 Dose: 25 mg Non-Formulary Medication (Desloratadine [Clarinex]) 5 mg PO DAILY [facility] Last Admin: 07/15/18 09:28 Dose: Not Given Non-Formulary Medication (Febuxostat [Uloric]) 80 mg PO DAILY [facility] Last Admin: 07/15/18 09:28 Dose: Not Given Non-Formulary Medication (Nebivolol [Bystolic]) 10 mg PO DAILY [facility] Last Admin: 07/14/18 10:53 Dose: Not Given Prednisone (Prednisone Tab) 30 mg PO DAILY [facility] Last Admin: 07/15/18 09:27 Dose: 30 mg Spironolactone (Aldactone) 25 mg PO BID [facility] Last Admin: 07/15/18 10:57 Dose: 25 mg Vitamin B Complex/Vit C/Folic Acid (Nephro-Juan) 1 tab PO 0800 [facility] Last Admin: 07/15/18 09:26 Dose: 1 tab - Labs Labs: 07/15/18 06:00 07/15/18 06:00 - Constitutional Appears: No Acute Distress - Head Exam Head Exam: NORMAL INSPECTION - Eye Exam Eye Exam: Normal appearance - ENT Exam ENT Exam: Mucous Membranes Moist - Respiratory Exam Respiratory Exam: Clear to Ausculation Bilateral. absent: Rales, Rhonchi, Wheezes, Respiratory Distress - Cardiovascular Exam Cardiovascular Exam: REGULAR RHYTHM, +S1, +S2. absent: Gallop, Rubs, Murmur - GI/Abdominal Exam GI & Abdominal Exam: Distended, Firm, Normal Bowel Sounds. absent: Tenderness Additional comments: significant pitting edema on the abdomen - Extremities Exam Extremities Exam: Pedal Edema. absent: Calf Tenderness Additional comments: +3 pitting edema on bilateral lower extremities - Neurological Exam Neurological Exam: Alert, Awake, Oriented x3 - Psychiatric Exam Psychiatric exam: Normal Affect, Normal Mood - Skin Skin Exam: Dry, Intact, Warm Assessment and Plan - Assessment and Plan (Free Text) Assessment: 52 year old male with past medical history of CHF, CKD (Stage III), recurrent UTI's, CAD s/p stent placement, DM, KENDALL (not on CPAP), gout and osteoarthritis who presents with progressively worsening edema of the lower extremities and abdomen over the past 12 months as well as pain associated wtih gouty arthritis flare. Plan: Anasarca - 2/2 Nephrotic syndrome vs CHF exacerbation vs Venous insufficiency vs hepatic etiologies - CXR: no change in cardiomegaly; pulmonary congestion - C/w Lasix IV 80mg IVP BID and Metalozone 5mg BID - UA - proteinuria - Urine studies ordered; will follow up - Echocardiogram; LVEF 20% - Strict IO + Daily weight - Abdominal US - mild hepatomegaly, possible hepatic steatosis; inflammatory/ infectious etiologies cannot be excluded; - UE/LE US: No DVT - Cardiology Consulted - Dr. Spring - Nephrology Consulted - Dr. Vega SUSAN in setting of CKD III - Pre-renal SUSAN - Baseline Cr 1.6; BUN/ Cr 53/ 2.2 this AM - Proteinuria, Glucosuria, and Moderate blood in UA - Estimated Urinary Protein Excretion: 5.7g/day - Continue monitoring Cr - Renal ultrasound: Renal veins patent bilaterally, no hydronephrosis - Bladder ultrasound: wnl - Nephrology Following - Dr. Vega Hypokalemia - Repleted - Mg level ordered - Will continue to monitor Gout flare - Etiology: Chronic gout likely secondary to CKD vs. diet - Continue colchicine - Continue febuxostat - Oral prednisone 30mg Daily - Avoiding NSAIDS secondary to CKD status - Forearm xray - Forearm swelling; no osseous abnormality - Hand xray - Soft tissue swelling w/o osseous abnormality; punctate foreign bodies within soft tissues - Possible steroid injection ortho consulted - Ortho consulted - Dr. Harding Hx of CAD s/p stent placement - Plavix 75 QD - Cardiology consulted DM2 - Levamir 50 BID - Humalog 20 AC - ISS High protocol - Accucheck ACHS - A1C 9.6 - Carb consistent diet - Nutrition referral Hx Hypertension - Clonidine - 0.1 BID - Bystolic - 10mg QD DVT ppx - SCDs Patient was seen, examined, and discussed at bedside w/ Attending physician Dr. Carrillo <Dread Carrillo - Last Filed: 07/16/18 08:03> Objective - Vital Signs/Intake and Output Vital Signs (last 24 hours): Temp Pulse Resp BP Pulse Ox 98 F 81 20 145/73 94 L 07/16/18 06:00 07/16/18 06:00 07/16/18 06:00 07/16/18 06:00 07/16/18 06:00 Intake and Output: 07/16/18 07/16/18 06:59 18:59 Intake Total 518 Output Total 600 Balance -82 - Medications Medications: Current Medications Amiodarone HCl (Cordarone) 200 mg PO DAILY [facility] Last Admin: 07/15/18 10:57 Dose: 200 mg Clonidine HCl (Catapres) 0.1 mg PO BID [facility] Last Admin: 07/15/18 17:47 Dose: 0.1 mg Clopidogrel Bisulfate (Plavix) 75 mg PO DAILY [facility] Last Admin: 07/15/18 09:26 Dose: 75 mg Colchicine (Colocrys) 0.6 mg PO TID PRN PRN Reason: Pain, Mild (1-3) Last Admin: 07/15/18 18:04 Dose: 0.6 mg Dextrose (Dextrose 50% Inj) 0 ml IV STAT PRN; Protocol PRN Reason: Hypoglycemia Protocol Ergocalciferol (Drisdol 50,000 Intl Units Cap) 1 cap PO Q7D [facility] Last Admin: 07/15/18 15:56 Dose: 1 cap Ferrous Gluconate (Fergon) 324 mg PO TID [facility] Last Admin: 07/15/18 19:23 Dose: 324 mg Furosemide (Lasix) 80 mg IVP BID [facility] Last Admin: 07/15/18 17:45 Dose: 80 mg Dextrose (Dextrose 5% In Water 1000 Ml) 1,000 mls @ 0 mls/hr IV .Q0M PRN; Protocol; Per Protocol PRN Reason: Hypoglycemia Protocol Milrinone Lactate/Dextrose (Primacor 20mg/100ml D5w) 100 mls @ 11.539 mls/hr IV .Q8H40M PRN; Protocol; 0.2 MCG/KG/MIN PRN Reason: TITRATE PER MD ORDER Stop: 07/17/18 07:00 Last Admin: 07/16/18 01:47 Dose: 0.2 mcg/kg/min, 11.539 mls/hr Insulin Detemir (Levemir) 50 unit SC BID [facility] Last Admin: 07/15/18 19:23 Dose: 50 units Insulin Human Lispro (Humalog High) 0 units SC ACHS [facility] PRN Reason: Protocol Last Admin: 07/15/18 22:07 Dose: Not Given Insulin Human Lispro (Humalog) 20 units SC AC [facility] Last Admin: 07/15/18 17:45 Dose: 20 units Metolazone (Zaroxolyn) 5 mg PO BID [facility] Stop: 07/17/18 18:01 Last Admin: 07/15/18 17:46 Dose: 5 mg Metoprolol Tartrate (Lopressor) 25 mg PO BID [facility] Last Admin: 07/15/18 17:46 Dose: 25 mg Non-Formulary Medication (Desloratadine [Clarinex]) 5 mg PO DAILY [facility] Last Admin: 07/15/18 09:28 Dose: Not Given Non-Formulary Medication (Febuxostat [Uloric]) 80 mg PO DAILY [facility] Last Admin: 07/15/18 09:28 Dose: Not Given Non-Formulary Medication (Nebivolol [Bystolic]) 10 mg PO DAILY [facility] Last Admin: 07/14/18 10:53 Dose: Not Given Prednisone (Prednisone Tab) 30 mg PO DAILY [facility] Last Admin: 07/15/18 09:27 Dose: 30 mg Spironolactone (Aldactone) 25 mg PO BID [facility] Last Admin: 07/15/18 17:46 Dose: 25 mg Vitamin B Complex/Vit C/Folic Acid (Nephro-Juan) 1 tab PO 0800 [facility] Last Admin: 07/15/18 09:26 Dose: 1 tab - Labs Labs: 07/16/18 06:00 07/15/18 06:00 Attending/Attestation - Attestation I have personally seen and examined this patient.: Yes I have fully participated in the care of the patient.: Yes I have reviewed all pertinent clinical information, including history, physical exam and plan: Yes Notes (Text): 07/15/18 52 year old male with past medical history of CHF, CKD, CAD s/p stent, diabetes and gout who presented with anasarca secondary to CHF vs nephrotic syndrome. Pbnp was elevated. Chest xray showed cardiomegaly and mild congestion. He was started on IV lasix, metolazone and metoprolol. Echocardiogram was reviewed with EF of 20%. Cardiology is following the patient and added amiodarone, spironalactone and milrinone drip. Nephrology is also following for acute on chronic renal failure. Renal / bladder / abdominal ultrasounds were reviewed. 24 hour urine in process. Will monitor kidney function closely while on diuretics and follow up with nephrology recommendations. He is on colchichine and prednisone for acute gout flare up of his left hand. Xrays were reviewed. Orthopedics evaluation was appreciated. He is on levemir, humalog and insulin ss for diabetes. A1c level was 9.6. Dread Carrillo MD Hospitalist.
[2018-07-15 22:08] LABS: URINE COLLECTION TIME 24 HOURS
[2018-07-15 22:09] LABS: URINE 24 HOUR TOTAL PROTEIN 9620 mg/24HR (42-225); URINE TOTAL VOLUME 5200 mL (800-1400)
[2018-07-16] MEDS: Milrinone 20mg/100ml D5W 100 ML IV PRN ×3 (01:47→22:44)
[2018-07-16 05:04] LABS: URINE BILIRUBIN NEGATIVE (NEGATIVE); URINE BLOOD SMALL (NEGATIVE); URINE GLUCOSE (UA) 100 mg/dL (NEGATIVE); URINE LEUKOCYTE ESTERASE NEGATIVE Leu/uL (NEGATIVE); URINE PROTEIN 100 mg/dL (<30 mg/dL); URINE UROBILINOGEN 0.2 E.U./dL (<1 E.U./dL)
[2018-07-16 05:31] LABS: URINE APPEARANCE SL CLOUDY (CLEAR); URINE COLOR YELLOW (YELLOW)
[2018-07-16 05:40] LABS: URINE WBC 0 - 2 /hpf (0-6)
[2018-07-16 05:41] LABS: URINE EPITHELIAL CELLS 0 - 2 /hpf (0-5)
[2018-07-16 07:34] LABS: BASO # 0.01 K/mm3 (0.0-2.0); BASO % 0.2 % (0.0-3.0); EOS # 0.1 (0.0-0.7); EOS % 1.2 % (1.5-5.0); GRAN # 2.93 (1.4-6.5); GRAN % 49.6 % (50.0-68.0); HEMOGLOBIN 10.8 g/dL (14.0-18.0); LYMPH % 33.7 % (22.0-35.0); MEAN CELL VOLUME 96.6 fl (80.0-105.0); MEAN CORPUSCULAR HEMOGLOBIN 32.9 pg (25.0-35.0); MEAN CORPUSCULAR HGB CONC 34.1 g/dl (31.0-37.0); MEAN PLATELET VOLUME 10.5 fl (7.0-11.0); MONO # 0.9 (0.1-0.6); MONO % 15.3 % (1.0-6.0); RBC 3.28 10^6/uL (3.5-6.1); RED CELL DISTRIBUTION WIDTH 12.5 % (11.5-14.5); WHITE BLOOD COUNT 5.9 10^3/ul (4.5-11.0)
[2018-07-16] MEDS: Insulin Lispro 1 UNITS/0.01 ML SC SCH ×3 (08:21→17:28)
[2018-07-16] MEDS: Insulin Lispro (HUMAlog) HIGH Coverage SC SCH ×4 (08:23→21:33)
[2018-07-16 08:32] LABS: ALB/GLOB RATIO 0.8 (1.1-1.8); ALBUMIN 2.7 g/dL (3.0-4.8); CALCIUM 8.7 mg/dL (8.4-10.5)
[2018-07-16] MEDS: Multivitamin Vitamin B Complex (Nephro-Vite) Tab PO SCH (10:31)
[2018-07-16] MEDS: metOLazone 5 MG TAB PO SCH ×2 (10:35→17:25)
[2018-07-16] MEDS: Insulin Detemir 100 units/ml Vial (Levemir) SC SCH ×2 (10:40→17:29)
[2018-07-16] MEDS: DESLORATADINE 5 MG PO SCH (10:41)
--- NOTE | 2018-07-16 12:13 | CP.PCM.PN ---
<Rasta Weaver - Last Filed: 07/16/18 13:03> Subjective - Date & Time of Evaluation Date of Evaluation: 07/16/18 Time of Evaluation: 12:11 - Subjective Subjective: Rasta Weaver D.O PGY-1, Internal Medicine progress note for Dr. Carrillo Patient was examined at bedside, no acute overnight events. Patient is still complaining of left arm pain. Denies fevers, chills, chest pain, shortness of breath, abdominal pain, N/V/D. Objective - Vital Signs/Intake and Output Vital Signs (last 24 hours): Temp Pulse Resp BP Pulse Ox 98 F 80 20 166/83 H 94 L 07/16/18 06:00 07/16/18 10:36 07/16/18 06:00 07/16/18 10:37 07/16/18 06:00 Intake and Output: 07/16/18 07/16/18 06:59 18:59 Intake Total 518 Output Total 600 Balance -82 - Medications Medications: Current Medications Amiodarone HCl (Cordarone) 200 mg PO DAILY [facility] Last Admin: 07/16/18 10:35 Dose: 200 mg Clonidine HCl (Catapres) 0.1 mg PO BID [facility] Last Admin: 07/16/18 10:36 Dose: 0.1 mg Clopidogrel Bisulfate (Plavix) 75 mg PO DAILY [facility] Last Admin: 07/16/18 10:31 Dose: 75 mg Colchicine (Colocrys) 0.6 mg PO DAILY [facility] Last Admin: 07/16/18 10:41 Dose: 0.6 mg Dextrose (Dextrose 50% Inj) 0 ml IV STAT PRN; Protocol PRN Reason: Hypoglycemia Protocol Ergocalciferol (Drisdol 50,000 Intl Units Cap) 1 cap PO Q7D [facility] Last Admin: 07/15/18 15:56 Dose: 1 cap Ferrous Gluconate (Fergon) 324 mg PO TID [facility] Last Admin: 07/16/18 10:36 Dose: 324 mg Furosemide (Lasix) 80 mg IVP BID [facility] Last Admin: 07/16/18 10:37 Dose: 80 mg Hydralazine HCl (Apresoline) 10 mg PO QID PRN PRN Reason: for sbp>160 Dextrose (Dextrose 5% In Water 1000 Ml) 1,000 mls @ 0 mls/hr IV .Q0M PRN; Protocol; Per Protocol PRN Reason: Hypoglycemia Protocol Milrinone Lactate/Dextrose (Primacor 20mg/100ml D5w) 100 mls @ 11.539 mls/hr IV .Q8H40M PRN; Protocol; 0.2 MCG/KG/MIN PRN Reason: TITRATE PER MD ORDER Stop: 07/17/18 07:00 Last Admin: 07/16/18 01:47 Dose: 0.2 mcg/kg/min, 11.539 mls/hr Insulin Detemir (Levemir) 50 unit SC BID [facility] Last Admin: 07/16/18 10:40 Dose: 50 units Insulin Human Lispro (Humalog High) 0 units SC ACHS [facility] PRN Reason: Protocol Last Admin: 07/16/18 08:23 Dose: 2 units Insulin Human Lispro (Humalog) 20 units SC AC [facility] Last Admin: 07/16/18 08:21 Dose: Not Given Metolazone (Zaroxolyn) 5 mg PO BID [facility] Stop: 07/17/18 18:01 Last Admin: 07/16/18 10:35 Dose: 5 mg Metoprolol Tartrate (Lopressor) 25 mg PO BID [facility] Last Admin: 07/16/18 10:31 Dose: 25 mg Non-Formulary Medication (Desloratadine [Clarinex]) 5 mg PO DAILY [facility] Last Admin: 07/16/18 10:41 Dose: Not Given Non-Formulary Medication (Febuxostat [Uloric]) 80 mg PO DAILY [facility] Last Admin: 07/16/18 10:40 Dose: Not Given Non-Formulary Medication (Nebivolol [Bystolic]) 10 mg PO DAILY [facility] Last Admin: 07/14/18 10:53 Dose: Not Given Prednisone (Prednisone Tab) 30 mg PO DAILY [facility] Last Admin: 07/16/18 10:34 Dose: 30 mg Spironolactone (Aldactone) 25 mg PO BID [facility] Last Admin: 07/16/18 10:35 Dose: 25 mg Vitamin B Complex/Vit C/Folic Acid (Nephro-Juan) 1 tab PO 0800 [facility] Last Admin: 07/16/18 10:31 Dose: 1 tab - Labs Labs: 07/16/18 06:00 07/16/18 06:00 - Constitutional Appears: No Acute Distress - Head Exam Head Exam: ATRAUMATIC, NORMAL INSPECTION - Eye Exam Eye Exam: Normal appearance - ENT Exam ENT Exam: Mucous Membranes Moist - Respiratory Exam Respiratory Exam: Clear to Ausculation Bilateral. absent: Rales, Rhonchi, Wheezes, Respiratory Distress - Cardiovascular Exam Cardiovascular Exam: REGULAR RHYTHM, +S1, +S2. absent: Gallop, Rubs, Murmur - GI/Abdominal Exam GI & Abdominal Exam: Distended, Rigid, Normal Bowel Sounds. absent: Soft, Tenderness Additional comments: pitting edema on the abdomen - Extremities Exam Additional comments: +2 pitting edema on bilateral lower extremities. Both upper extremities are edematous, more on the left than on the right. Left arm edema has improved compared to yesterday. - Neurological Exam Neurological Exam: Alert, Awake, Oriented x3 - Psychiatric Exam Psychiatric exam: Normal Affect, Normal Mood - Skin Skin Exam: Dry, Intact, Warm Assessment and Plan - Assessment and Plan (Free Text) Assessment: 52 year old male with past medical history of CHF, CKD (Stage III), recurrent UTI's, CAD s/p stent placement, DM, KENDALL (not on CPAP), gout and osteoarthritis who presents with progressively worsening edema of the lower extremities and abdomen over the past 12 months. Plan: Anasarca - 2/2 Nephrotic syndrome vs CHF exacerbation vs Venous insufficiency vs hepatic etiologies vs Hepatitis C GN - CXR: no change in cardiomegaly; pulmonary congestion - C/w Lasix IV 80mg IVP BID, Aldactone 25mg PO BID, and Metalozone 5mg BID - C/w Amiodarone 200 mg PO QD, Primacor 20mg/100ml D5w, and Metoprolol 25 mg PO BID - UA - proteinuria, (9.6g) - Hepatitis C antibody is reactive - Echocardiogram; LVEF 20% - Strict IO + Daily weight - Abdominal US - mild hepatomegaly, possible hepatic steatosis; inflammatory/ infectious etiologies cannot be excluded; - UE/LE US: No DVT - Cardiology Consulted - Dr. Spring - Nephrology Consulted - Dr. Vega SUSAN in setting of CKD III - Pre-renal SUSAN - Baseline Cr 1.6; BUN/ Cr 55/ 1.9 this AM - Proteinuria, Glucosuria, and Moderate blood in UA - Continue monitoring Cr - Renal ultrasound: Renal veins patent bilaterally, no hydronephrosis - Bladder ultrasound: wnl - Nephrology Following - Dr. Vega Gout flare - Likely chronic, 2/2 to CKD vs. diet - Continue Colchicine 0.6mg PO BID - Continue febuxostat - Oral prednisone 30mg Daily - Avoiding NSAIDS secondary to CKD status - Forearm xray - Forearm swelling; no osseous abnormality - Hand xray - Soft tissue swelling w/o osseous abnormality; punctate foreign bodies within soft tissues - Possible steroid injection by ortho - Ortho consulted - Dr. Harding Hepatitis C - Hepatitis C antibody is reactive - Patient was unaware of his status and was updated on the results Hypokalemia- resolved - Repleted - M.1 - Will continue to monitor Hx of CAD s/p stent placement - Plavix 75 QD - Cardiology consulted DM2 - Levamir 50 BID - Humalog 20 AC - ISS High protocol - Accucheck ACHS - A1C 9.6 - Carb consistent diet - Nutrition referral Hx Hypertension - Clonidine - 0.1 BID - Bystolic - 10mg QD DVT ppx - SCDs Patient was seen, examined, and discussed at bedside with Attending physician Dr. Carrillo <Dread Carrillo - Last Filed: 07/16/18 13:20> Objective - Vital Signs/Intake and Output Vital Signs (last 24 hours): Temp Pulse Resp BP Pulse Ox 98 F 72 20 151/87 H 94 L 07/16/18 12:00 07/16/18 12:00 07/16/18 12:00 07/16/18 12:00 07/16/18 06:00 Intake and Output: 07/16/18 07/16/18 06:59 18:59 Intake Total 518 100 Output Total 600 Balance -82 100 - Medications Medications: Current Medications Amiodarone HCl (Cordarone) 200 mg PO DAILY [facility] Last Admin: 07/16/18 10:35 Dose: 200 mg Clonidine HCl (Catapres) 0.1 mg PO BID [facility] Last Admin: 07/16/18 10:36 Dose: 0.1 mg Clopidogrel Bisulfate (Plavix) 75 mg PO DAILY [facility] Last Admin: 07/16/18 10:31 Dose: 75 mg Colchicine (Colocrys) 0.6 mg PO DAILY [facility] Last Admin: 07/16/18 10:41 Dose: 0.6 mg Dextrose (Dextrose 50% Inj) 0 ml IV STAT PRN; Protocol PRN Reason: Hypoglycemia Protocol Ergocalciferol (Drisdol 50,000 Intl Units Cap) 1 cap PO Q7D [facility] Last Admin: 07/15/18 15:56 Dose: 1 cap Ferrous Gluconate (Fergon) 324 mg PO TID [facility] Last Admin: 07/16/18 10:36 Dose: 324 mg Furosemide (Lasix) 80 mg IVP BID [facility] Last Admin: 07/16/18 10:37 Dose: 80 mg Hydralazine HCl (Apresoline) 10 mg PO QID PRN PRN Reason: for sbp>160 Dextrose (Dextrose 5% In Water 1000 Ml) 1,000 mls @ 0 mls/hr IV .Q0M PRN; Protocol; Per Protocol PRN Reason: Hypoglycemia Protocol Milrinone Lactate/Dextrose (Primacor 20mg/100ml D5w) 100 mls @ 11.539 mls/hr IV .Q8H40M PRN; Protocol; 0.2 MCG/KG/MIN PRN Reason: TITRATE PER MD ORDER Stop: 07/17/18 07:00 Last Admin: 07/16/18 12:54 Dose: 0.2 mcg/kg/min, 11.539 mls/hr Insulin Detemir (Levemir) 50 unit SC BID [facility] Last Admin: 07/16/18 10:40 Dose: 50 units Insulin Human Lispro (Humalog High) [address] [facility] PRN Reason: Protocol Last Admin: 07/16/18 12:14 Dose: 4 units Insulin Human Lispro (Humalog) 20 units SC AC [facility] Last Admin: 07/16/18 12:13 Dose: 20 units Metolazone (Zaroxolyn) 5 mg PO BID [facility] Stop: 07/17/18 18:01 Last Admin: 07/16/18 10:35 Dose: 5 mg Metoprolol Tartrate (Lopressor) 25 mg PO BID [facility] Last Admin: 07/16/18 10:31 Dose: 25 mg Non-Formulary Medication (Desloratadine [Clarinex]) 5 mg PO DAILY [facility] Last Admin: 07/16/18 10:41 Dose: Not Given Non-Formulary Medication (Febuxostat [Uloric]) 80 mg PO DAILY [facility] Last Admin: 07/16/18 10:40 Dose: Not Given Non-Formulary Medication (Nebivolol [Bystolic]) 10 mg PO DAILY [facility] Last Admin: 07/14/18 10:53 Dose: Not Given Prednisone (Prednisone Tab) 30 mg PO DAILY [facility] Last Admin: 07/16/18 10:34 Dose: 30 mg Spironolactone (Aldactone) 25 mg PO BID [facility] Last Admin: 07/16/18 10:35 Dose: 25 mg Vitamin B Complex/Vit C/Folic Acid (Nephro-Juan) 1 tab PO 0800 [facility] Last Admin: 07/16/18 10:31 Dose: 1 tab - Labs Labs: 07/16/18 06:00 07/16/18 06:00 Attending/Attestation - Attestation I have personally seen and examined this patient.: Yes I have fully participated in the care of the patient.: Yes I have reviewed all pertinent clinical information, including history, physical exam and plan: Yes Notes (Text): 07/16/18 13:18 52 year old male with past medical history of CHF, CKD, CAD s/p stent, diabetes and gout who presented with anasarca secondary to CHF vs nephrotic syndrome. Pbnp was elevated. Chest xray showed cardiomegaly and mild congestion. He was started on IV lasix, metolazone and metoprolol. Echocardiogram was reviewed with EF of 20% and milrinone drip and spironalactone was added. Cardiology is following. Nephrology is also following for acute on chronic renal failure. Renal / bladder / abdominal ultrasounds were reviewed. 24 hour urine showed proteinuria. Will monitor kidney function closely while on diuretics and follow up with nephrology recommendations. ?Renal biopsy. Will discuss with nephrology. He is on colchichine and prednisone for acute gout flare up of his left hand. Xrays were reviewed. Orthopedics evaluation was appreciated. He is on levemir, humalog and insulin ss for diabetes. A1c level was 9.6. Hepatitis C ab was positive. This was discussed with the patient. Recommended outpatient follow up. Dread Carrillo MD Hospitalist.
--- NOTE | 2018-07-16 12:52 | CP.PCM.PN ---
Subjective - Date & Time of Evaluation Date of Evaluation: 07/16/18 Time of Evaluation: 12:46 - Subjective Subjective: Assessment: Stable Acute Kidney Injury (N17.9) likely cardio-renal and hemodynamic Diabetic chronic Kidney Disease (E11.22)/Hypertensive Chronic Kidney Disease ( I12.9) Chronic Kidney Disease (N18.2) Stage 3 with nephrotic range proteinuria Anemia (D64.9), HTN (I12.9) morbid obesity, fluid overload moderate pulm HTN, diastolic CHF KENDALL, chronic respi acidosis with metabolic compensation hep c Plan No acute need for renal replacement therapy at this time. Hypertension control with meds as ordered. Patient not on ACEI/ARB due to SUSAN Renal function tolerating diuretics - continue as your doing has very heavy proteinuria (10 grams)- etiology not completely clear yet - ? dm ? obesity related ? ? hep c related GN? will check spep, if, SFLC assay, RF. Complements normal, hiv negative. COnsider hep c VL. Will discuss w/ him possibility of kidney biopsy at somepoint continue iron given elevated bicarb and possible component of chronic CO2 retention - recc check abg to better understand acid base status S: states edema is improving Physical Examination: General Appearance: Comfortable, in no acute respiratory distress, co-operative . morbid obesity Vitals reviewed and noted as below Head; Atraumatic, normocephalic ENT: no ulcers no thrush. Tongue is midline. Oropharynx: no rash or ulcers. EYES: Pupils are equal, round and reactive to light accommodation. Eye muscles and extraocular movement intact. Sclera is anicteric. Neck; supple no lymphadenopathy, no thyromegaly or bruit Lungs: Normal respiratory rate/effort. Breath sounds bilateral decreased at bases Heart: Normal rate. s1s2 normal. No rub or gallop. Extremities: 2-3+ edema. No varicose veins Neurological: Patient is alert, awake and oriented to person, place and time. No focal deficit. Strength bilateral appropriate and equal Skin: Warm and dry. Normal turgor. No rash. Palpitation: Normal elasticity for age Abdomen: Abdomen is soft. Bowel sounds +. There is no abdominal tenderness, no guarding/rigidity no organomegaly. abdomen wall edema Psych: normal insight and normal affect/mood MSK: no joint tenderness or swelling. Digits and nails normal, no deformity : kidney or bladder not palpable but exam limited due to obesity Objective - Vital Signs/Intake and Output Vital Signs (last 24 hours): Temp Pulse Resp BP Pulse Ox 98 F 72 20 151/87 H 94 L 07/16/18 12:00 07/16/18 12:00 07/16/18 12:00 07/16/18 12:00 07/16/18 06:00 Intake and Output: 07/16/18 07/16/18 06:59 18:59 Intake Total 518 Output Total 600 Balance -82 - Medications Medications: Current Medications Amiodarone HCl (Cordarone) 200 mg PO DAILY [facility] Last Admin: 07/16/18 10:35 Dose: 200 mg Clonidine HCl (Catapres) 0.1 mg PO BID [facility] Last Admin: 07/16/18 10:36 Dose: 0.1 mg Clopidogrel Bisulfate (Plavix) 75 mg PO DAILY [facility] Last Admin: 07/16/18 10:31 Dose: 75 mg Colchicine (Colocrys) 0.6 mg PO DAILY [facility] Last Admin: 07/16/18 10:41 Dose: 0.6 mg Dextrose (Dextrose 50% Inj) 0 ml IV STAT PRN; Protocol PRN Reason: Hypoglycemia Protocol Ergocalciferol (Drisdol 50,000 Intl Units Cap) 1 cap PO Q7D [facility] Last Admin: 07/15/18 15:56 Dose: 1 cap Ferrous Gluconate (Fergon) 324 mg PO TID [facility] Last Admin: 07/16/18 10:36 Dose: 324 mg Furosemide (Lasix) 80 mg IVP BID [facility] Last Admin: 07/16/18 10:37 Dose: 80 mg Hydralazine HCl (Apresoline) 10 mg PO QID PRN PRN Reason: for sbp>160 Dextrose (Dextrose 5% In Water 1000 Ml) 1,000 mls @ 0 mls/hr IV .Q0M PRN; Protocol; Per Protocol PRN Reason: Hypoglycemia Protocol Milrinone Lactate/Dextrose (Primacor 20mg/100ml D5w) 100 mls @ 11.539 mls/hr IV .Q8H40M PRN; Protocol; 0.2 MCG/KG/MIN PRN Reason: TITRATE PER MD ORDER Stop: 07/17/18 07:00 Last Admin: 07/16/18 01:47 Dose: 0.2 mcg/kg/min, 11.539 mls/hr Insulin Detemir (Levemir) 50 unit SC BID [facility] Last Admin: 07/16/18 10:40 Dose: 50 units Insulin Human Lispro (Humalog High) 0 units SC ACHS [facility] PRN Reason: Protocol Last Admin: 07/16/18 12:14 Dose: 4 units Insulin Human Lispro (Humalog) 20 units SC AC [facility] Last Admin: 07/16/18 12:13 Dose: 20 units Metolazone (Zaroxolyn) 5 mg PO BID [facility] Stop: 07/17/18 18:01 Last Admin: 07/16/18 10:35 Dose: 5 mg Metoprolol Tartrate (Lopressor) 25 mg PO BID [facility] Last Admin: 07/16/18 10:31 Dose: 25 mg Non-Formulary Medication (Desloratadine [Clarinex]) 5 mg PO DAILY [facility] Last Admin: 07/16/18 10:41 Dose: Not Given Non-Formulary Medication (Febuxostat [Uloric]) 80 mg PO DAILY [facility] Last Admin: 07/16/18 10:40 Dose: Not Given Non-Formulary Medication (Nebivolol [Bystolic]) 10 mg PO DAILY [facility] Last Admin: 07/14/18 10:53 Dose: Not Given Prednisone (Prednisone Tab) 30 mg PO DAILY [facility] Last Admin: 07/16/18 10:34 Dose: 30 mg Spironolactone (Aldactone) 25 mg PO BID [facility] Last Admin: 07/16/18 10:35 Dose: 25 mg Vitamin B Complex/Vit C/Folic Acid (Nephro-Juan) 1 tab PO 0800 [facility] Last Admin: 07/16/18 10:31 Dose: 1 tab - Labs Labs: 07/16/18 06:00 07/16/18 06:00
[2018-07-16 13:56] LABS: ARTERIAL BLOOD GAS HCO3 34.7 mmol/L (21-28); ARTERIAL BLOOD GAS HEMOGLOBIN 10.4 g/dL (11.7-17.4); ARTERIAL BLOOD GAS O2 CONTENT 12.7 ML/dl (15-23); ARTERIAL BLOOD GAS O2 SAT 90.9 % (95-98); ARTERIAL BLOOD GAS PCO2 56 mm/Hg (35-45); ARTERIAL BLOOD GAS TCO2 36.4 mmol.L (22-28)
--- NOTE | 2018-07-16 15:08 | PN ---
Copied To: Vamshi Ojeda MD Attending MD: Vamshi Ojeda MD DATE: 07/16/2018 COVERING FOR: Tarik Spring MD. REASON FOR CONSULTATION: Acute decompensated congestive heart failure, acute on chronic secondary to systolic dysfunction. SUBJECTIVE: The patient denies any chest pain, shortness of breath, or any palpitations. Feels a lot better, on Primacor. Had a lot of urine, 2 L negative fluid balance. PHYSICAL EXAMINATION: VITAL SIGNS: Temperature afebrile, heart rate 80, blood pressure 162/83. HEENT: PERRLA. Extraocular muscles intact. NECK: Supple. No carotid bruit or thyromegaly. CHEST: Clear to auscultation. HEART: S1 and S2, regular. ABDOMEN: Soft. EXTREMITIES: Clubbing and cyanosis negative. LABORATORY DATA: WBC 5.9, hemoglobin 10.8, hematocrit 31.7, and platelet count 303. Chemistry shows sodium 130, potassium 3.9, chloride 95, carbon dioxide 37, anion gap of 11, BUN 155, creatinine 1.9. IMPRESSION: A 52-year-old male with past medical history significant for cardiomyopathy, history of coronary artery disease, decreased left ventricular function, history of stent 7 years ago, admitted with decompensated congestive heart failure and significant weight gain. The patient was started on Primacor and started on aggressive diuresis. Morbid obesity, diabetes, hypertension, hyperlipidemia, coronary artery disease. RECOMMENDATIONS: Emphasize on weight reduction. Continue Primacor for the next 24 hours, continue clonidine, continue spironolactone, supplement potassium as needed, continue aggressive diuresis with Primacor. Renal function is improving and we will put hydralazine p.r.n. Avoid nephrotoxic medications. We will follow with you and transfer care tomorrow to Dr. Tarik Spring. Emphasis made on weight reduction and compliance with medications. Thank you Dr. Carrillo, for providing us the opportunity in taking care of the patient, Julián Aguilar. Vamshi Ojeda MD
[2018-07-17 06:30] LABS: EOS # 0.1 (0.0-0.7); EOS % 0.9 % (1.5-5.0); LYMPH # 2.2 (1.2-3.4); MEAN CELL VOLUME 95.1 fl (80.0-105.0); MEAN CORPUSCULAR HEMOGLOBIN 32.7 pg (25.0-35.0); MEAN CORPUSCULAR HGB CONC 34.4 g/dl (31.0-37.0); MEAN PLATELET VOLUME 10.3 fl (7.0-11.0); MONO # 0.6 (0.1-0.6); MONO % 9.1 % (1.0-6.0); RBC 3.67 10^6/uL (3.5-6.1); RED CELL DISTRIBUTION WIDTH 12.4 % (11.5-14.5); WHITE BLOOD COUNT 6.9 10^3/ul (4.5-11.0)
[2018-07-17 06:36] LABS: ALB/GLOB RATIO 0.8 (1.1-1.8); ALBUMIN 3.6 g/dL (3.0-4.8); CALCIUM 9.2 mg/dL (8.4-10.5)
[2018-07-17] MEDS: Insulin Lispro (HUMAlog) HIGH Coverage SC SCH ×4 (07:50→21:55)
[2018-07-17] MEDS: Multivitamin Vitamin B Complex (Nephro-Vite) Tab PO SCH (08:02)
[2018-07-17] MEDS: Insulin Lispro 1 UNITS/0.01 ML SC SCH ×3 (08:03→17:28)
[2018-07-17] MEDS: Insulin Detemir 100 units/ml Vial (Levemir) SC SCH (10:01)
--- NOTE | 2018-07-17 10:02 | PN ---
Copied To: Tarik Spring MD Attending MD: Tarik Spring MD DATE: 07/17/2018 CARDIOLOGY FOLLOWUP SUBJECTIVE: The patient's breathing is much improved. He is on IV milrinone. PHYSICAL EXAMINATION: VITAL SIGNS: Blood pressure is 148/90, the heart rate is in the 80s. NECK: Negative JVD. LUNGS: Without rales. HEART: Reveals S1, S2. EXTREMITIES: Decreasing edema. LABORATORY DATA: The creatinine is down to 1.8. BUN is 52, hemoglobin is 12. Echocardiogram reveals a dilated cardiomyopathy. IMPRESSION: 1. Status post acute systolic congestive heart failure, improved on IV milrinone. 2. Dilated cardiomyopathy. 3. History of coronary artery disease and stents. 4. Morbid obesity. 5. Diabetes mellitus. PLAN: Given these findings, the cause of the patient's cardiomyopathy is likely due to his diabetes. However, cannot rule out significant coronary artery disease given that he has had previous stents in the past. I have discussed this with the patient in detail. We will proceed with cardiac catheterization in the morning to rule out new coronary lesions as a cause to his cardiomyopathy. We will continue him on Plavix if necessary. We will stent his arteries. If there are no new coronary lesions, the patient will need to seriously proceed with the cardiac risk reduction program. The patient is still in denial and states that he does not eat much, although the patient is morbidly obese. Tarik Spring MD
[2018-07-17] MEDS: metOLazone 5 MG TAB PO SCH (10:04)
[2018-07-17] MEDS: Milrinone 20mg/100ml D5W 100 ML IV PRN ×2 (10:05→22:02)
[2018-07-17] MEDS: DESLORATADINE 5 MG PO SCH (10:18)
--- NOTE | 2018-07-17 10:28 | CP.PCM.PN ---
<Shan Pop - Last Filed: 07/17/18 14:34> Subjective - Date & Time of Evaluation Date of Evaluation: 07/17/18 Time of Evaluation: 10:23 - Subjective Subjective: Shan Pop DO PGY1 - Internal Medicine Net [employer] Developer - Hospital Progress Note Patient was seen and examined at bedside this AM He is still having complaints of L arm pain; similar to initial presentation Still reports some SOB/ Orthopnea however states breathing is improved from admission; Remainder of 12 system ROS is otherwise negative. HepC Antibody results were communicated to patient; verbalized need for outpatient workup; Patient was educated on hepC studies and remainder of workup. Plans for cardiac cath were discussed with patient; Catheterization to be done by Dr. Spring tomorrow pt agreeable foe cath at this time. Objective - Vital Signs/Intake and Output Vital Signs (last 24 hours): Temp Pulse Resp BP Pulse Ox 98 F 77 20 168/98 H 95 07/17/18 06:00 07/17/18 10:05 07/17/18 06:00 07/17/18 10:05 07/17/18 06:00 Intake and Output: 07/17/18 07/17/18 06:59 18:59 Intake Total 598 Output Total 0 Balance 598 - Medications Medications: Current Medications Amiodarone HCl (Cordarone) 200 mg PO DAILY [facility] Last Admin: 07/17/18 10:03 Dose: 200 mg Clonidine HCl (Catapres) 0.1 mg PO BID [facility] Last Admin: 07/17/18 10:04 Dose: 0.1 mg Clopidogrel Bisulfate (Plavix) 75 mg PO DAILY [facility] Last Admin: 07/17/18 10:03 Dose: 75 mg Colchicine (Colocrys) 0.6 mg PO DAILY [facility] Last Admin: 07/17/18 10:03 Dose: 0.6 mg Dextrose (Dextrose 50% Inj) 0 ml IV STAT PRN; Protocol PRN Reason: Hypoglycemia Protocol Ergocalciferol (Drisdol 50,000 Intl Units Cap) 1 cap PO Q7D [facility] Last Admin: 07/15/18 15:56 Dose: 1 cap Ferrous Gluconate (Fergon) 324 mg PO TID [facility] Last Admin: 07/17/18 10:04 Dose: 324 mg Furosemide (Lasix) 80 mg IVP DAILY [facility] Last Admin: 07/17/18 10:02 Dose: 80 mg Hydralazine HCl (Apresoline) 10 mg PO QID PRN PRN Reason: for sbp>160 Last Admin: 07/16/18 21:34 Dose: 10 mg Dextrose (Dextrose 5% In Water 1000 Ml) 1,000 mls @ 0 mls/hr IV .Q0M PRN; Protocol; Per Protocol PRN Reason: Hypoglycemia Protocol Milrinone Lactate/Dextrose (Primacor 20mg/100ml D5w) 100 mls @ 8.638 mls/hr IV .[id number] PRN; Protocol; 0.2 MCG/KG/MIN PRN Reason: TITRATE PER MD ORDER Last Admin: 07/17/18 10:05 Dose: 0.2 mcg/kg/min, 8.638 mls/hr Insulin Detemir (Levemir) 50 unit SC BID [facility] Last Admin: 07/17/18 10:01 Dose: Not Given Insulin Human Lispro (Humalog High) 0 units SC [facility] PRN Reason: Protocol Last Admin: 07/17/18 07:50 Dose: Not Given Insulin Human Lispro (Humalog) 20 units SC AC [facility] Last Admin: 07/17/18 08:03 Dose: 20 units Metolazone (Zaroxolyn) 5 mg PO BID [facility] Stop: 07/17/18 18:01 Last Admin: 07/17/18 10:04 Dose: 5 mg Metoprolol Tartrate (Lopressor) 25 mg PO BID [facility] Last Admin: 07/17/18 10:04 Dose: 25 mg Non-Formulary Medication (Desloratadine [Clarinex]) 5 mg PO DAILY [facility] Last Admin: 07/17/18 10:18 Dose: Not Given Non-Formulary Medication (Febuxostat [Uloric]) 80 mg PO DAILY [facility] Last Admin: 07/17/18 10:19 Dose: Not Given Non-Formulary Medication (Nebivolol [Bystolic]) 10 mg PO DAILY [facility] Last Admin: 07/14/18 10:53 Dose: Not Given Prednisone (Prednisone Tab) 30 mg PO DAILY [facility] Last Admin: 07/17/18 10:04 Dose: 30 mg Spironolactone (Aldactone) 25 mg PO BID [facility] Last Admin: 07/17/18 10:03 Dose: 25 mg Vitamin B Complex/Vit C/Folic Acid (Nephro-Juan) 1 tab PO 0800 [facility] Last Admin: 07/17/18 08:02 Dose: 1 tab - Labs Labs: 07/17/18 05:40 07/17/18 05:40 Physical Exam - Constitutional Appears: No Acute Distress - Head Exam Head Exam: ATRAUMATIC, NORMAL INSPECTION - Eye Exam Eye Exam: Normal appearance - ENT Exam ENT Exam: Mucous Membranes Moist - Respiratory Exam Respiratory Exam: Clear to Ausculation Bilateral. absent: Rales, Rhonchi, Wheezes, Respiratory Distress - Cardiovascular Exam Cardiovascular Exam: REGULAR RHYTHM, +S1, +S2. absent: Gallop, Rubs, Murmur - GI/Abdominal Exam GI & Abdominal Exam: Distended, Dull to percussion, Edematous, Pitting, some cellulitic changes appreciated, No tenderness - Extremities Exam Additional comments: 3+ pitting edema on bilateral lower extremities. 3+ pitting edema on bilateral upper extremities L upper extremity more edematous than left; some tenderness to palpation of the elbow wrist, and knuckle. - Neurological Exam Neurological Exam: Alert, Awake, Oriented x3 - Psychiatric Exam Psychiatric exam: Normal Affect, Normal Mood - Skin Skin Exam: Dry, Intact, Warm Assessment and Plan - Assessment and Plan (Free Text) Assessment: 52 year old male with past medical history of CHF, CKD (Stage III), recurrent UTI's, CAD s/p stent placement, DM, KENDALL (not on CPAP), gout and osteoarthritis who presents with progressively worsening edema of the lower extremities and abdomen over the past 12 months. Plan: Acute Systolic CHF Exacerbation - EF 20% on this admission; Down from 50% 12/15 - CXR: no change in cardiomegaly; pulmonary congestion - Decreased Lasix to 80QD as per Cardiology - C/w Aldactone 25mg PO BID, and Metalozone 5mg BID - C/w Amiodarone 200 mg PO QD, Milrinone, and Metoprolol 25 mg PO BID - Echocardiogram; LVEF 20% - IO: -3.4L total this admission - Patient for cardiac cath tmmr by Dr. Spring - Patient is NPO after midnight - Cardiology Consulted - Dr. Spring - Nephrology Consulted - Dr. Vega SUSAN in setting of CKD III - Pre-renal SUSAN w/ Nephrotic Syndrome - Baseline Cr 1.6; BUN/ Cr 52/1.8 this AM - Proteinuria appears to be improving; 24Hr urine Protein 9620 - Continue monitoring Cr - Renal ultrasound: Renal veins patent bilaterally, no hydronephrosis - Bladder ultrasound: wnl - Nephrology Following - Dr. Vega Gout flare - Likely chronic, 2/2 to CKD vs. diet - Continue Colchicine 0.6mg PO BID - Continue febuxostat - Oral prednisone 30mg Daily - Avoiding NSAIDS secondary to CKD status - Forearm xray - Forearm swelling; no osseous abnormality - Hand xray - Soft tissue swelling w/o osseous abnormality; punctate foreign bodies within soft tissues - UE/LE US: No DVT - Possible steroid injection by ortho - Ortho consulted - Dr. Harding Hepatitis C - Hepatitis C antibody is reactive - Patient was unaware of his status and was updated on the results Hypokalemia- resolved - Repleted - M.1 - Will continue to monitor Hx of CAD s/p stent placement - Plavix 75 QD - Cardiology consulted DM2 - Levamir 50 BID; Held for Cath tmmrw - Humalog 20 AC - ISS High protocol; Q6H for increased coverage - Accucheck Q6H - A1C 9.6 - Carb consistent diet - Nutrition referral Hx Hypertension - Clonidine - 0.1 BID - Bystolic - 10mg QD DVT ppx - SCDs Dispo: Continued inpatient admission at this time for management of acute CHF exacerbation, SUSAN in setting of CKD, and Gout Flare Patient seen, examined, and case discussed w/ attending physician Dr. Bess Pop DO PGY1 Internal Medicine [employer] - Pager [phone] <Bess Pop R - Last Filed: 07/18/18 18:47> Objective - Vital Signs/Intake and Output Vital Signs (last 24 hours): Temp Pulse Resp BP Pulse Ox 98.1 F 78 22 175/99 H 97 07/18/18 14:30 07/18/18 18:15 07/18/18 18:15 07/18/18 18:15 07/18/18 06:00 Intake and Output: 07/18/18 07/18/18 06:59 18:59 Intake Total 983 100 Output Total 2 Balance 981 100 - Medications Medications: Current Medications Amiodarone HCl (Cordarone) 200 mg PO DAILY [facility] Last Admin: 07/18/18 09:44 Dose: 200 mg Atorvastatin Calcium (Lipitor) 40 mg PO DIN [facility] Last Admin: 07/18/18 17:57 Dose: 40 mg Clonidine HCl (Catapres) 0.1 mg PO BID [facility] Last Admin: 07/18/18 17:57 Dose: 0.1 mg Clonidine HCl (Catapres) 0.1 mg PO Q1 PRN PRN Reason: hypertension Last Admin: 07/18/18 15:43 Dose: 0.1 mg Clopidogrel Bisulfate (Plavix) 75 mg PO DAILY [facility] Last Admin: 07/18/18 09:45 Dose: 75 mg Colchicine (Colocrys) 0.6 mg PO DAILY [facility] Last Admin: 07/18/18 09:45 Dose: 0.6 mg Dextrose (Dextrose 50% Inj) 0 ml IV STAT PRN; Protocol PRN Reason: Hypoglycemia Protocol Ergocalciferol (Drisdol 50,000 Intl Units Cap) 1 cap PO Q7D [facility] Last Admin: 07/15/18 15:56 Dose: 1 cap Ferrous Gluconate (Fergon) 324 mg PO TID [facility] Last Admin: 07/18/18 17:57 Dose: 324 mg Furosemide (Lasix) 80 mg IVP DAILY [facility] Last Admin: 07/18/18 09:37 Dose: 80 mg Dextrose (Dextrose 5% In Water 1000 Ml) 1,000 mls @ 0 mls/hr IV .Q0M PRN; Protocol; Per Protocol PRN Reason: Hypoglycemia Protocol Milrinone Lactate/Dextrose (Primacor 20mg/100ml D5w) 100 mls @ 8.638 mls/hr IV .[id number] PRN; Protocol; 0.2 MCG/KG/MIN PRN Reason: TITRATE PER MD ORDER Last Admin: 07/18/18 12:15 Dose: 0.2 mcg/kg/min, 8.638 mls/hr Insulin Detemir (Levemir) 50 unit SC BID [facility] Last Admin: 07/18/18 17:55 Dose: 50 units Insulin Human Lispro (Humalog) 20 units SC AC [facility] Last Admin: 07/18/18 17:58 Dose: 20 units Insulin Human Lispro (Humalog High) 0 units SC ACHS [facility] PRN Reason: Protocol Last Admin: 07/18/18 18:00 Dose: 7 u Metolazone (Zaroxolyn) 5 mg PO BID [facility] Stop: 07/22/18 18:01 Metoprolol Tartrate (Lopressor) 25 mg PO BID [facility] Last Admin: 07/18/18 17:58 Dose: 25 mg Non-Formulary Medication (Desloratadine [Clarinex]) 5 mg PO DAILY [facility] Last Admin: 07/18/18 09:46 Dose: Not Given Non-Formulary Medication (Febuxostat [Uloric]) 80 mg PO DAILY [facility] Last Admin: 07/18/18 09:46 Dose: Not Given Non-Formulary Medication (Nebivolol [Bystolic]) 10 mg PO DAILY [facility] Last Admin: 07/14/18 10:53 Dose: Not Given Prednisone (Prednisone Tab) 30 mg PO DAILY [facility] Last Admin: 07/18/18 09:43 Dose: 30 mg Spironolactone (Aldactone) 25 mg PO BID [facility] Last Admin: 07/18/18 17:57 Dose: 25 mg Vitamin B Complex/Vit C/Folic Acid (Nephro-Juan) 1 tab PO 0800 [facility] Last Admin: 07/18/18 08:17 Dose: 1 tab - Labs Labs: 07/18/18 05:50 07/18/18 05:50 Attending/Attestation - Attestation I have personally seen and examined this patient.: Yes I have fully participated in the care of the patient.: Yes I have reviewed all pertinent clinical information, including history, physical exam and plan: Yes Notes (Text): Patient seen and examined by me at 09:50AM with resident 07/17/18. Case including HPI, physical exam, and assessment and plan discussed with resident. Agree with above with following additions/corrections. Patient is a 52 year old male with past medical history significant for CHF, chronic kidney disease stage III, recurrent UTIs, coronary artery disease status post stent placement, type 2 diabetes, obstructive sleep apnea not on CPAP, gout, osteoarthritis, and edema of lower extremities and abdomen that presented to the emergency room with shortness of breath and gout flare of left wrist/hand. Patient states that he is feeling okay. He is denying any chest pain. He denies any shortness of breath. Complains of left arm pain. Pain has improved. He denies any abdominal pain or pain in his legs. He states he has ambulated a little bit and has not noticed shortness of breath. He states he had a few bowel movements today that were regular. He states that he is unable to sleep flat but that has been the case for quite some time. No headaches or dizziness. No fevers or chills. No nausea or vomiting. No dysuria. No diarrhea or constipation. Physical exam: Gen: Awake and alert sitting up in bed in no acute distress HEENT: Normocephalic, atraumatic. Extraocular muscles intact, pupils equal reactive. No scleral icterus. Oropharynx is pink and moist. Neck is supple. Cardiovascular: Normal rhythm. Normal S1, S2. No murmurs, rubs, or gallops appreciated, bilateral lower extremity pitting edema Pulmonary: Normal respiratory effort. No rhonchi, rales or wheezing appreciated. Gastrointestinal: Obese habitus. Abdomens feel hard secondary to edema, nontender, appears distended, positive pitting edema noted, positive bowel sounds all 4 quadrants, no guarding. Musculoskeletal: Moves all extremities. No calf tenderness. Positive left wrist tenderness Central nervous system: AAO x 3. CN 2-12 grossly intact. Dermatologic: Skin warm and dry Assessment and plan: Patient is a 52 year old male with past medical history significant for CHF, chronic kidney disease stage III, recurrent UTIs, coronary artery disease status post stent placement, type 2 diabetes, obstructive sleep apnea not on CPAP, gout, osteoarthritis, and edema of lower extremities and abdomen that presented to the emergency room with shortness of breath and gout flare of left wrist/hand. 1. Acute systolic CHF exacerbation. Possible cardiorenal syndrome. 2-D echo per radiologist showed left ventricle is borderline dilated, normal left ventricular wall thickness, systolic function is severely impaired, global hypokinesis of the left ventricle, mitral regurgitation is moderate, mild pulmonary hypertension. Cardiology following, recommendations appreciated. Nephrology following, recommendations appreciated. Continue with milrinone drip. Continue Lasix 80 mg IV daily, metolazone 5 mg twice a day, Lopressor 25 mg twice a day, and spironolactone. Continue amiodarone 200 mg daily. Continue to monitor ins and outs. Continue to monitor daily weights. Patient for cardiac catheterization tomorrow. Continue to monitor on telemetry. 2. SUSAN on CKD. Likely cardiorenal. Nephrology following, recommendations appreciated. Renal ultrasound per radiologist shows very limited study, visualized main renal veins are patent bilaterally, no hydronephrosis. Bladder ultrasound per radiologist shows normal capacitance bladder, no bladder wall or intra-luminal abnormalities, no post void residual. No DARWIN-I/ARB secondary to SUSAN. Continue to monitor 3. Gout flare. Continue colchicine and prednisone. Left forearm x-ray per radiologist shows soft tissue swelling without acute articular or osseous abnormality. Left hand x-ray per radiologist shows soft tissue swelling without acute or osseous abnormality, punctate foreign bodies within soft tissues. Orthopedics is following, recommendations appreciated. Left upper extremity venous Doppler negative for DVT. 4. Anasarca. Likely secondary to #1 and 2. Continue diuresis. Abdominal ultrasound per radiologist shows no cholelithiasis or biliary dilatation, mild hepatomegaly, diffuse increased echogenicity in the liver may reflect hepatic steatosis however parenchymal infectious/inflammatory etiologies cannot be entirely excluded. Bilateral lower extremity venous Dopplers negative for DVT 5. Hepatitis C positive. Patient advised that he will need further workup as an outpatient with either gastroenterology or infectious disease doctor. Patient states that he did have blood transfusions in the past. 6. History of coronary artery disease status post stent placement. Cardiology following, recommendations appreciated. Patient for cardiac catheterization tomorrow. Continue metoprolol and Plavix. 7. Hypoxic on ABG. May be chronic and secondary to possibly underlying KENDALL. We ll consult pulmonary. 8. Type 2 diabetes. Continue Levemir, insulin sliding scale, Humalog before meals. Monitor Accu-Cheks. 9. Hypertension. Continue clonidine, Lopressor, and Lasix. Continue hydralazine as needed 10. Anemia. Continue with oral iron supplement. Continue to monitor CBC. 11. Vitamin D deficiency. Continue with 50,000 international units every 7 days. Case was discussed in detail with the patient and patients at bedside regarding current diagnosis and treatment plan.
--- NOTE | 2018-07-17 15:49 | CP.PCM.PN ---
Subjective - Date & Time of Evaluation Date of Evaluation: 07/17/18 Time of Evaluation: 15:42 - Subjective Subjective: Nephrology Consultation Note: Assessment: Stable Acute Kidney Injury (N17.9) likely cardio-renal and hemodynamic Diabetic chronic Kidney Disease (E11.22)/Hypertensive Chronic Kidney Disease ( I12.9) Chronic Kidney Disease (N18.2) Stage 3 with 9 gram proteinuria (R80.9) Anemia (D64.9), HTN (I12.9) morbid obesity, fluid overload moderate pulm HTN, diastolic CHF KENDALL, chronic respi acidosis with metabolic compensation Hep C + severe sys CHF LVEF 20% ? Obesity hypo-ventilation syndrome with compensated chronic respi acidosis with hypoxia with metabolic alkalosis Vit D def Plan No acute need for renal replacement therapy at this time. Hypertension control with meds as ordered. Patient not on ACEI/ARB due to SUSAN, consider to add once stable. started on aldactone by cardiology Monitor Input/Output, daily weights and renal function with basic metabolic panel pt planned for cardiac cath, pt aware about risks and consequence including risk of SUSAN and dialysis. hold diuretics for a day and resume lasix 80 bid and metolazone 5 bid once stable renal function. oral fluid restriction to 1000 mL/ day supplement electrolytes as needed started Fe and MVI, weekly Vit D CHF optimization by cardiology treatment of Hep C by GI or ID as outpt kidney biopsy not likely to be feasible or useful at this time due to his morbid obesity/severe CHF and limitation of treatment options. may consider pulmonary eval as well for abnormal ABG will check RA factor and cryo level as well. Dose meds/antibiotics for reduced GFR. Avoid fleets enema/magnesium based laxatives. Avoid nephrotoxins/NSAIDs/ iodinated contrast (unless needed emergently) Glycemic control Further work up/management as per primary team weight loss, lifestyle modifications, diet/exercise needed Thanks for allowing me to participate in care of your patient. Will follow patient with you. Please call if any Qs. had d/w team Dr Miquel Vega Office: [phone] Chief Complaint; legs swelling and abdomen distension reason for consult: SUSAN and CKD HPI: Pt is a 52 M with hx of diabetes Mellitus (10 years) without known retinopathy, hypertension (many years) morbid obesity, episodes of SUSAN since 2002 with peaked cr 2.0 and baseline close to 1.5-2.0 since 2018, CKD 3, KENDALL not on CPAP presented with complaints of worsening leg swelling and abdomen distension over last few weeks. pt also c/o left arm swelling and gout flare says had gained 170 pounds over last 1 month although he is following diet control. Denies OTC/herbal meds or NSAIDs No recent iodinated contrast exposure. No obvious episodes of low BP. ROS: Cardiovascular: No chest pain. Pulmonary: improved shortness of breath n Gastrointestinal: denies abdominal pain No nausea. No vomiting. but c/o abdomen distension with superficial skin discoloration Genitourinary: No pain while urinating. Denies blood in urine. no symptoms of BPH All other negative Physical Examination: General Appearance: Comfortable, in no acute respiratory distress, co-operative . morbid obesity Vitals reviewed and noted as below Head; Atraumatic, normocephalic ENT: no ulcers no thrush. Tongue is midline. Oropharynx: no rash or ulcers. EYES: Pupils are equal, round and reactive to light accommodation. Eye muscles and extraocular movement intact. Sclera is anicteric. Neck; supple no lymphadenopathy, no thyromegaly or bruit Lungs: Normal respiratory rate/effort. Breath sounds bilateral decreased at bases Heart: Normal rate. s1s2 normal. No rub or gallop. Extremities: 2-3+ edema. No varicose veins Neurological: Patient is alert, awake and oriented to person, place and time. No focal deficit. Strength bilateral appropriate and equal Skin: Warm and dry. Normal turgor. No rash. Palpitation: Normal elasticity for age Abdomen: Abdomen is soft. Bowel sounds +. There is no abdominal tenderness, no guarding/rigidity no organomegaly. abdomen wall edema + very distended hence exam limited Psych: normal insight and normal affect/mood MSK: no joint tenderness or swelling. Digits and nails normal, no deformity : kidney or bladder not palpable but exam limited due to obesity Labs/imaging reviewed. Past medical history, past surgical history, family history, social history, allergy reviewed and noted as below Family hx: no hx of CKD. Rest non-contributory echo moderate pulm HTN renal sono with doppler and bladder sono: WNL kappa/lambda WNL and SPEP/VINCE neg c3/c4 normal LVEF 20% Objective - Vital Signs/Intake and Output Vital Signs (last 24 hours): Temp Pulse Resp BP Pulse Ox 97.8 F 72 20 162/89 H 95 07/17/18 12:00 07/17/18 12:00 07/17/18 12:00 07/17/18 12:00 07/17/18 06:00 Intake and Output: 07/17/18 07/17/18 06:59 18:59 Intake Total 598 Output Total 0 Balance 598 - Medications Medications: Current Medications Amiodarone HCl (Cordarone) 200 mg PO DAILY [facility] Last Admin: 07/17/18 10:03 Dose: 200 mg Clonidine HCl (Catapres) 0.1 mg PO BID [facility] Last Admin: 07/17/18 10:04 Dose: 0.1 mg Clopidogrel Bisulfate (Plavix) 75 mg PO DAILY [facility] Last Admin: 07/17/18 10:03 Dose: 75 mg Colchicine (Colocrys) 0.6 mg PO DAILY [facility] Last Admin: 07/17/18 10:03 Dose: 0.6 mg Dextrose (Dextrose 50% Inj) 0 ml IV STAT PRN; Protocol PRN Reason: Hypoglycemia Protocol Ergocalciferol (Drisdol 50,000 Intl Units Cap) 1 cap PO Q7D [facility] Last Admin: 07/15/18 15:56 Dose: 1 cap Ferrous Gluconate (Fergon) 324 mg PO TID [facility] Last Admin: 07/17/18 10:04 Dose: 324 mg Furosemide (Lasix) 80 mg IVP DAILY [facility] Last Admin: 07/17/18 10:02 Dose: 80 mg Hydralazine HCl (Apresoline) 10 mg PO QID PRN PRN Reason: for sbp>160 Last Admin: 07/16/18 21:34 Dose: 10 mg Dextrose (Dextrose 5% In Water 1000 Ml) 1,000 mls @ 0 mls/hr IV .Q0M PRN; Protocol; Per Protocol PRN Reason: Hypoglycemia Protocol Milrinone Lactate/Dextrose (Primacor 20mg/100ml D5w) 100 mls @ 8.638 mls/hr IV .[id number] PRN; Protocol; 0.2 MCG/KG/MIN PRN Reason: TITRATE PER MD ORDER Last Admin: 07/17/18 10:05 Dose: 0.2 mcg/kg/min, 8.638 mls/hr Insulin Detemir (Levemir) 50 unit SC BID [facility] Last Admin: 07/17/18 10:01 Dose: Not Given Insulin Human Lispro (Humalog) 20 units SC AC [facility] Last Admin: 07/17/18 12:27 Dose: 20 units Insulin Human Lispro (Humalog High) 0 units SC Q6H [facility] PRN Reason: Protocol Last Admin: 07/17/18 14:33 Dose: Not Given Metolazone (Zaroxolyn) 5 mg PO BID [facility] Stop: 07/17/18 18:01 Last Admin: 07/17/18 10:04 Dose: 5 mg Metoprolol Tartrate (Lopressor) 25 mg PO BID [facility] Last Admin: 07/17/18 10:04 Dose: 25 mg Non-Formulary Medication (Desloratadine [Clarinex]) 5 mg PO DAILY [facility] Last Admin: 07/17/18 10:18 Dose: Not Given Non-Formulary Medication (Febuxostat [Uloric]) 80 mg PO DAILY [facility] Last Admin: 07/17/18 10:19 Dose: Not Given Non-Formulary Medication (Nebivolol [Bystolic]) 10 mg PO DAILY [facility] Last Admin: 07/14/18 10:53 Dose: Not Given Prednisone (Prednisone Tab) 30 mg PO DAILY [facility] Last Admin: 07/17/18 10:04 Dose: 30 mg Spironolactone (Aldactone) 25 mg PO BID [facility] Last Admin: 07/17/18 10:03 Dose: 25 mg Vitamin B Complex/Vit C/Folic Acid (Nephro-Juan) 1 tab PO 0800 [facility] Last Admin: 07/17/18 08:02 Dose: 1 tab - Labs Labs: 07/17/18 05:40 07/17/18 05:40
[2018-07-18] MEDS: Insulin Lispro (HUMAlog) HIGH Coverage SC SCH ×5 (02:02→22:07)
--- NOTE | 2018-07-18 05:47 | CP.PCM.PN ---
<Shan Pop - Last Filed: 07/18/18 12:16> Subjective - Date & Time of Evaluation Date of Evaluation: 07/18/18 Time of Evaluation: 05:47 - Subjective Subjective: Shan Pop DO PGY1 - Internal Medicine [employer] - Hospital Progress Note Seen and examined at bedside this AM; No acute events overnight; No issues voiced by patient at this time. Reports his breathing is much improved; Harrison cp, abd pain, N/v/d/c, F, chills. Patient is going to cardiac cath by Dr. Spring today Objective - Vital Signs/Intake and Output Vital Signs (last 24 hours): Temp Pulse Resp BP Pulse Ox 98.5 F 89 18 160/78 H 98 07/17/18 23:39 07/18/18 02:00 07/17/18 23:39 07/17/18 23:39 07/17/18 23:39 Intake and Output: 07/17/18 07/18/18 18:59 06:59 Intake Total 100 Balance 100 - Medications Medications: Current Medications Amiodarone HCl (Cordarone) 200 mg PO DAILY [facility] Last Admin: 07/17/18 10:03 Dose: 200 mg Clonidine HCl (Catapres) 0.1 mg PO BID [facility] Last Admin: 07/17/18 17:29 Dose: 0.1 mg Clopidogrel Bisulfate (Plavix) 75 mg PO DAILY [facility] Last Admin: 07/17/18 10:03 Dose: 75 mg Colchicine (Colocrys) 0.6 mg PO DAILY [facility] Last Admin: 07/17/18 10:03 Dose: 0.6 mg Dextrose (Dextrose 50% Inj) 0 ml IV STAT PRN; Protocol PRN Reason: Hypoglycemia Protocol Ergocalciferol (Drisdol 50,000 Intl Units Cap) 1 cap PO Q7D [facility] Last Admin: 07/15/18 15:56 Dose: 1 cap Ferrous Gluconate (Fergon) 324 mg PO TID [facility] Last Admin: 07/17/18 18:47 Dose: 324 mg Furosemide (Lasix) 80 mg IVP DAILY [facility] Last Admin: 07/17/18 10:02 Dose: 80 mg Hydralazine HCl (Apresoline) 25 mg PO QID PRN PRN Reason: for sbp>160 Dextrose (Dextrose 5% In Water 1000 Ml) 1,000 mls @ 0 mls/hr IV .Q0M PRN; Protocol; Per Protocol PRN Reason: Hypoglycemia Protocol Milrinone Lactate/Dextrose (Primacor 20mg/100ml D5w) 100 mls @ 8.638 mls/hr IV .[id number] PRN; Protocol; 0.2 MCG/KG/MIN PRN Reason: TITRATE PER MD ORDER Last Admin: 07/17/18 22:02 Dose: 0.2 mcg/kg/min, 8.638 mls/hr Insulin Detemir (Levemir) 50 unit SC BID [facility] Last Admin: 07/17/18 10:01 Dose: Not Given Insulin Human Lispro (Humalog) 20 units SC AC [facility] Last Admin: 07/17/18 17:28 Dose: 20 units Insulin Human Lispro (Humalog High) 0 units SC Q6H [facility] PRN Reason: Protocol Last Admin: 07/18/18 02:02 Dose: Not Given Metolazone (Zaroxolyn) 5 mg PO BID [facility] Stop: 07/22/18 18:01 Metoprolol Tartrate (Lopressor) 25 mg PO BID [facility] Last Admin: 07/17/18 17:28 Dose: 25 mg Non-Formulary Medication (Desloratadine [Clarinex]) 5 mg PO DAILY [facility] Last Admin: 07/17/18 10:18 Dose: Not Given Non-Formulary Medication (Febuxostat [Uloric]) 80 mg PO DAILY [facility] Last Admin: 07/17/18 10:19 Dose: Not Given Non-Formulary Medication (Nebivolol [Bystolic]) 10 mg PO DAILY [facility] Last Admin: 07/14/18 10:53 Dose: Not Given Prednisone (Prednisone Tab) 30 mg PO DAILY [facility] Last Admin: 07/17/18 10:04 Dose: 30 mg Spironolactone (Aldactone) 25 mg PO BID [facility] Last Admin: 07/17/18 17:28 Dose: 25 mg Vitamin B Complex/Vit C/Folic Acid (Nephro-Juan) 1 tab PO 0800 [facility] Last Admin: 07/17/18 08:02 Dose: 1 tab - Labs Labs: 07/17/18 05:40 07/17/18 05:40 Physical Exam - Constitutional Appears: No Acute Distress - Head Exam Head Exam: ATRAUMATIC, NORMAL INSPECTION - Eye Exam Eye Exam: Normal appearance - ENT Exam ENT Exam: Mucous Membranes Moist - Respiratory Exam Respiratory Exam: Clear to Ausculation Bilateral. absent: Rales, Rhonchi, Wheezes, Respiratory Distress - Cardiovascular Exam Cardiovascular Exam: REGULAR RHYTHM, +S1, +S2. absent: Gallop, Rubs, Murmur - GI/Abdominal Exam GI & Abdominal Exam: Distended, Dull to percussion, Edematous, Pitting, some cellulitic changes appreciated, No tenderness - Extremities Exam Additional comments: 3+ pitting edema on bilateral lower extremities. 3+ pitting edema on bilateral upper extremities L upper extremity more edematous than left; some tenderness to palpation of the elbow wrist, and knuckle. - Neurological Exam Neurological Exam: Alert, Awake, Oriented x3 - Psychiatric Exam Psychiatric exam: Normal Affect, Normal Mood - Skin Skin Exam: Dry, Intact, Warm Assessment and Plan - Assessment and Plan (Free Text) Assessment: 52 year old male with past medical history of CHF, CKD (Stage III), recurrent UTI's, CAD s/p stent placement, DM, KENDALL (not on CPAP), gout and osteoarthritis who presents with progressively worsening edema of the lower extremities and abdomen over the past 12 months. Plan: Acute Systolic CHF Exacerbation - EF 20% on this admission; Down from 50% 12/15 - CXR: no change in cardiomegaly; pulmonary congestion - Holding diuretics for one day due to cardiac cath - C/w Aldactone 25mg PO BID, and Metalozone 5mg BID - C/w Amiodarone 200 mg PO QD, Milrinone drip, and Metoprolol 25 mg PO BID - Echocardiogram; LVEF 20% - IO: -5L total this admission - Patient for cardiac cath today by Dr. Spring - Patient was NPO after midnight - Cardiology Consulted - Dr. Spring - Nephrology Consulted - Dr. Vega SUSAN in setting of CKD III - Pre-renal SUSAN w/ Nephrotic Syndrome - Cr trending towards baseline - 24Hr urine Protein 9620 - Continue monitoring Cr - Renal ultrasound: Renal veins patent bilaterally, no hydronephrosis - Bladder ultrasound: wnl - Diuretics being held at this time for cath - Nephrology Following - Dr. Vega Gout flare - Likely chronic, 2/2 to CKD vs. diet - No need for steroid injection as per Ortho at this time - Continue Colchicine 0.6mg PO BID - Continue febuxostat - Oral prednisone 30mg Daily - Avoiding NSAIDS secondary to CKD status - Forearm xray - Forearm swelling; no osseous abnormality - Hand xray - Soft tissue swelling w/o osseous abnormality; punctate foreign bodies within soft tissues - UE/LE US: No DVT - Ortho consulted - Dr. Harding Hepatitis C - Hepatitis C antibody is reactive - Patient was unaware of his status and was updated on the results Hypokalemia- resolved - Repleted - M.1 - Will continue to monitor Hx of CAD s/p stent placement - Plavix 75 QD - Cardiology consulted DM2 - Levamir 50 BID; Will resume after cath - Humalog 6 AC - ISS High protocol; Q6H for increased coverage - Accucheck Q6H - Will resume coverages to [facility] once patient is no longer NPO for cath - A1C 9.6 - Carb consistent diet - Nutrition referral Hx Hypertension - Clonidine - 0.1 BID - Hydralazine 25mg QID PRN - Holding Bystolic - 10mg QD DVT ppx - SCDs Dispo: Continued inpatient admission at this time for management of acute CHF exacerbation, SUSAN in setting of CKD, and Gout Flare Patient seen, examined, and case discussed w/ attending physician Dr. Bess Pop DO PGY1 Internal Medicine [employer] - Pager [phone] <Bess Pop R - Last Filed: 07/19/18 07:26> Objective - Vital Signs/Intake and Output Vital Signs (last 24 hours): Temp Pulse Resp BP Pulse Ox 98.5 F 83 20 145/73 96 07/19/18 05:50 07/19/18 05:50 07/19/18 05:50 07/19/18 05:50 07/19/18 05:50 Intake and Output: 07/19/18 07/19/18 06:59 18:59 Intake Total 1105 Output Total 1450 Balance -345 - Medications Medications: Current Medications Amiodarone HCl (Cordarone) 200 mg PO DAILY [facility] Last Admin: 07/18/18 09:44 Dose: 200 mg Atorvastatin Calcium (Lipitor) 40 mg PO DIN [facility] Last Admin: 07/18/18 17:57 Dose: 40 mg Clonidine HCl (Catapres) 0.1 mg PO BID [facility] Last Admin: 07/18/18 17:57 Dose: 0.1 mg Clonidine HCl (Catapres) 0.1 mg PO Q1 PRN PRN Reason: hypertension Last Admin: 07/19/18 00:06 Dose: 0.1 mg Clopidogrel Bisulfate (Plavix) 75 mg PO DAILY [facility] Last Admin: 07/18/18 09:45 Dose: 75 mg Colchicine (Colocrys) 0.6 mg PO DAILY [facility] Last Admin: 07/18/18 09:45 Dose: 0.6 mg Dextrose (Dextrose 50% Inj) 0 ml IV STAT PRN; Protocol PRN Reason: Hypoglycemia Protocol Ergocalciferol (Drisdol 50,000 Intl Units Cap) 1 cap PO Q7D [facility] Last Admin: 07/15/18 15:56 Dose: 1 cap Ferrous Gluconate (Fergon) 324 mg PO TID [facility] Last Admin: 07/18/18 17:57 Dose: 324 mg Furosemide (Lasix) 80 mg IVP DAILY [facility] Last Admin: 07/18/18 09:37 Dose: 80 mg Dextrose (Dextrose 5% In Water 1000 Ml) 1,000 mls @ 0 mls/hr IV .Q0M PRN; Protocol; Per Protocol PRN Reason: Hypoglycemia Protocol Milrinone Lactate/Dextrose (Primacor 20mg/100ml D5w) 100 mls @ 8.638 mls/hr IV .[id number] PRN; Protocol; 0.2 MCG/KG/MIN PRN Reason: TITRATE PER MD ORDER Last Admin: 07/19/18 00:04 Dose: 0.2 mcg/kg/min, 8.638 mls/hr Insulin Detemir (Levemir) 50 unit SC BID [facility] Last Admin: 07/18/18 17:55 Dose: 50 units Insulin Human Lispro (Humalog) 20 units SC AC [facility] Last Admin: 07/18/18 17:58 Dose: 20 units Insulin Human Lispro (Humalog High) 0 units SC ACHS [facility] PRN Reason: Protocol Last Admin: 07/18/18 22:07 Dose: 3 units Metolazone (Zaroxolyn) 5 mg PO BID [facility] Stop: 07/22/18 18:01 Metoprolol Tartrate (Lopressor) 25 mg PO BID [facility] Last Admin: 07/18/18 17:58 Dose: 25 mg Non-Formulary Medication (Desloratadine [Clarinex]) 5 mg PO DAILY [facility] Last Admin: 07/18/18 09:46 Dose: Not Given Non-Formulary Medication (Febuxostat [Uloric]) 80 mg PO DAILY [facility] Last Admin: 07/18/18 09:46 Dose: Not Given Non-Formulary Medication (Nebivolol [Bystolic]) 10 mg PO DAILY [facility] Last Admin: 07/14/18 10:53 Dose: Not Given Prednisone (Prednisone Tab) 30 mg PO DAILY [facility] Last Admin: 07/18/18 09:43 Dose: 30 mg Spironolactone (Aldactone) 25 mg PO BID [facility] Last Admin: 07/18/18 17:57 Dose: 25 mg Vitamin B Complex/Vit C/Folic Acid (Nephro-Juan) 1 tab PO 0800 [facility] Last Admin: 07/18/18 08:17 Dose: 1 tab - Labs Labs: 07/19/18 06:30 07/18/18 05:50 Attending/Attestation - Attestation I have personally seen and examined this patient.: Yes I have fully participated in the care of the patient.: Yes I have reviewed all pertinent clinical information, including history, physical exam and plan: Yes Notes (Text): Patient seen and examined by me at 10AM with resident 07/18/18. Case including HPI, physical exam, and assessment and plan discussed with resident. Agree with above with following additions/corrections. Patient is a 52 year old male with past medical history significant for CHF, chronic kidney disease stage III, recurrent UTIs, coronary artery disease status post stent placement, type 2 diabetes, obstructive sleep apnea not on CPAP, gout, osteoarthritis, and edema of lower extremities and abdomen that presented to the emergency room with shortness of breath and gout flare of left wrist/hand. Patient states that he is feeling a little better. States left arm and wrist pain has improved but still hurts. No chest pain or shortness of breath. No abdominal pain or pain in his legs. He states his abdomen feels a little less "tight" today. No headaches or dizziness. No fevers or chills. No nausea or vomiting. No dysuria. No diarrhea or constipation. Physical exam: Gen: Awake and alert sitting up in bed in no acute distress HEENT: Normocephalic, atraumatic. Extraocular muscles intact, pupils equal reactive. No scleral icterus. Oropharynx is pink and moist. Neck is supple. Cardiovascular: Normal rhythm. Normal S1, S2. No murmurs, rubs, or gallops appreciated, bilateral lower extremity pitting edema Pulmonary: Normal respiratory effort. No rhonchi, rales or wheezing appreciated. Gastrointestinal: Obese habitus. Abdomens feel hard secondary to edema, nontender, appears distended, positive pitting edema noted, positive bowel sounds all 4 quadrants, no guarding. Musculoskeletal: Moves all extremities. No calf tenderness. Positive left wrist tenderness Central nervous system: AAO x 3. CN 2-12 grossly intact. Dermatologic: Skin warm and dry Assessment and plan: Patient is a 52 year old male with past medical history significant for CHF, chronic kidney disease stage III, recurrent UTIs, coronary artery disease status post stent placement, type 2 diabetes, obstructive sleep apnea not on CPAP, gout, osteoarthritis, and edema of lower extremities and abdomen that presented to the emergency room with shortness of breath and gout flare of left wrist/hand. 1. Acute systolic CHF exacerbation. Possible cardiorenal syndrome. Improving. Continue Lasix, metolazone, Lopressor, and spironolactone. Continue amiodarone 200 mg daily. Continue with milrinone drip. Continue to monitor ins and outs. Continue to monitor daily weights. No DARWIN-I/ARB secondary to SUSAN. 2-D echo per radiologist showed left ventricle is borderline dilated, normal left ventricular wall thickness, systolic function is severely impaired, global hypokinesis of the left ventricle, mitral regurgitation is moderate, mild pulmonary hypertension. Cardiology following, recommendations appreciated. Nephrology following, recommendations appreciated. Patient for cardiac catheterization today. Continue to monitor on telemetry. 2. SUSAN on CKD. Likely cardiorenal. Slowly improving. Nephrology following, recommendations appreciated. Renal ultrasound per radiologist shows very limited study, visualized main renal veins are patent bilaterally, no hydronephrosis. Bladder ultrasound per radiologist shows normal capacitance bladder, no bladder wall or intra-luminal abnormalities, no post void residual. No DARWIN-I/ARB secondary to SUSAN. Continue to monitor 3. Gout flare. Improving. Continue prednisone and colchicine. Left forearm x- ray per radiologist shows soft tissue swelling without acute articular or osseous abnormality. Left hand x-ray per radiologist shows soft tissue swelling without acute or osseous abnormality, punctate foreign bodies within soft tissues. Orthopedics is following, recommendations appreciated. Left upper extremity venous doppler negative for DVT. 4. Anasarca. Likely secondary to #1 and 2. Continue diuresis with lasix, metolazone, and spironolactone Abdominal ultrasound per radiologist shows no cholelithiasis or biliary dilatation, mild hepatomegaly, diffuse increased echogenicity in the liver may reflect hepatic steatosis however parenchymal infectious/inflammatory etiologies cannot be entirely excluded. Bilateral lower extremity venous dopplers negative for DVT 5. Hepatitis C positive. Patient advised that he will need further workup as an outpatient with either gastroenterology or infectious disease doctor. Patient states that he did have blood transfusions in the past. 6. History of coronary artery disease status post stent placement. Cardiology following, recommendations appreciated. Patient for cardiac catheterization today. Continue metoprolol and Plavix. 7. Hypoxic on ABG. May be chronic and secondary to possibly underlying KENDALL. Pulmonary consulted. 8. Type 2 diabetes. Continue Levemir, insulin sliding scale, Humalog before meals. Monitor Accu-Cheks. 9. Hypertension. Continue clonidine, Lopressor, and Lasix. Continue hydralazine as needed 10. Anemia. Continue with oral iron supplement. Continue to monitor CBC. 11. Vitamin D deficiency. Continue with 50,000 international units every 7 days. Case was discussed in detail with the patient and patients at bedside regarding current diagnosis and treatment plan.
[2018-07-18 06:36] LABS: EOS # 0.1 (0.0-0.7); EOS % 0.9 % (1.5-5.0); GRAN # 3.69 (1.4-6.5); GRAN % 54.8 % (50.0-68.0); HEMOGLOBIN 10.8 g/dL (14.0-18.0); LYMPH # 2.3 (1.2-3.4); LYMPH % 34.7 % (22.0-35.0); MEAN CELL VOLUME 95.5 fl (80.0-105.0); MEAN CORPUSCULAR HEMOGLOBIN 32.4 pg (25.0-35.0); MEAN PLATELET VOLUME 10.2 fl (7.0-11.0); MONO # 0.7 (0.1-0.6); MONO % 9.6 % (1.0-6.0); RBC 3.33 10^6/uL (3.5-6.1); RED CELL DISTRIBUTION WIDTH 12.2 % (11.5-14.5); WHITE BLOOD COUNT 6.7 10^3/ul (4.5-11.0)
[2018-07-18 06:46] LABS: ALB/GLOB RATIO 0.8 (1.1-1.8); ALBUMIN 2.9 g/dL (3.0-4.8); CALCIUM 8.6 mg/dL (8.4-10.5)
[2018-07-18] MEDS: Insulin Lispro 1 UNITS/0.01 ML SC SCH ×3 (08:17→17:58)
[2018-07-18] MEDS: Multivitamin Vitamin B Complex (Nephro-Vite) Tab PO SCH (08:17)
[2018-07-18] MEDS: DESLORATADINE 5 MG PO SCH (09:46)
[2018-07-18] MEDS ORDERED: Lidocaine PF 2% (5 ml) Inj (For Cardiac Arrhy) ONE (12:10)
[2018-07-18] MEDS ORDERED: Iodixanol 320 MG/ML 100 ML BOTTLE IV ONE (12:11)
[2018-07-18] MEDS ORDERED: Iohexol 350mgl/ml 50 ML ONE (12:11)
[2018-07-18] MEDS ORDERED: Iodixanol 320 MG/ML 200 ML BOTTLE IV ONE (12:11)
[2018-07-18] MEDS ORDERED: Phenylephrine 10 mg/ml Inj ONE (12:12)
[2018-07-18] MEDS ORDERED: Nitroglycerin 50mg in D5W 50 MG/250 ML BOTTLE IV ONE (12:13)
[2018-07-18] MEDS: Milrinone 20mg/100ml D5W 100 ML IV PRN (12:15)
[2018-07-18] MEDS ORDERED: Midazolam 2 MG/2 ML VIAL ONE ×3 (12:47→13:16)
[2018-07-18] MEDS ORDERED: Naloxone 0.4 mg/ml Inj (Adult) ONE (13:18)
[2018-07-18] MEDS ORDERED: Sodium Chloride 0.9% 1,000 ML IV SCH (14:00)
--- NOTE | 2018-07-18 14:25 | CARDCATH ---
Copied To: Tarik Spring MD Attending MD: Tarik Spring MD PROCEDURE DATE: 07/18/2018 CARDIAC CATHETERIZATION AND PTCA HISTORY: The patient is a 52-year-old male, who presents with CHF. He was found to have an ejection fraction of 21% on an echocardiogram. Because of his history of coronary disease and intermittent shortness of breath and chest pain, the patient was brought for cardiac catheterization. PROCEDURE: Left heart catheterization with coronary arteriography, left ventriculogram as well as percutaneous transluminal coronary angioplasty and stent of the circumflex lesion with a drug-eluting stent. The right femoral artery was cannulated with a 6-Frisian sheath. There were no complications. I performed moderate sedation, which included the presence of an independent trained observer that assisted in monitoring the patient's level of consciousness and physiologic status. After administration of Versed and fentanyl, my intra service time was 30 minutes. The findings on catheterization revealed a left ventricle that was mildly hypokinetic with an EF of approximately 40-45%. This was on IV ionotropic therapy. His coronary anatomy revealed the left main artery was unremarkable. The LAD and diagonal vessels revealed intimal irregularities without critical lesions. The circumflex artery revealed a long 80% stenoses in its midportion. The RCA was a dominant vessel and found to be free of significant disease. The patient was started on intravenous Angiomax on the fluoroscopic guide, the guiding catheter was placed in the ostium of the left main artery. 0.014 ATW wire was used to cross the long critical lesion in the circumflex artery. A 2.75 x 30 mm drug-eluting stent was placed and deployed at 14 atmospheres of pressure in the circumflex lesion. After the balloon deflation and removal, repeat coronary arteriography revealed an excellent result with no residual stenosis and LISSY-3 flow. Angio-Seal was used to close the femoral artery site. The patient tolerated the procedure well. In summary, the procedure was successful for PTCA and stent of a long critical lesion in the mid circumflex artery. Cardiac catheterization revealed single-vessel CAD. LV function revealed an EF of 40-45%, which is markedly better than the EF of 21% on echocardiogram. This is while the patient is on IV ionotropic therapy. Given these findings, the patient will need to remain on aspirin indefinitely and Plavix for at least a year. He will need to undergo a strict cardiac risk reduction program, which will require weight loss and dietary changes. Tarik Spring MD [facility] # [id number]
[2018-07-18] MEDS: Insulin Detemir 100 units/ml Vial (Levemir) SC SCH (17:55)
--- NOTE | 2018-07-18 20:54 | CARD ---
APPROVED REPORT Date of service: 07/18/2018 EKG Measurement Heart [id number] <Conclusion> Normal sinus rhythm Low voltage QRS Possible Anterolateral infarct, age undetermined Abnormal ECG
[2018-07-19] MEDS: Milrinone 20mg/100ml D5W 100 ML IV PRN (00:04)
[2018-07-19 05:51] VITALS: O2SAT 96
[2018-07-19 07:07] LABS: BASO # 0.01 K/mm3 (0.0-2.0); BASO % 0.1 % (0.0-3.0); EOS # 0.1 (0.0-0.7); EOS % 0.9 % (1.5-5.0); GRAN # 3.51 (1.4-6.5); GRAN % 50.5 % (50.0-68.0); HEMOGLOBIN 10.3 g/dL (14.0-18.0); LYMPH # 2.6 (1.2-3.4); LYMPH % 36.8 % (22.0-35.0); MEAN CELL VOLUME 95.6 fl (80.0-105.0); MEAN CORPUSCULAR HEMOGLOBIN 32.4 pg (25.0-35.0); MEAN CORPUSCULAR HGB CONC 33.9 g/dl (31.0-37.0); MEAN PLATELET VOLUME 9.9 fl (7.0-11.0); MONO # 0.8 (0.1-0.6); MONO % 11.7 % (1.0-6.0); RBC 3.18 10^6/uL (3.5-6.1); RED CELL DISTRIBUTION WIDTH 12.2 % (11.5-14.5)
[2018-07-19 07:44] LABS: ALB/GLOB RATIO 0.8 (1.1-1.8); ALBUMIN 2.6 g/dL (3.0-4.8); CALCIUM 8.8 mg/dL (8.4-10.5)
[2018-07-19] MEDS: Insulin Lispro (HUMAlog) HIGH Coverage SC SCH ×2 (08:03→12:21)
[2018-07-19] MEDS: Insulin Lispro 1 UNITS/0.01 ML SC SCH ×2 (08:03→12:20)
[2018-07-19] MEDS: Insulin Detemir 100 units/ml Vial (Levemir) SC SCH (09:20)
[2018-07-19] MEDS: Multivitamin Vitamin B Complex (Nephro-Vite) Tab PO SCH (09:21)
[2018-07-19] MEDS: DESLORATADINE 5 MG PO SCH (09:23)
--- NOTE | 2018-07-19 11:11 | PN ---
Copied To: Tarik Spring MD Attending MD: Tarik Spring MD DATE: 07/19/2018 CARDIOLOGY FOLLOWUP SUBJECTIVE: The patient is ambulating in the room without shortness of breath. His pedal edema is persistent. PHYSICAL EXAMINATION: VITAL SIGNS: Blood pressure is 136/71, heart rates in the 80s. NECK: Negative JVD. LUNGS: Clear to auscultation. HEART: Reveals S1, S2. EXTREMITIES: Persistent edema. LABORATORY DATA: BUN and creatinine is 48 and 1.7, hemoglobin is 10.3. IMPRESSION: 1. Stable post percutaneous transluminal coronary angioplasty and stent of the circumflex artery. 2. Coronary artery disease. 3. Dilated cardiomyopathy with an ejection fraction on IV milrinone of approximately 40%-45%. 4. Anemia. 5. Chronic renal insufficiency. PLAN: Given these findings, the patient is stable for discharge today. We will DC his IV milrinone. We will continue on diuretics at home. I have discussed with the patient about the need for weight loss as well as low-salt diet. The patient is ambulating. We will DC milrinone today. Tarik Spring MD
[2018-07-19 11:55] VITALS: BP 177/98; PULSE 70; RESP 21; TEMP 98.1
--- NOTE | 2018-07-19 12:02 | CP.PCM.PN ---
Subjective - Date & Time of Evaluation Date of Evaluation: 07/19/18 Time of Evaluation: 12:00 - Subjective Subjective: Nephrology Consultation Note: Assessment: Stable Acute Kidney Injury (N17.9) likely cardio-renal and hemodynamic Diabetic chronic Kidney Disease (E11.22)/Hypertensive Chronic Kidney Disease ( I12.9) Chronic Kidney Disease (N18.2) Stage 3 with 9 gram proteinuria (R80.9) Anemia (D64.9), HTN (I12.9) morbid obesity, fluid overload moderate pulm HTN, diastolic CHF KENDALL, chronic respi acidosis with metabolic compensation Hep C + severe sys CHF LVEF 20% ? Obesity hypo-ventilation syndrome with compensated chronic respi acidosis with hypoxia with metabolic alkalosis Vit D def CAD s/p stent Plan No acute need for renal replacement therapy at this time. Hypertension control with meds as ordered. Patient not on ACEI/ARB due to SUSAN, consider to add once stable. started on aldactone by cardiology Monitor Input/Output, daily weights and renal function with basic metabolic panel hold diuretics for today and resume from tomorrow. oral fluid restriction to 1000 mL/day supplement electrolytes as needed started Fe and MVI, weekly Vit D CHF optimization by cardiology treatment of Hep C by GI or ID as outpt kidney biopsy not likely to be feasible or useful at this time due to his morbid obesity/severe CHF/antiplatelets need and limitation of treatment options. may consider pulmonary eval as well for abnormal ABG sent RA factor and cryo level as well. pt was advised that it will be preferable to wait in hospital till tomorrow and monitor renal function but he refused and wants to be d/c NOW. pt was recommended to check BMP tomorrow and see me in office on tuesday Dose meds/antibiotics for reduced GFR. Avoid fleets enema/magnesium based laxatives. Avoid nephrotoxins/NSAIDs/ iodinated contrast (unless needed emergently) Glycemic control Further work up/management as per primary team weight loss, lifestyle modifications, diet/exercise needed Thanks for allowing me to participate in care of your patient. Will follow patient with you. Please call if any Qs. had d/w team Dr Miquel Vega Office: [phone] Chief Complaint; legs swelling and abdomen distension reason for consult: SUSAN and CKD HPI: Pt is a 52 M with hx of diabetes Mellitus (10 years) without known retinopathy, hypertension (many years) morbid obesity, episodes of SUSAN since 2002 with peaked cr 2.0 and baseline close to 1.5-2.0 since 2018, CKD 3, KENDALL not on CPAP presented with complaints of worsening leg swelling and abdomen distension over last few weeks. pt also c/o left arm swelling and gout flare says had gained 170 pounds over last 1 month although he is following diet control. Denies OTC/herbal meds or NSAIDs No recent iodinated contrast exposure. No obvious episodes of low BP. ROS: feels good, want to go home NOW Cardiovascular: No chest pain. Pulmonary: improved shortness of breath n Gastrointestinal: denies abdominal pain No nausea. No vomiting. Genitourinary: No pain while urinating. Denies blood in urine. no symptoms of BPH All other negative Physical Examination: General Appearance: Comfortable, in no acute respiratory distress, co-operative . morbid obesity Vitals reviewed and noted as below Head; Atraumatic, normocephalic ENT: no ulcers no thrush. Tongue is midline. Oropharynx: no rash or ulcers. EYES: Pupils are equal, round and reactive to light accommodation. Eye muscles and extraocular movement intact. Sclera is anicteric. Neck; supple no lymphadenopathy, no thyromegaly or bruit Lungs: Normal respiratory rate/effort. Breath sounds bilateral decreased at bases Heart: Normal rate. s1s2 normal. No rub or gallop. Extremities: 2-3+ edema. No varicose veins Neurological: Patient is alert, awake and oriented to person, place and time. No focal deficit. Strength bilateral appropriate and equal Skin: Warm and dry. Normal turgor. No rash. Palpitation: Normal elasticity for age Abdomen: Abdomen is soft. Bowel sounds +. There is no abdominal tenderness, no guarding/rigidity no organomegaly. abdomen wall edema + very distended hence exam limited Psych: normal insight and normal affect/mood MSK: no joint tenderness or swelling. Digits and nails normal, no deformity : kidney or bladder not palpable but exam limited due to obesity Labs/imaging reviewed. Past medical history, past surgical history, family history, social history, allergy reviewed and noted as below Family hx: no hx of CKD. Rest non-contributory echo moderate pulm HTN renal sono with doppler and bladder sono: WNL kappa/lambda WNL and SPEP/VINCE neg c3/c4 normal LVEF 20% Objective - Vital Signs/Intake and Output Vital Signs (last 24 hours): Temp Pulse Resp BP Pulse Ox 98.1 F 70 21 177/98 H 96 07/19/18 11:55 07/19/18 11:55 07/19/18 11:55 07/19/18 11:55 07/19/18 05:50 Intake and Output: 07/19/18 07/19/18 06:59 18:59 Intake Total 1105 Output Total 1450 Balance -345 - Medications Medications: Current Medications Atorvastatin Calcium (Lipitor) 40 mg PO DIN [facility] Last Admin: 07/18/18 17:57 Dose: 40 mg Clonidine HCl (Catapres) 0.1 mg PO BID [facility] Last Admin: 07/19/18 09:22 Dose: 0.1 mg Clonidine HCl (Catapres) 0.1 mg PO Q1 PRN PRN Reason: hypertension Last Admin: 07/19/18 00:06 Dose: 0.1 mg Clopidogrel Bisulfate (Plavix) 75 mg PO DAILY [facility] Last Admin: 07/19/18 09:22 Dose: 75 mg Colchicine (Colocrys) 0.6 mg PO DAILY [facility] Last Admin: 07/19/18 09:21 Dose: 0.6 mg Dextrose (Dextrose 50% Inj) 0 ml IV STAT PRN; Protocol PRN Reason: Hypoglycemia Protocol Ergocalciferol (Drisdol 50,000 Intl Units Cap) 1 cap PO Q7D [facility] Last Admin: 07/15/18 15:56 Dose: 1 cap Ferrous Gluconate (Fergon) 324 mg PO TID [facility] Last Admin: 07/19/18 09:21 Dose: 324 mg Furosemide (Lasix) 80 mg IVP DAILY [facility] Last Admin: 07/18/18 09:37 Dose: 80 mg Dextrose (Dextrose 5% In Water 1000 Ml) 1,000 mls @ 0 mls/hr IV .Q0M PRN; Protocol; Per Protocol PRN Reason: Hypoglycemia Protocol Insulin Detemir (Levemir) 50 unit SC BID [facility] Last Admin: 07/19/18 09:20 Dose: 50 units Insulin Human Lispro (Humalog) 20 units SC AC [facility] Last Admin: 07/19/18 08:03 Dose: Not Given Insulin Human Lispro (Humalog High) 0 units SC ACHS [facility] PRN Reason: Protocol Last Admin: 07/19/18 08:03 Dose: Not Given Metolazone (Zaroxolyn) 5 mg PO BID [facility] Stop: 07/22/18 18:01 Metoprolol Tartrate (Lopressor) 25 mg PO BID [facility] Last Admin: 07/19/18 09:22 Dose: 25 mg Non-Formulary Medication (Desloratadine [Clarinex]) 5 mg PO DAILY [facility] Last Admin: 07/19/18 09:23 Dose: Not Given Non-Formulary Medication (Febuxostat [Uloric]) 80 mg PO DAILY [facility] Last Admin: 07/19/18 09:23 Dose: Not Given Non-Formulary Medication (Nebivolol [Bystolic]) 10 mg PO DAILY [facility] Last Admin: 07/14/18 10:53 Dose: Not Given Prednisone (Prednisone Tab) 30 mg PO DAILY [facility] Last Admin: 07/19/18 09:21 Dose: 30 mg Spironolactone (Aldactone) 25 mg PO BID [facility] Last Admin: 07/18/18 17:57 Dose: 25 mg Vitamin B Complex/Vit C/Folic Acid (Nephro-Juan) 1 tab PO 0800 [facility] Last Admin: 07/19/18 09:21 Dose: 1 tab - Labs Labs: 07/19/18 06:30 07/19/18 06:30
--- NOTE | 2018-07-19 12:59 | CON ---
Copied To: Travis Ambrose MD Attending MD: Travis Ambrose DATE: 07/19/2018 HISTORY OF PRESENT ILLNESS: We were asked to evaluate and treat this 66-hccic-tgz man who was admitted to [facility] with chief complaint of shortness of breath. The reason for consultation is possible obstructive sleep apnea in an obese overweight patient with admission secondary to congestive heart failure. His chest x-ray was evaluated by me and revealed cardiomegaly and mild pulmonary vascular congestion. PAST MEDICAL HISTORY: Positive for chronic kidney disease, congestive heart failure, coronary artery disease, diabetes mellitus, obstructive sleep apnea, not on CPAP, gout, osteoarthritis and chronic edema of lower extremities. He has a history of gaining 40-50 pounds over the past year. He was previously evaluated by Dr. Spring who found him to have pulmonary congestion and pulmonary hypertension. FAMILY HISTORY: Negative for inherited diseases. PAST SURGICAL HISTORY: Right knee arthroplasty, left temporal artery biopsy negative, left shoulder surgery. SOCIAL HISTORY: Drinks socially. Nonsmoker. Never used illicit drugs. MEDICATIONS: Reviewed by me as per MAR. Notable medications include amiodarone with no sign of pulmonary toxicity. ALLERGIES: ASPIRIN. REVIEW OF SYSTEMS: Was conducted by reviewing all sources. EAR, NOSE AND THROAT: No nasal congestion. CARDIOVASCULAR: See history of present illness. PULMONARY: History of snoring and probable obstructive sleep apnea, not on CPAP. GASTROINTESTINAL: GI workup was undertaken in the past is negative. The rest of the systems were reviewed and found to be negative. PHYSICAL EXAMINATION: VITAL SIGNS: Temperature 98, pulse 68, respirations 18, blood pressure 130/70, pulse oxymetry 97% on room air. HEAD, EAR, NOSE AND THROAT: Within normal limits. NECK: Supple with no jugular vein distention. CARDIOVASCULAR: S1, S2. No S3. Regular. PULMONARY: Diminished breath sounds, but no crackles and no wheezing. GASTROINTESTINAL: Soft, nontender, obese. No organomegaly. EXTREMITIES: 3+ pedal edema. SKIN: No cyanosis, no skin rashes. NEUROLOGIC: Limited at the present time. LABORATORY DATA: His hemoglobin on admission was 10.8, WBC was 6.1. ASSESSMENT: A [id number] with congestive heart failure, chronic kidney disease, coronary artery disease status post stent placement, diabetes mellitus, obstructive sleep apnea, not on CPAP. PLAN: Patient should be evaluated for obstructive sleep apnea on an outpatient basis. I encouraged him to call our office upon discharge and get device to evaluate overnight sleep apnea possibility. If this is present, CPAP would be initiated. As far as history of pulmonary hypertension, it is most likely secondary to left ventricular dysfunction, however, obstructive sleep apnea can significantly contribute to pulmonary hypertension and congestive heart failure. He is currently on oral prednisone for gouty arthritis. He does not require inhalation therapy. We will follow closely. Travis Ambrose MD : 07/19/2018 8:54:27 BASHIR
[2018-07-19] MEDS ORDERED: metOLazone 5 MG TAB PO SCH (18:00)
--- NOTE | 2018-07-19 22:55 | CP.PCM.DIS ---
Provider - Provider Date of Admission: 07/14/18 11:06 Attending physician: Bess Pop DO Primary care physician: Dr. Falcon Consults: Cardiology - Dr. Spring Nephrology - Dr. Vega Pulmonology - Dr. Quezada Orthopedics - Dr. Harding Time Spent in preparation of Discharge (in minutes): 40 Diagnosis - Discharge Diagnosis (1) CHF (congestive heart failure) Status: Acute Priority: High (2) SUSAN (acute kidney injury) Status: Acute Priority: High (3) CKD (chronic kidney disease) Status: Chronic Priority: High (4) DM2 (diabetes mellitus, type 2) Status: Chronic Priority: Medium (5) Gouty arthritis Status: Chronic Priority: Medium (6) HTN (hypertension) Status: Chronic Priority: Medium Hospital Course - Lab Results Lab Results: Most Recent Lab Values WBC 7.0 10^3/ul (4.5-11.0) 07/19/18 06:30 RBC 3.18 10^6/uL (3.5-6.1) L 07/19/18 06:30 Hgb 10.3 g/dL (14.0-18.0) L 07/19/18 06:30 Hct 30.4 % (42.0-52.0) L 07/19/18 06:30 MCV 95.6 fl (80.0-105.0) 07/19/18 06:30 MCH 32.4 pg (25.0-35.0) 07/19/18 06:30 MCHC 33.9 g/dl (31.0-37.0) 07/19/18 06:30 RDW 12.2 % (11.5-14.5) 07/19/18 06:30 Plt Count 333 10^3/uL (120.0-450.0) 07/19/18 06:30 MPV 9.9 fl (7.0-11.0) 07/19/18 06:30 Gran % 50.5 % (50.0-68.0) 07/19/18 06:30 Lymph % (Auto) 36.8 % (22.0-35.0) H 07/19/18 06:30 Campbell % (Auto) 11.7 % (1.0-6.0) H 07/19/18 06:30 Eos % (Auto) 0.9 % (1.5-5.0) L 07/19/18 06:30 Baso % (Auto) 0.1 % (0.0-3.0) 07/19/18 06:30 Gran # 3.51 (1.4-6.5) 07/19/18 06:30 Lymph # (Auto) 2.6 (1.2-3.4) 07/19/18 06:30 Campbell # (Auto) 0.8 (0.1-0.6) H 07/19/18 06:30 Eos # (Auto) 0.1 (0.0-0.7) 07/19/18 06:30 Baso # (Auto) 0.01 K/mm3 (0.0-2.0) 07/19/18 06:30 pCO2 56 mm/Hg (35-45) H 07/16/18 13:50 pO2 59.0 mm/Hg (80-100) L 07/16/18 13:50 HCO3 34.7 mmol/L (21-28) H 07/16/18 13:50 ABG pH 7.40 (7.35-7.45) 07/16/18 13:50 ABG Total CO2 36.4 mmol.L (22-28) H 07/16/18 13:50 ABG O2 Saturation 90.9 % (95-98) L 07/16/18 13:50 ABG O2 Content 12.7 ML/dl (15-23) L 07/16/18 13:50 ABG Base Excess 8.5 mmol/L (-2.0-3.0) H 07/16/18 13:50 ABG Hemoglobin 10.4 g/dL (11.7-17.4) L 07/16/18 13:50 ABG Carboxyhemoglobin 3.6 % (0.5-1.5) H 07/16/18 13:50 POC ABG HHb (Measured) 8.7 % (0-5) H 07/16/18 13:50 ABG Methemoglobin 1.0 % (0.0-3.0) 07/16/18 13:50 ABG O2 Capacity 14.0 mL/dl (16-24) L 07/16/18 13:50 Hgb O2 Saturation 86.7 % (95.0-98.0) L 07/16/18 13:50 FiO2 21.0 % 07/16/18 13:50 Sodium 137 mmol/L (132-148) 07/19/18 06:30 Potassium 3.9 mmol/L (3.6-5.0) 07/19/18 06:30 Chloride 93 mmol/L (98-107) L 07/19/18 06:30 Carbon Dioxide 39 mmol/L (21-33) H 07/19/18 06:30 Anion Gap 9 (10-20) L 07/19/18 06:30 BUN 48 mg/dL (7-21) H 07/19/18 06:30 Creatinine 1.7 mg/dl (0.8-1.5) H 07/19/18 06:30 Est GFR ( Amer) 51 07/19/18 06:30 Est GFR (Non-Af Amer) 42 07/19/18 06:30 POC Glucose (mg/dL) 201 mg/dL (65-110) H 07/19/18 11:24 Random Glucose 147 mg/dL (70-110) H 07/19/18 06:30 Hemoglobin A1c 9.6 % (4.2-6.5) H D 07/14/18 08:00 Uric Acid 9.0 mg/dL (3.5-8.5) H 07/16/18 06:00 Calcium 8.8 mg/dL (8.4-10.5) 07/19/18 06:30 Phosphorus 3.9 mg/dL (2.5-4.5) 07/17/18 05:40 Magnesium 2.1 mg/dL (1.7-2.2) 07/17/18 05:40 Iron 47 ug/dL (45-180) 07/14/18 06:30 TIBC 263 ug/dL (261-462) 07/14/18 06:30 % Saturation 18 % (20-55) L 07/14/18 06:30 Ferritin 297.0 ng/mL 07/15/18 06:00 Total Bilirubin 0.4 mg/dL (0.2-1.3) 07/19/18 06:30 AST 24 U/L (17-59) 07/19/18 06:30 ALT 21 U/L (7-56) 07/19/18 06:30 Alkaline Phosphatase 77 U/L (38-126) 07/19/18 06:30 Lactate Dehydrogenase 671 U/L (333-699) 07/13/18 17:17 Total Creatine Kinase 198 U/L (35-230) 07/13/18 17:17 Troponin I 0.09 ng/mL D 07/14/18 08:00 NT-Pro-B Natriuret Pep 6740 pg/mL (0-450) H 07/13/18 17:17 Total Protein 5.8 g/dL (5.8-8.3) 07/19/18 06:30 Albumin 2.6 g/dL (3.0-4.8) L 07/19/18 06:30 Globulin 3.2 gm/dL 07/19/18 06:30 Albumin/Globulin Ratio 0.8 (1.1-1.8) L 07/19/18 06:30 25-OH Vitamin D Total < 12.8 NG/ML (30.0-100.0) L 07/15/18 06:00 Free T4 1.27 ng/dL (0.78-2.19) 07/14/18 01:08 TSH 3rd Generation 3.95 mIU/mL (0.46-4.68) 07/14/18 01:08 PTH Intact Whole Molec 77 pg/mL (14-64) H 07/14/18 06:30 Urine Color Yellow (YELLOW) 07/16/18 02:00 Urine Appearance Sl cloudy (CLEAR) 07/16/18 02:00 Urine pH 6.0 (4.7-8.0) 07/16/18 02:00 Ur Specific [place] 1.020 (1.005-1.035) 07/16/18 02:00 Urine Protein 100 mg/dL (<30 mg/dL) H 07/16/18 02:00 Urine Glucose (UA) 100 mg/dL (NEGATIVE) H 07/16/18 02:00 Urine Ketones Negative mg/dL (NEGATIVE) 07/16/18 02:00 Urine Blood Small (NEGATIVE) H 07/16/18 02:00 Urine Nitrate Negative (NEGATIVE) 07/16/18 02:00 Urine Bilirubin Negative (NEGATIVE) 07/16/18 02:00 Urine Urobilinogen 0.2 E.U./dL (<1 E.U./dL) 07/16/18 02:00 Ur Leukocyte Esterase Negative Mirian/uL (NEGATIVE) 07/16/18 02:00 Urine RBC 1 - 3 /hpf (0-2) 07/16/18 02:00 Urine WBC 0 - 2 /hpf (0-6) 07/16/18 02:00 Ur Epithelial Cells 0 - 2 /hpf (0-5) 07/16/18 02:00 Hyaline Casts 0 - 2 /hpf 07/14/18 09:54 Fine Granular Casts 0 - 2 /hpf (0-2) 07/14/18 09:54 Urine Osmolality 518 mosm/kg (300-1000) 07/14/18 09:54 Ur Random Sodium 36 meq/L 07/14/18 09:54 Urine Collection Time 24 HOURS 07/15/18 21:30 Urine Total Volume 5200 mL (800-1400) H 07/15/18 21:30 Ur Protein 24 Hr Calc 9620 mg/24HR (42-225) H 07/15/18 21:30 Serum Immunofixation Not detected (Not Detected) 07/17/18 05:40 Urine Immunofixation Not detected (Not Detected) 07/16/18 16:17 Cycl Citrul Peptide IgG <16 Units 07/14/18 08:00 ANGIE Screen Negative (Negative) 07/14/18 08:00 Complement C3 168.0 mg/dL (88.0-165.0) H 07/14/18 08:00 Complement C4 37.5 mg/dL (14.0-44.0) 07/14/18 08:00 Hep Bs Antigen Negative (NEGATIVE) 07/14/18 06:30 Hep Bs Antibody Negative (NEGATIVE) 07/14/18 06:30 Hep B Core IgM Ab Negative (NEGATIVE) 07/14/18 06:30 Hepatitis C Antibody Reactive (NEGATIVE) 07/14/18 06:30 HIV 1&2 Antibody Screen Negative (NEGATIVE) 07/14/18 06:30 - Hospital Course Hospital Course: Shan Pop DO PGY1 Internal Medicine Drafter Assistant - Hospital Discharge Summary 52 year old male with past medical history of CHF, CKD (Stage III), recurrent UTI's, CAD s/p stent placement, DM, KENDALL (not on CPAP), gout and osteoarthritis presented to [facility] ED on 07/13/18 from PCP office with progressively worsening edema of the lower extremities and abdomen over the past 12 months. He reported a weight gain from 270lb to 410lb over the past 12 months. Patient endorsed orthopnea and pulmonary complaints on admission. Patient also expresses issues with his chronic gouty arthritis for which his entire left arm had been swollen 2 days prior to admission. During this admission, hepatic, renal, and cardiovascular etiologies for his anasarca were explored. In the ED, chest xray revealed no change in moderate cardiomegaly or pulmonary venous congestion, however no evidence of active disease was appreciated. He was diuresed aggressively throughout his hospital course. EKG in ED showed no ST segment elevations. Hepatic workup revealed patient had a positive HepC Ab, and mild hepatommegaly reflective of hepatic steatosis vs infectious etiology on abdominal ultra sound. Patient is to follow up with PMD in regards to further testing for hepatitis C. Cardiac work up consisted of an echocardiogram which revealed an EF of 20%, Mild mitral regurgitation, and pulmonary hypertension. Patient subsequently underwent cardiac cath by Dr. Spring and required deployment of FLORY in the Circumflex artery. Throughout hospital course, patient was on milrinone drip and monitored in telemetry unit. Renal work up revealed patient had an SUSAN in the setting of his Stage III CKD. Renal ultrasound showed no evidence of hydronephrosis. Ultrasound of bladder was unremarkable. Throughout his course, patient was aggressively diuresed with Lasix, Metolazone , and Spironolactone. Diuretic medications were held for cath procedure, and resumed post procedure. Per Nephrology, patient is to follow up post discharge to evaluate kidney function post catheterization. In regards to his complains of L arm pain, orthopedic surgery was consulted, and Xray of the hand+ forearm were obtained. Forearm Xray revealed soft tissue swelling without acute articular or osseous abnormality. Hand xray read as soft tissue swelling without acute articular or osseous abnormality. punctate foreign bodies within soft tissues. He was continued on he received 6 days of 30mg prednisone, and was discharged with a taper. Patient was also continued on febuxostat, and colchicine. Patient was seen and examined at bedside prior to discharge. No acute events overnight, No issues post catheterization. Denies any chest pain , palpitations, worsening of SOB, Abd pain, N/V/D/C, hematuria, dysuria, worsening of edema, numbness/tingling, focal weakness, headache, blurry vision. Patient was discharged with the following instructions: Please follow up with your primary care doctor, Dr. Falcon within 3-5 days Please follow up with your pantograph watcher (kidney doctor), Dr. Vega within 2-5 days Please follow up with your chief ii dispatcher (heart doctor), Dr. Spring within 3-5 days You were given a prescription for BMP (lab work) by Dr. Vega, please complete this lab work 07/20/18 and follow up with Dr. Vega Please stop taking the following home medications Levemir 80mg twice a day--medication dosing changed Novolog 48mg with meals--medication dosing changed. Prednisone 30mg daily Potassium 10mEq Daily Please continue taking the following home medications Clonidine 0.1mg Twice a day Vitamin D3 1000u Daily Colchicine 0.6mg Three times a day as needed Clarinex 5mg daily As needed Febuxostat 80mg Daily Multivitamin Daily Plavix 75 Daily Pramlintide 60u twice a day Please start taking the following new medications Metolazone 5mg Daily Ferrous gluconate 324 Three times a day Lasix 40mg twice a day Levemir 50u twice a day Humalog 20u with meals Spironolactone 25mg twice a day Prednisone as directed. Please check your sugars before meals and nightly; please record your sugars and bring them to your primary care Please continue checking your weight daily; if you have more than 2 lbs of weight gain in a day, or more than 5 lbs in a week, please contact your primary care physician immediately Please eat a low fat NO salt diet Please partake in an exercise program for >30 min/ day 3-5 days/ week Please avoid drinking excessive fluids, please drink less than 1 liter of fluids daily If your symptoms return, please return to the nearest emergency department ----- Patient is medically optimized for discharge at this time. - Date & Time of H&P Date of H&P: 07/13/18 Time of H&P: 21:05 Discharge Exam - Head Exam Head Exam: ATRAUMATIC, NORMAL INSPECTION - Eye Exam Eye Exam: EOMI, PERRL. absent: Scleral icterus - ENT Exam ENT Exam: Mucous Membranes Moist - Respiratory Exam Respiratory Exam: Clear to PA & Lateral, NORMAL BREATHING PATTERN, UNREMARKABLE. absent: Rhonchi, Wheezes, Respiratory Distress - Cardiovascular Exam Cardiovascular Exam: RRR, +S1, +S2. absent: Systolic Murmur - GI/Abdominal Exam GI & Abdominal Exam: Normal Bowel Sounds, Soft. absent: Tenderness Additional comments: Diffuse pitting edema throughout abdomen; Dull to percussion - Exam Additional comments: No scrotal edema - Extremities Exam Additional comments: Upper extremities w/ BL edema L UE w/ minimal tenderness to movement of elbow, wrist, and knuckle 3+ pitting edema of BL LE - Neurological Exam Neurological exam: Alert, CN II-XII Intact, Oriented x3 - Psychiatric Exam Psychiatric exam: Normal Affect, Normal Mood - Skin Skin Exam: Dry, Intact, Warm Discharge Plan - Discharge Medications Prescriptions: Clopidogrel [Plavix] 75 mg PO DAILY #30 tab Ferrous Gluconate [Fergon] 324 mg PO TID #90 tab Furosemide [Lasix] 40 mg PO BID #28 tab Insulin Aspart [Novolog] 20 unit SC AC #1 vial metOLazone [Zaroxolyn] 5 mg PO DAILY #14 tab Nebivolol [Bystolic] 10 mg PO DAILY #30 tab predniSONE [Prednisone] 10 mg PO DAILY #7 tab Rosuvastatin Calcium 20 mg PO DAILY #30 tablet Spironolactone [Aldactone] 25 mg PO BID #28 tab Vitamin B Complex/Vit C/Folic [Nephro-Juan] 1 tab PO 0800 #30 tab - Follow Up Plan Condition: STABLE Disposition: HOME/ ROUTINE Instructions: Heart Healthy Diet, Preventing Falls in the Older Adult, Heart Failure, Adult (DC), Cardiac Catheterization (DC), Coronary Stenting (DC), Heart Failure (DC) Additional Instructions: Please follow up with your primary care doctor, Dr. Falcon within 3-5 days Please follow up with your pantograph watcher (kidney doctor), Dr. Vega within 2-5 days Please follow up with your chief ii dispatcher (heart doctor), Dr. Spring within 3-5 days You were given a prescription for BMP (lab work) by Dr. Vega, please complete this lab work 07/20/18 and follow up with Dr. Vega Please stop taking the following home medications Levemir 80mg twice a day--medication dosing changed Novolog 48mg with meals--medication dosing changed. Prednisone 30mg daily Potassium 10mEq Daily Please continue taking the following home medications Clonidine 0.1mg Twice a day Vitamin D3 1000u Daily Colchicine 0.6mg Three times a day as needed Clarinex 5mg daily As needed Febuxostat 80mg Daily Multivitamin Daily Plavix 75 Daily Pramlintide 60u twice a day Please start taking the following new medications Metolazone 5mg Daily Ferrous gluconate 324 Three times a day Lasix 40mg twice a day Levemir 50u twice a day Humalog 20u with meals Spironolactone 25mg twice a day Prednisone as directed. Please check your sugars before meals and nightly; please record your sugars and bring them to your primary care Please continue checking your weight daily; if you have more than 2 lbs of weight gain in a day, or more than 5 lbs in a week, please contact your primary care physician immediately Please eat a low fat NO salt diet Please partake in an exercise program for >30 min/ day 3-5 days/ week Please avoid drinking excessive fluids, please drink less than 1 liter of fluids daily If your symptoms return, please return to the nearest emergency department Referrals: Ravindra Falcon MD [Staff Provider] - Miquel Vega MD [Staff Provider] - Tarik Spring MD [Staff Provider] -
== END 2018-07-19 14:54 | disposition home or self-care (01) | DRG 246 ==
LOC: ED 15:58 → ERH 18:09 → 2RNO 20:53 → OBSVTOIN 07-14 11:06 → 2RSO 07-18 14:10
PROVIDERS: ADMIT Hospitalist; ATTEND Hospitalist
PROC: 027034Z Dilation of Coronary Artery, One Artery with Drug-eluting Intraluminal Device, Percutaneous Approach (ICD-10-PCS; principal; 2018-07-18)
PROC: 4A023N7 Measurement of Cardiac Sampling and Pressure, Left Heart, Percutaneous Approach (ICD-10-PCS; 2018-07-18)
PROC: B2151ZZ Fluoroscopy of Left Heart using Low Osmolar Contrast (ICD-10-PCS; 2018-07-18)
PROC: B2111ZZ Fluoroscopy of Multiple Coronary Arteries using Low Osmolar Contrast (ICD-10-PCS; 2018-07-18)
DX: I13.0 Hypertensive heart and chronic kidney disease with heart failure and stage 1 through stage 4 chronic kidney disease, or unspecified chronic kidney disease (principal); I50.43 Acute on chronic combined systolic (congestive) and diastolic (congestive) heart failure; N17.9 Acute kidney failure, unspecified; E87.4 Mixed disorder of acid-base balance; Z68.43 Body mass index [BMI] 50.0-59.9, adult; E66.2 Morbid (severe) obesity with alveolar hypoventilation; N18.3 Chronic kidney disease, stage 3 (moderate); I25.10 Atherosclerotic heart disease of native coronary artery without angina pectoris; I27.20 Pulmonary hypertension, unspecified; E11.22 Type 2 diabetes mellitus with diabetic chronic kidney disease; I42.0 Dilated cardiomyopathy; E87.6 Hypokalemia; E55.9 Vitamin D deficiency, unspecified; D64.9 Anemia, unspecified; B19.20 Unspecified viral hepatitis C without hepatic coma; M1A.31 Chronic gout due to renal impairment, shoulder; R09.02 Hypoxemia; E88.81 Metabolic syndrome and other insulin resistance; I08.1 Rheumatic disorders of both mitral and tricuspid valves; E78.00 Pure hypercholesterolemia, unspecified; E78.5 Hyperlipidemia, unspecified; Z96.651 Presence of right artificial knee joint; Z79.4 Long term (current) use of insulin; Z79.02 Long term (current) use of antithrombotics/antiplatelets; Z88.6 Allergy status to analgesic agent; Z83.3 Family history of diabetes mellitus